=== PATIENT | male | born 1965 | race Caucasian/White ===

== ENCOUNTER 2016-12-07 17:04 | Emergency (ER) | payer OTHER ==
[~2016-12-07] VITALS: Ht 182.9 cm; Wt 149.1 kg
[~2016-12-07 17:04] MED LIST: OXYC-57 PO; RIVA1TAB4 PO; TYLOTC500 PO
[2016-12-07 17:13] VITALS: TEMP 36.8
[2016-12-07 17:36] VITALS: Ht 182.9 cm; Wt 149.1 kg
[2016-12-07] MEDS ORDERED: ALBUT/IPRATROP 3MG/0.5MG NEB 3 ML VIAL INH STA (17:43)
[2016-12-07] MEDS ORDERED: MAGNESIUM SULFATE 1GM / D5W 1 GM BAG IV STA (17:43)
[2016-12-07] MEDS ORDERED: METHYLPREDNISOLONE 125 MG VIAL IV STA (17:43)
[2016-12-07] MEDS ORDERED: AZITHROMYCIN 250 MG TAB PO ONE (17:45)
[2016-12-07 17:50] VITALS: O2SAT 95
[2016-12-07 17:52] LABS: BASO % 0.6 %; BASO ABS # 0.05 K/uL (0-0.2); COMPLETE YES; HEMATOCRIT 44.2 % (42-52); IG% 2.1 %; LYMPH % 30.1 %; LYMPH ABS # 2.45 K/uL (1.2-3.4); MEAN CELL VOLUME 90.8 fL (80-100); MEAN CORPUSCULAR HEMOGLOBIN 29.8 pg (25-34); MEAN CORPUSCULAR HGB CONC 32.8 g/dl (32-36); MEAN PLATELET VOLUME 9.7 fL (7.4-10.4); MONO % 9.5 %; NEUT % 54.7 %; PLATELET COUNT 319 K/uL (130-400); RED BLOOD COUNT 4.87 M/uL (4.7-6.1); WHITE BLOOD COUNT 8.13 K/uL (4.8-10.8)
--- NOTE | 2016-12-07 17:52 | EMERGENCY ROOM VISIT NOTE ---
History First contact with patient: 17:13 (Andrea Hope M.D.) First contact with patient: 17:13 (Elbert Smallwood M.D.) Chief Complaint: SHORTNESS OF BREATH Stated Complaint: SHORTNESS OF BREATH History of Present Illness The patient is a 51 year old male who presents to the Emergency Room with complaints of progressive shortness of breath and cough for 2 weeks. He states he was well previously, and then developed SOB that is worse on exertion as well as a dry hacking cough. He denies a history of asthma or COPD, and states he was exposed to asbestos and therefore has PFTs yearly to check for lung disease, and that his last one was approximately a year ago and was normal. He is also a smoker, and has a 40 pack year history. He denies fever, chest pain, night sweats, nausea, vomiting, or abdominal pain, but states he has also had diarrhea for the last 2 weeks. Over the last year, he states he has been unable to lie flat when sleeping as he gets short of breath and wakes up in the middle of the night with SOB. He has a history of sleep apnea but has not used his CPAP for the last 4 days. Of note, he also has a history of factor V leiden and has previously had blood clots in his legs and lungs. He is currently on a NOAC and states that he has been compliant with this medication. He denies recent surgery, but states he did drive back from [place] 3 days ago, which was a [address] He also has a history of an aortic aneurysm repair. He states he has a history of chronic leg edema for which he uses compression stockings and a water pill, but states that today they are not as swollen as he has not been working in the last two days. He denies alcohol use and recreational drugs. (Andrea Hope M.D.) Review of Systems See HPI for pertinent positives & negatives. A total of 10 systems reviewed and were otherwise negative. (Andrea Hope M.D.) Family History Diabetes mellitus (Andrea Hope M.D.) Diabetes mellitus (Elbert Smallwood M.D.) Social History Smoking Status: Current Every Day Smoker Alcohol Use: none Drug Use: none Housing Status: other Occupation Status: employed (Andrea Hope M.D.) Current/Historical Medications Scheduled Atorvastatin (Lipitor), 1 TAB PO DAILY Azithromycin (Zithromax Z-Palomo), 1 PKT PO UD Edoxaban Tosylate (Savaysa), 60 MG PO DAILY Furosemide (Lasix), 20 MG PO DAILY Ipratropium-Albuterol (Combivent Respimat), 2 PUFFS INH QID Omeprazole (Prilosec), 40 MG PO DAILY Prednisone (Prednisone Tab), 20 MG PO UD Tadalafil (Cialis), 5 MG PO DAILY Tamsulosin Hcl (Flomax), 0.4 MG PO DAILY Physical Exam Vital Signs Date Time Temp Pulse Resp B/P (MAP) Pulse Ox O2 Delivery O2 Flow Rate FiO2 12/07/16 22:36 88 26 128/67 91 12/07/16 21:35 93 12/07/16 21:30 24 126/68 91 Room Air 12/07/16 20:30 78 22 124/72 91 Room Air 12/07/16 19:28 93 26 126/77 93 Room Air 12/07/16 18:30 101 28 126/68 100 Nebulizer 5.0 12/07/16 18:14 79 18 98 Room Air 12/07/16 17:50 95 Room Air 12/07/16 17:50 95 Room Air 12/07/16 17:50 95 Room Air 12/07/16 17:29 90 12/07/16 17:13 36.8 89 22 138/87 94 Room Air (Elbert Smallwood M.D.) Physical Exam General: The patient appeared short of breath after walking from the triage area to his room. He also had several coughing fits during his H&P. HEENT: Head - normocephalic and atraumatic. Pupils are equal, round, and reactive to light. Extraocular eye muscles are intact and sclera are anicteric. Ears - bilaterally patent canals with noninjected tympanic membranes and no evidence of hemotympanum. Nose - moist nasal mucosa without discharge. Mouth - moist buccal mucosa. Oropharynx is nonerythematous and there is no tonsillar exudate or edema noted. Neck: Supple; no JVD, nuchal rigidity, cervical lymphadenopathy, or auscultated bruits. Heart: Regular rate and rhythm. There is a normal S1 and S2 with no murmurs, clicks, or gallops appreciated. Lungs: Diffuse wheezing bilaterally. No crackles or rales. Abdomen: Soft, completely nontender, nondistended, with good bowel sounds. There are no palpable pulsatile masses or hepatosplenomegaly. There is no guarding, rigidity, or rebound noted. Extremities: Bilateral edema of legs with chronic venous stasis dermatitis. No erythema, not tender to touch. Neuro:The patient is awake and alert, oriented to day, time, and place. Muscle strength is 5/5 in all 4 extremities. The patient has equal dedicated driver strength and equal pedal push and pull. There are no cerebellar signs. (Andrea Hope M.D.) Medical Decision & Procedures ER Provider Diagnostic Interpretation: CHEST ONE VIEW PORTABLE CLINICAL HISTORY: Dyspnea. Respiratory distress. COMPARISON STUDY: Chest radiograph November 28, 2014. FINDINGS: Note is made of lordotic positioning. The patient is also mildly rotated. There is no pneumothorax. Minimal left basilar opacity is suggestive of atelectasis. There is no consolidation to suggest pneumonia. Mild cardiomegaly is noted. There is pulmonary vascular congestion without overt edema. There is a trace right pleural effusion. IMPRESSION: 1. Pulmonary vascular congestion without overt pulmonary edema. 2. Suspected trace right pleural effusion. (CHEST FOR PE) ANGIO WITH CT DOSE: 773.79 mGy.cm HISTORY: 51 years-old Male presents with acute atypical chest pain with history of pulmonary embolus TECHNIQUE: Multiple CTA images of the chest were obtained after the intravenous administration of 115 ml Optiray 320. Coronal and sagittal MIPS were obtained from the axial data set and were submitted for review. A dose lowering technique was utilized adhering to the principles of ALARA. COMPARISON: CTA of the chest 08/07/2013. FINDINGS: CTA: Heart is mildly enlarged. No pericardial effusion. Coronary arterial calcifications noted. Thoracic aorta is normal in both course and caliber without aneurysm or dissection. Mild atherosclerotic plaquing of the aorta. The pulmonary arterial tree is opacified to level of the proximal segmental branches. The distal segmental and subsegmental branches are not well opacified. Study is also limited secondary to respiratory motion. No central pulmonary embolus. CT CHEST: No thyroid nodule identified. No pathologic adenopathy seen. Trace right pleural effusion. No pneumothorax. Bronchial wall thickening with areas of peripheral subpleural tree-in-bud nodularity are seen throughout the right lung. Subpleural nodules of the right lung base are seen measuring up to 3 mm. Mild dependent right basilar atelectasis. Mild bronchial wall thickening with some mucous plugging is also seen within the left lung base. No pneumothorax. Mild centrilobular emphysema. The upper abdominal structures are unremarkable. Soft tissues are within normal limits. The bones appear intact. Multilevel endplate spurring of the spine. IMPRESSION: 1. No acute aortic pathology or evidence of pulmonary thromboembolic disease. 2. Trace right pleural effusion with tree-in-bud nodularity and bronchial wall thickening of the right lung suggests bronchitis with bronchiolitis. Mild bronchial wall thickening is also seen on the left. 3. Mild centrilobular emphysema. BILATERAL LOWER EXTREMITY VENOUS DOPPLER HISTORY: Acute bilateral lower extremity swelling with shortness of breath prior h/o b/l DVT, b/l LE swelling, travel 11 hrs by car, SOB COMPARISON STUDY: Duplex venous study 08/11/2013. FINDINGS: RIGHT: There is normal compressibility, flow, and augmentation within the bilateral lower extremity deep venous systems. LEFT: Echogenic stranding is seen within the left superficial femoral through popliteal veins without occlusive thrombus identified. The calf vessels appear to be within normal limits. IMPRESSION: 1. No sonographic evidence of deep venous thrombosis within the right lower extremity. 2. Echogenic stranding within the left superficial femoral and popliteal veins suggests fibrin stranding from chronic DVT. No occlusive deep venous thrombosis of the left lower extremity identified. (Andrea Hope M.D.) Laboratory Results 12/07/16 17:30 Red Blood Count 4.87, Mean Corpuscular Volume 90.8, Mean Corpuscular Hemoglobin 29.8, Mean Corpuscular Hemoglobin Concent 32.8, Mean Platelet Volume 9.7, Neutrophils (%) (Auto) 54.7, Lymphocytes (%) (Auto) 30.1, Monocytes (%) (Auto) 9.5, Eosinophils (%) (Auto) 3.0, Basophils (%) (Auto) 0.6, Neutrophils # (Auto) 4.45, Lymphocytes # (Auto) 2.45, Monocytes # (Auto) 0.77, Eosinophils # (Auto) 0.24, Basophils # (Auto) 0.05 12/07/16 17:30 Test 12/07/16 17:30 12/07/16 17:52 12/07/16 19:30 White Blood Count 8.13 K/uL (4.8-10.8) Red Blood Count 4.87 M/uL (4.7-6.1) Hemoglobin 14.5 g/dL (14.0-18.0) Hematocrit 44.2 % (42-52) Mean Corpuscular Volume 90.8 fL (80-100) Mean Corpuscular Hemoglobin 29.8 pg (25-34) Mean Corpuscular Hemoglobin Concent 32.8 g/dl (32-36) Platelet Count 319 K/uL (130-400) Mean Platelet Volume 9.7 fL (7.4-10.4) Neutrophils (%) (Auto) 54.7 % Lymphocytes (%) (Auto) 30.1 % Monocytes (%) (Auto) 9.5 % Eosinophils (%) (Auto) 3.0 % Basophils (%) (Auto) 0.6 % Neutrophils # (Auto) 4.45 K/uL (1.4-6.5) Lymphocytes # (Auto) 2.45 K/uL (1.2-3.4) Monocytes # (Auto) 0.77 K/uL (0.11-0.59) Eosinophils # (Auto) 0.24 K/uL (0-0.5) Basophils # (Auto) 0.05 K/uL (0-0.2) RDW Standard Deviation 43.5 fL (36.4-46.3) RDW Coefficient of Variation 13.3 % (11.5-14.5) Immature Granulocyte % (Auto) 2.1 % Immature Granulocyte # (Auto) 0.17 K/uL (0.00-0.02) Prothrombin Time 10.9 SECONDS (9.0-12.0) Prothromb Time International Ratio 1.0 (0.9-1.1) Activated Partial Thromboplast Time 28.0 SECONDS (21.0-31.0) Partial Thromboplastin Ratio 1.1 Est Creatinine Clear Calc Drug Dose 166.2 ml/min Estimated GFR () 120.5 Estimated GFR (Non- 104.0 BUN/Creatinine Ratio 12.6 (10-20) Calcium Level 9.4 mg/dl (8.5-10.1) Phosphorus Level 4.8 mg/dl (2.5-4.9) Magnesium Level 2.0 mg/dl (1.8-2.4) Total Bilirubin 0.5 mg/dl (0.2-1) Aspartate Amino Transf (AST/SGOT) 20 U/L (15-37) Alanine Aminotransferase (ALT/SGPT) 34 U/L (12-78) Alkaline Phosphatase 76 U/L (45-117) Troponin I < 0.015 ng/ml (0-0.045) Pro-B-Type Natriuretic Peptide 33 pg/ml (0-900) Total Protein 7.9 gm/dl (6.4-8.2) Albumin 3.3 gm/dl (3.4-5.0) Globulin 4.6 gm/dl (2.5-4.0) Albumin/Globulin Ratio 0.7 (0.9-2) Bedside Hemoglobin 15.3 g/dl (14.0-18.0) Bedside Hematocrit 45 % (42-52) Bedside Sodium 141 mEq/L (135-144) Bedside Potassium 4.0 mEq/L (3.3-5.0) Bedside Chloride 101 mEq/L (101-112) Bedside Total CO2 27 mEq/l (24-31) Anion Gap 17.0 mmol/L (16-25) Bedside Blood Urea Nitrogen 9 mg/dl (7-18) Bedside Creatinine 0.8 mg/dl (0.6-1.3) Bedside Glucose (other) 73 mg/dl (70-99) Bedside Ionized Calcium (Maria Isabel) 1.24 mmol/l (1.12-1.32) Urine Color YELLOW Urine Appearance CLEAR (CLEAR) Urine pH 5.0 (4.5-7.5) Urine Specific [place] > 1.045 (1.000-1.030) Urine Protein 1+ (NEG) Urine Glucose (UA) NEG (NEG) Urine Ketones NEG (NEG) Urine Occult Blood NEG (NEG) Urine Nitrite NEG (NEG) Urine Bilirubin NEG (NEG) Urine Urobilinogen NEG (NEG) Urine Leukocyte Esterase NEG (NEG) Urine WBC (Auto) 1-5 /hpf (0-5) Urine RBC (Auto) 0-4 /hpf (0-4) Urine Hyaline Casts (Auto) 0 /lpf (0-5) Urine Epithelial Cells (Auto) 0-5 /lpf (0-5) Urine Bacteria (Auto) NEG (NEG) (Elbert Smallwood M.D.) Medications Administered Medications (Trade) Dose Ordered Sig/Emily Route Start Time Stop Time Status Last Admin Dose Admin Methylprednisolone Sodium Succinate (Solu-Medrol IV) 125 mg NOW STAT IV 12/07/16 17:43 12/07/16 17:45 DC 12/07/16 17:43 125 MG Magnesium Sulfate (Magnesium Sulfate) 1 gm NOW STAT IV 12/07/16 17:43 12/07/16 17:45 DC 12/07/16 17:43 1 GM Azithromycin (Zithromax Tab) 500 mg NOW ONCE PO 12/07/16 17:45 12/07/16 17:46 DC 12/07/16 19:30 500 MG Albuterol/ Ipratropium (Duoneb) 12 ml ONE STAT INH 12/07/16 17:43 12/07/16 17:45 DC 12/07/16 18:13 12 ML Albuterol (Ventolin Hfa Inhaler) 60 puffs STK-MED ONCE INH 12/07/16 22:23 12/07/16 22:24 DC 12/07/16 22:27 60 PUFFS (Elbert Smallwood M.D.) ECG Indication: SOB/dyspnea Rate (beats per minute): 88 Rhythm: normal sinus Findings: other (normal axis, no ectopy, no STS changes or TWI) (Elbert Smallwood M.D.) ED Course 17:13: The patient was evaluated in room B8. A complete history and physical examination were performed 17:40: The patient was seen with the attending, Dr. Smallwood 17:50: Combivent nebulizers, IV magnesium, 125mg of IV methylprednisone and 500mg of azithromycin ordered 19:15: The patient was reassessed. He is currently on the duonebs, states his breathing is about the same. He was told that his CTA was negative for a clot, but showed mild emphysematous changes & bronchitis. 19:56: The patient was reevaluated. He states his breathing is better. He was up and walking around his room and pulse ox remained 95%. Will try having him walk the hallways and see if his pulse ox remains stable. Discussed d/c with him and that we would d/c him with inhalers, oral steroids and antibiotics. He was agreeable to this. 21:16: US was negative for new DVT. He walked around the hallways and pulse ox remained above 90%, though he looked winded. He states he wants to be discharged home as he has to drive back to [place] tomorrow. Discussed his underlying COPD and smoking cessation. Patient states he has tried Chantix and patch previously and this has not worked, but is agreeable to following up with PCP regarding smoking cessation. (Adnrea Hope M.D.) Medical Decision The patient is a 51 year old male who presents to the Emergency Room with complaints of progressive shortness of breath and cough for 2 weeks. Etiologies including pneumonia, COPD, reactive airway disease, CHF, cardiac ischemia, pulmonary embolism, pneumothorax, musculoskeletal, infections, gastrointestinal , as well as others were entertained. His CT for PE came back negative, and suggested that his symptoms were due to a COPD exacerbation. His ultrasound did not show any evidence of an acute DVT. He states he would like to be discharged, and we will be discharging him with a prescription for prednisone, combivent and azithromycin. He was counselled on resting, not over-exerting himself, and seeking medical attention if he developed chest pain, worsening SOB, or new onset leg swelling, pain and redness. (Andrea Hope M.D.) Impression Primary Impression: COPD exacerbation Additional Impression: Encounter for smoking cessation counseling Departure Information Dispostion Home / Self-Care Prescriptions Prednisone (Prednisone Tab) 20 Mg Tab 20 MG PO UD for 9 Days, #18 TAB Please take 3 pills for 3 days Then 2 pills for 3 days Then 1 pill for 3 days Prov: Andrea Hope M.D. 12/07/16 Ipratropium-Albuterol (COMBIVENT RESPIMAT) 1 Aer Aer 2 PUFFS INH QID for 30 Days, #1 INH Prov: Andrea Hope M.D. 12/07/16 Azithromycin (ZITHROMAX Z-PALOMO) 250 Mg Tab 1 PKT PO UD for 5 Days, #1 PKT Prov: Andrea Hope M.D. 12/07/16 Enid Ferrera M.D. (PCP) Patient Instructions My [facility] Additional Instructions You came to [facility] Emergency Department due to a 2 week history of cough and shortness of breath. Your symptoms are likely due to an infective exacerbation of your underlying COPD. We will be discharging you with a tapering dose of oral steroids, antibiotics and inhalers. If you have any chest pain, worsening shortness of breath, or have a hot, swollen, tender leg, please seek medical attention immediately. The best thing you can do for your symptoms is to quit smoking, as smoking will only worsen your COPD. You have cut down to 5 cigarettes a day for the past 2 weeks, please try not to go back to smoking a pack a day and follow up with your primary care provider regarding smoking cessation and treatment for your COPD. Resident Tracking Resident Involvement: Resident Care Provided Care Provided: Adult ED (Andrea Hope M.D.) Problem Qualifiers
[2016-12-07] MEDS ORDERED: OPTIRAY 320 IV PRN (18:00)
[2016-12-07 18:02] LABS: PARTIAL THROMBOPLASTIN RATIO 1.1; PROTHROMBIN TIME (PATIENT) 10.9 SECONDS (9.0-12.0)
[2016-12-07 18:04] LABS: ISTAT CREATININE 0.8 mg/dl (0.6-1.3); ISTAT HEMOGLOBIN 15.3 g/dl (14.0-18.0); ISTAT IONIZED CALCIUM 1.24 mmol/l (1.12-1.32)
[2016-12-07 18:07] LABS: ALT/SGPT 34 U/L (12-78); BLOOD UREA NITROGEN 10 mg/dl (7-18); BUN/CREATININE RATIO 12.6 (10-20); CALCIUM 9.4 mg/dl (8.5-10.1); CARBON DIOXIDE 27 mmol/L (21-32); CHLORIDE 104 mmol/L (98-107); CREATININE 0.79 mg/dl (0.60-1.40); GLUCOSE 74 mg/dl (70-99); POTASSIUM 4.1 mmol/L (3.5-5.1); SODIUM 139 mmol/L (136-145)
[2016-12-07 18:12] LABS: ALB/GLOB RATIO 0.7 (0.9-2); ALKALINE PHOSPHATASE 76 U/L (45-117); AST/SGOT 20 U/L (15-37); PHOSPHORUS 4.8 mg/dl (2.5-4.9)
[2016-12-07 18:14] VITALS: PULSE 79; O2SAT 98
[2016-12-07] MEDS ORDERED: TAMS0.4C38 PO (18:18)
[2016-12-07] MEDS ORDERED: FURO-85 PO (18:18)
[2016-12-07] MEDS ORDERED: ATOR-24 PO (18:18)
[2016-12-07] MEDS ORDERED: [UNRECOGNIZED DRUG - REMARK] PO (18:18)
[2016-12-07] MEDS ORDERED: TADA5TAB11 PO (18:18)
[2016-12-07] MEDS ORDERED: OMEP40CA41 PO (18:18)
--- NOTE | 2016-12-07 18:20 | DIAGNOSTIC IMAGING REPORT ---
CHEST ONE VIEW PORTABLE CLINICAL HISTORY: Dyspnea. Respiratory distress. COMPARISON STUDY: Chest radiograph November 28, 2014. FINDINGS: Note is made of lordotic positioning. The patient is also mildly rotated. There is no pneumothorax. Minimal left basilar opacity is suggestive of atelectasis. There is no consolidation to suggest pneumonia. Mild cardiomegaly is noted. There is pulmonary vascular congestion without overt edema. There is a trace right pleural effusion. IMPRESSION: 1. Pulmonary vascular congestion without overt pulmonary edema. 2. Suspected trace right pleural effusion. Electronically signed by: Lalo Wright M.D. 12/07/2016 6:18 PM Dictated Date/Time: 12/07/2016 6:17 PM
[2016-12-07] MEDS ORDERED: EDOX1TAB2 PO (18:26)
--- NOTE | 2016-12-07 18:53 | EMERGENCY ROOM VISIT NOTE ---
ED Visit Note First contact with patient: 17:13 The patient was seen and examined with Dr. Hope. I agree with the history , physical and findings. Please see the note for disposition and details. Patient was seen and examined along with the resident. Patient did have a prior history of DVT AAA status post repair. Patient was presenting with some progressively worsening shortness of breath ongoing the last 2 weeks. Patient had been complaining of some infectious symptoms and productive sputum. Patient states that his been trying different novel oral anticoagulant agents was most recently on Sayasa. Patient does have some mild shallow breathing and mild tachypnea after walking back to the room. Patient states this does not feel like the prior time he had a AAA rupture. He denies any abdominal pain or nausea or vomiting. On exam patient doesn't fairly wheezy. Patient does have a chronic history of smoking however he does not take any medications for that. Patient did have blood work, EKG, troponin, BNP chest x-ray, CT PE, and bilateral lower extremity DVT studies. Patient's blood work is fairly unremarkable. Patient had a fairly unremarkable BNP. Patient's white count was within normal limits. Patient's chest x-ray did have some venous congestion but without interstitial pulmonary edema. No consolidation pneumothorax or pleural effusion. Patient's EKG was nonischemic and patient's troponin was not elevated. Patient's CT PE protocol was negative for any PE. Patient was feeling improved after nebs, steroids, mg, and azithro. Patient was told he could stay in house for further trx after his walk test as he did have mild SOB but was not hypoxic. Patient declined after discussing the risk and return precautions. D/c'ed to home w/ Rx's and was counseled on inhaler use as he had not had this prior.
--- NOTE | 2016-12-07 19:06 | DIAGNOSTIC IMAGING REPORT ---
(CHEST FOR PE) ANGIO WITH CT DOSE: 773.79 mGy.cm HISTORY: 51 years-old Male presents with acute atypical chest pain with history of pulmonary embolus TECHNIQUE: Multiple CTA images of the chest were obtained after the intravenous administration of 115 ml Optiray 320. Coronal and sagittal MIPS were obtained from the axial data set and were submitted for review. A dose lowering technique was utilized adhering to the principles of ALARA. COMPARISON: CTA of the chest 08/07/2013. FINDINGS: CTA: Heart is mildly enlarged. No pericardial effusion. Coronary arterial calcifications noted. Thoracic aorta is normal in both course and caliber without aneurysm or dissection. Mild atherosclerotic plaquing of the aorta. The pulmonary arterial tree is opacified to level of the proximal segmental branches. The distal segmental and subsegmental branches are not well opacified. Study is also limited secondary to respiratory motion. No central pulmonary embolus. CT CHEST: No thyroid nodule identified. No pathologic adenopathy seen. Trace right pleural effusion. No pneumothorax. Bronchial wall thickening with areas of peripheral subpleural tree-in-bud nodularity are seen throughout the right lung. Subpleural nodules of the right lung base are seen measuring up to 3 mm. Mild dependent right basilar atelectasis. Mild bronchial wall thickening with some mucous plugging is also seen within the left lung base. No pneumothorax. Mild centrilobular emphysema. The upper abdominal structures are unremarkable. Soft tissues are within normal limits. The bones appear intact. Multilevel endplate spurring of the spine. IMPRESSION: 1. No acute aortic pathology or evidence of pulmonary thromboembolic disease. 2. Trace right pleural effusion with tree-in-bud nodularity and bronchial wall thickening of the right lung suggests bronchitis with bronchiolitis. Mild bronchial wall thickening is also seen on the left. 3. Mild centrilobular emphysema. The above report was generated using voice recognition software. It may contain grammatical, syntax or spelling errors. Electronically signed by: Sohan Escobar M.D. 12/07/2016 7:04 PM Dictated Date/Time: 12/07/2016 6:56 PM
[2016-12-07 19:43] LABS: URINE APPEARANCE CLEAR (CLEAR); URINE BILIRUBIN NEG (NEG); URINE COLOR YELLOW; URINE EPITHELIAL CELL AUTO 0-5 /lpf (0-5); URINE NITRITE NEG (NEG); URINE SPECIFIC GRAVITY > 1.045 (1.000-1.030); UROBILINOGEN NEG (NEG)
[2016-12-07 19:45] LABS: MANUAL MICROSCOPIC REQUIRED? NO; REVIEW REQ? NO
--- NOTE | 2016-12-07 20:45 | DIAGNOSTIC IMAGING REPORT ---
BILATERAL LOWER EXTREMITY VENOUS DOPPLER HISTORY: Acute bilateral lower extremity swelling with shortness of breath prior h/o b/l DVT, b/l LE swelling, travel 11 hrs by car, SOB COMPARISON STUDY: Duplex venous study 08/11/2013. FINDINGS: RIGHT: There is normal compressibility, flow, and augmentation within the bilateral lower extremity deep venous systems. LEFT: Echogenic stranding is seen within the left superficial femoral through popliteal veins without occlusive thrombus identified. The calf vessels appear to be within normal limits. IMPRESSION: 1. No sonographic evidence of deep venous thrombosis within the right lower extremity. 2. Echogenic stranding within the left superficial femoral and popliteal veins suggests fibrin stranding from chronic DVT. No occlusive deep venous thrombosis of the left lower extremity identified. Electronically signed by: Sohan Escobar M.D. 12/07/2016 8:43 PM Dictated Date/Time: 12/07/2016 8:39 PM
[2016-12-07] MEDS ORDERED: PRED20TA2 PO ×4 (21:25→21:49)
[2016-12-07] MEDS ORDERED: IPRA1AER2 INH ×4 (21:25→21:49)
[2016-12-07] MEDS ORDERED: AZITTAB PO ×4 (21:25→21:49)
[2016-12-07] MEDS ORDERED: ALBUTEROL HFA 8 GM INHALER INH ONE ×2 (22:23→22:30)
[2016-12-07 22:36] VITALS: BP 128/67; PULSE 88; O2SAT 91
== END 2016-12-07 22:30 | disposition home or self-care (01) ==
LOC: C.EDB 17:06
DX: J44.1 Chronic obstructive pulmonary disease with (acute) exacerbation (principal); Z71.6 Tobacco abuse counseling; J45.909 Unspecified asthma, uncomplicated; F17.200 Nicotine dependence, unspecified, uncomplicated; Z86.718 Personal history of other venous thrombosis and embolism; Z79.899 Other long term (current) drug therapy; Z98.890 Other specified postprocedural states; Z83.3 Family history of diabetes mellitus

== ENCOUNTER → 2017-03-11 | Day surgery (SDC) | payer OTHER ==
[2017-02-17 15:00] VITALS: Ht 185.4 cm; Wt 144.1 kg
[~2017-03-11] VITALS: Ht 185.4 cm; Wt 144.1 kg
[~2017-03-11] MED LIST changes: +APIX1TAB3 PO; +ASPI325T45 PO; +ATOR-24 PO; +DTRSR/2 PO; +FENTANYL CITRATE INJ 50 MCG/1 ML 2 ML VIAL ONE; +LIDOCAINE HCL 2% 2 ML VIAL (20MG/ML) ONE; +OMEP40CA41 PO; -OXYC-57 PO; +PROPOFOL IV EMULSION 10 MG/ML 20 ML VIAL IV ONE; -RIVA1TAB4 PO; +TADA5TAB11 PO; +TAMS0.4C38 PO; -TYLOTC500 PO
--- NOTE | 2017-03-11 15:11 | Endo History and Physical ---
History & Physical Date of Service: Mar 11, 2017. Chief Complaint: dysphagia Referring Physician: Brenda Bassett PA-C History of Present Illness For EGD Past Medical History Thrombophlebitis Past Surgical History Hx Cardiac Surgery: Yes (AAA REPAIR) Hx Internal Defibrillator: No Hx Pacemaker: No Hx Abdominal Surgery: No Hx of Implantable Prosthesis: No Hx Post-Op Nausea and Vomiting: No Hx Cancer Surgery: No Hx Thoracic Surgery: No Hx Orthopedic: Yes (RT ARM FILTER PLACEMENT FOR BLOOD CLOTS) Hx Urinary Tract Surgery: No Family History Esophogeal CA Social History Smoking Status: Current Every Day Smoker Hx Substance Use: No Hx Alcohol Use: No Allergies Coded Allergies: Shellfish (Verified Allergy, Severe, ANAPHYLAXIS, 02/17/17) Effects breathing, swelling Iodine (Verified Allergy, Intermediate, "swells up", 02/17/17) Current Medications Reported Home Medications Medications Dose Route/Sig Max Daily Dose Days Date Category Detrol LA (Tolterodine Tartrate) 2 Mg Capcr 1 Cap PO HS 02/17/17 Reported Aspirin 325 Mg Tab 1 Tab PO DAILY 02/17/17 Reported Eliquis (Apixaban) 5 Mg Tab 2 Tabs PO BID 02/17/17 Reported Flomax (Tamsulosin Hcl) 0.4 Mg Cap 0.4 Mg PO HS 12/07/16 Reported Cialis (Tadalafil) 5 Mg Tab 5 Mg PO QAM 12/07/16 Reported Lipitor (Atorvastatin Calcium) 40 Mg Tab 1 Tab PO QAM 12/07/16 Reported Prilosec (Omeprazole) 40 Mg Cap 40 Mg PO HS 12/07/16 Reported Vital Signs Weight (Kilograms): 144.09 Height (Feet): 6 Height (Inches): 1 Date Time Temp Pulse Resp B/P (MAP) Pulse Ox O2 Delivery O2 Flow Rate FiO2 03/11/17 14:49 36.5 88 22 144/91 (108) 96 Room Air Physical Exam General Appearance: + obese, + pertinent finding (large castro) Respiratory/Chest: Respiratory effort: no dyspnea Cardiovascular: Heart Auscultation: RRR Abdomen: Inspection & Palpation: soft Assessment and Plan Dysphagia for EGD
--- NOTE | 2017-03-11 15:30 | Discharge Instructions ---
Endoscopy Patient Instructions Date / Procedure(s) Performed Mar 11, 2017. EGD Allergy Information Coded Allergies: Shellfish (Verified Allergy, Severe, ANAPHYLAXIS, 02/17/17) Effects breathing, swelling Iodine (Verified Allergy, Intermediate, "swells up", 02/17/17) Discharge Date / Findings Mar 11, 2017. Schatzki ring dilated Medication Instructions Restart Stopped Medication(s): resume meds Reported Home Medications Medications Dose Route/Sig Max Daily Dose Days Date Category Detrol LA (Tolterodine Tartrate) 2 Mg Capcr 1 Cap PO HS 02/17/17 Reported Aspirin 325 Mg Tab 1 Tab PO DAILY 02/17/17 Reported Eliquis (Apixaban) 5 Mg Tab 2 Tabs PO BID 02/17/17 Reported Flomax (Tamsulosin Hcl) 0.4 Mg Cap 0.4 Mg PO HS 12/07/16 Reported Cialis (Tadalafil) 5 Mg Tab 5 Mg PO QAM 12/07/16 Reported Lipitor (Atorvastatin Calcium) 40 Mg Tab 1 Tab PO QAM 12/07/16 Reported Prilosec (Omeprazole) 40 Mg Cap 40 Mg PO HS 12/07/16 Reported Provider Instructions Activity Restrictions - No exercising or heavy lifting for 24 hours. - Do not drink alcohol the day of the procedure. - Do not drive a car or operate machinery until the day after the procedure. - Do not make any important decisions or sign important papers in 24 hours after the procedure. Following Day: - Return to full activity which may include returning to work/school. Diet Start your diet with liquids and light foods (jello, soup, juice, toast). Then eat your usual diet if not nauseated. Treatment For Common After Affects For mild abdominal pain, bloating, or excessive gas: - Rest - Eat lightly - Lie on right side Follow-Up Information Follow-up with Brenda Bassett PA-C as scheduled Anesthesia Information What You Should Know You have had a procedure that required some medicine to reduce anxiety and discomfort. This treatment is called moderate sedation. After receiving the treatment, you may be sleepy, but you will be able to breathe on your own. The effects of the treatment may last for several hours. Follow these instructions along with Activity/Diet recommendations noted above: * Do NOT do anything where dizziness or clumsiness would be dangerous. * Rest quietly at home today, then you can be up and about tomorrow. * Have a responsible person stay with you the rest of today. * You may have had an I.V. today. If so, you may take the dressing off later today. Recommendations Call your doctor if: * Trouble breathing * Continuous vomiting for more than 24 hours * Temperature above 101 degrees * Severe abdominal pain or bloating * Pain not relieved by pain medicine ordered * There is increased drainage or redness from any incision * A large amount of rectal bleeding greater than 2-3 tablespoons. (If you had a polyp/s removed or have hemorrhoids, a small amount of blood - from the rectum is to be expected.) * You have any unanswered questions or concerns. IN THE EVENT OF A SERIOUS EMERGENCY, GO TO THE NEAREST EMERGENCY ROOM Your discharge instructions were prepared by provider Dennis De Leno. Patient Instructions Signature Page Tobin lFores Patient (or Guardian) Signature/Date: I have read and understand the instructions given to me by my caregivers. Caregiver/RN/Doctor Signature/Date: The above-named patient and/or guardian has received patient instructions on this date. + Original Patient Signature Page (only) stays with chart. Please make copy for patient.
--- NOTE | 2017-03-11 15:34 | GI REPORT ---
Procedure Date: 03/11/2017 3:09 PM Procedure: Upper GI endoscopy Indications: Dysphagia Medicines: Fentanyl 100 micrograms IV, Propofol total dose 220 mg IV, Lidocaine 80 mg IV Complications: No immediate complications. Estimated Blood Loss: Estimated blood loss: none. Procedure: Pre-Anesthesia Assessment: - Prior to the procedure, a History and Physical was performed, and patient medications, allergies and sensitivities were reviewed. The patient's tolerance of previous anesthesia was reviewed. - The risks and benefits of the procedure and the sedation options and risks were discussed with the patient. All questions were answered and informed consent was obtained. After obtaining informed consent, the endoscope was passed under direct vision. Throughout the procedure, the patient's blood pressure, pulse, and oxygen saturations were monitored continuously. The scope was introduced through the mouth, and advanced to the second part of duodenum. The upper GI endoscopy was accomplished without difficulty. The patient tolerated the procedure fairly well. Findings: A mild Schatzki ring (acquired) was found at the gastroesophageal junction. A guidewire was placed and the scope was withdrawn. Dilation was performed with a Savary dilator with no resistance at 54 Fr. The Z-line was regular and was found 45 cm from the incisors. The entire examined stomach was normal. The examined duodenum was normal. Impression: - Mild Schatzki ring. Dilated. - Z-line regular, 45 cm from the incisors. - Normal stomach. - Normal examined duodenum. - No specimens collected. Recommendation: - Discharge patient to home (ambulatory). - Continue present medications. - Return to primary care physician PRN. Dennis De Leon M.D. Dennis De Leon MD 03/11/2017 3:33:36 PM This report has been signed electronically. Note Initiated On: 03/11/2017 3:09 PM I attest to the content of the Intraoperative Record and orders documented therein, exceptions below
--- NOTE | 2017-03-11 15:57 | Anesthesiology Progress Note ---
Anesthesia Post Op Note Date & Time Mar 11, 2017 at 15:57 Vital Signs Pain Intensity: 0 Vital Signs Past 12 Hours Date Time Temp Pulse Resp B/P (MAP) Pulse Ox O2 Delivery O2 Flow Rate FiO2 03/11/17 15:37 78 24 138/78 (98) 95 Oxymask 8 03/11/17 14:49 36.5 88 22 144/91 (108) 96 Room Air Notes Mental Status: alert / awake / arousable, participated in evaluation Pt Amnestic to Procedure: Yes Nausea / Vomiting: adequately controlled Pain: adequately controlled Airway Patency, RR, SpO2: stable & adequate BP & HR: stable & adequate Hydration State: stable & adequate Anesthetic Complications: no major complications apparent
[2017-03-11 16:07] VITALS: BP 129/70; PULSE 84; O2SAT 91
== END | disposition home or self-care (01) ==
LOC: C.GI 14:29
PROVIDERS: ATTEND Internal Medicine Gastroenterology
DX: R13.10 Dysphagia, unspecified (principal); D68.51 Activated protein C resistance; Z86.718 Personal history of other venous thrombosis and embolism; K22.2 Esophageal obstruction; Z98.890 Other specified postprocedural states; F17.200 Nicotine dependence, unspecified, uncomplicated; Z91.013 Allergy to seafood; Z79.4 Long term (current) use of insulin; E66.9 Obesity, unspecified; Z68.41 Body mass index [BMI] 40.0-44.9, adult; Z80.0 Family history of malignant neoplasm of digestive organs

== ENCOUNTER 2019-10-03 07:37 | Inpatient (IN) ==
--- NOTE | 2019-09-19 09:03 | PAT Medication Instructions ---
Medication Instructions Date of Service September 19, 2019 Home Medications Medication Instructions Recorded albuterol sulfate 1 inha INH QID PRN #8 gm 12/05/17 Oxygen Home #1 ea NS 09/26/18 budesonide-formoterol HFA 160 2 puffs INH BID #10.2 gm 07/19/19 mcg-4.5 mcg/actuation aerosol inhaler atorvastatin 40 mg PO QAM omeprazole 40 mg PO QAM tadalafil 5 mg PO QAM Eliquis 5 mg PO BID aspirin 1 tab PO QAM albuterol sulfate 1 inha INH QID PRN ipratropium 0.5 mg-albuterol 3 mg (2.5 mg base)/3 mL nebulization soln 3 ml INHALATION UD PRN tamsulosin 0.4 mg capsule 0.4 mg PO QPM budesonide-formoterol HFA 160 mcg-4.5 mcg/actuation aerosol inhaler 2 puffs INH BID tolterodine 2 mg capsule,extended release 24 hr 2 mg PO QAM hydrocodone-acetaminophen 1 tab PO Q6H PRN ASK your prescriber and surgeon Eliquis 5 mg PO BID aspirin 1 tab PO QAM DO NOT take the morning of surgery tadalafil 5 mg PO QAM tolterodine 2 mg capsule,extended release 24 hr 2 mg PO QAM Take morning of surgery With a small sip of water, OTHERWISE NOTHING TO EAT OR DRINK AFTER MIDNIGHT: atorvastatin 40 mg PO QAM omeprazole 40 mg PO QAM albuterol sulfate 1 inha INH QID PRN (use if needed; please bring with you to hospital day of surgery if possible) ipratropium 0.5 mg-albuterol 3 mg (2.5 mg base)/3 mL nebulization soln 3 ml INHALATION UD PRN (if needed) budesonide-formoterol HFA 160 mcg-4.5 mcg/actuation aerosol inhaler 2 puffs INH BID hydrocodone-acetaminophen 1 tab PO Q6H PRN (okay to take up to 4 hours prior to surgery if needed) Take evening before surgery albuterol sulfate 1 inha INH QID PRN (if needed) ipratropium 0.5 mg-albuterol 3 mg (2.5 mg base)/3 mL nebulization soln 3 ml INHALATION UD PRN (if needed) tamsulosin 0.4 mg capsule 0.4 mg PO QPM budesonide-formoterol HFA 160 mcg-4.5 mcg/actuation aerosol inhaler 2 puffs INH BID hydrocodone-acetaminophen 1 tab PO Q6H PRN (if needed) Other Notes If you have any questions please call us at [phone] or [phone] or [phone] or [phone]
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
[2019-09-20 10:27] LABS: Basophils # (auto) 0.11 K/uL (0-0.2); Basophils % (auto) 1.8 %; Eosinophils # (auto) 0.33 K/uL (0-0.5); Eosinophils % (auto) 5.3 %; Hematocrit (blood only) 44.8 % (42-52); Immature Granulocytes # (auto) 0.18 K/uL (0.00-0.02); Immature Granulocytes % (auto) 2.9 %; Lymphocytes # (auto) 2.09 K/uL (1.2-3.4); Lymphocytes % (auto) 33.9 %; Mean Corpuscular Hemoglobin 30.3 pg (25-34); Mean Corpuscular Hgb Conc 33.5 g/dL (32-36); Mean Corpuscular Volume 90.5 fL (80-100); Mean Platelet Volume 10.5 fL (7.4-10.4); Monocytes # (auto) 0.64 K/uL (0.11-0.59); Monocytes % (auto) 10.4 %; Neutrophils # (auto) 2.82 K/uL (1.4-6.5); Neutrophils % (auto) 45.7 %; Platelet Count 234 K/uL (130-400); RDW Coefficient of Variation 13.1 % (11.5-14.5); RDW Standard Deviation 43.3 fL (36.4-46.3); Red Blood Count 4.95 M/uL (4.7-6.1); White Blood Count 6.17 K/uL (4.8-10.8)
[2019-09-20 10:37] LABS: Partial Thromboplastin Ratio 0.9; Partial Thromboplastin Time 26.5 Seconds (21.0-31.0); Prothrombin Time 10.7 Seconds (9.0-12.0)
[2019-09-20 11:01] LABS: BUN Creatinine Ratio 10.9 (10-20); Calcium 8.7 mg/dl (8.5-10.1); Creatinine Clr Calc Pharmacy 152.4 ml/min; Est GFR (African American) 113.1; Est GFR (Non-African American) 97.6; Potassium 4.6 mmol/L (3.5-5.1)
--- NOTE | 2019-09-21 06:27 | Electrocardiogram Report ---
Test Reason : Blood Pressure : / mmHG Vent. Rate : 071 BPM Atrial Rate : 071 BPM P-R Int : 162 ms QRS Dur : 106 ms QT Int : 392 ms P-R-T Axes : 073 075 052 degrees QTc Int : 425 ms Normal sinus rhythm Normal ECG When compared with ECG of 07-DEC-2016 18:03, No significant change was found Confirmed by Kyle Mcallister ([id number]) on 09/21/2019 6:26:46 AM Referred By: Yamil Diaz Confirmed By:Kyle Mcallister
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
[~2019-10-03 07:37] MED LIST changes: +ALBUMIN HUMAN 5% 12.5 GM/250 ML VIAL IV ONE; -APIX1TAB3 PO; -ASPI325T45 PO; -ATOR-24 PO; +CEFAZOLIN 3000MG 72.5 ML IV SCH; -DTRSR/2 PO; -FENTANYL CITRATE INJ 50 MCG/1 ML 2 ML VIAL ONE; -LIDOCAINE HCL 2% 2 ML VIAL (20MG/ML) ONE; +LR 15ML/HR IV SCH; -OMEP40CA41 PO; -PROPOFOL IV EMULSION 10 MG/ML 20 ML VIAL IV ONE; -TADA5TAB11 PO; -TAMS0.4C38 PO
[2019-10-03] MEDS ORDERED: ONDANSETRON INJ 2 MG/ML 2 ML VIAL ONE (08:53)
[2019-10-03] MEDS ORDERED: PROPOFOL IV EMULSION 10 MG/ML 20 ML VIAL IV ONE ×3 (08:53→08:54)
[2019-10-03] MEDS ORDERED: LIDOCAINE HCL 2% 2 ML VIAL/AMP(20MG/ML) INFIL ONE (08:53)
[2019-10-03] MEDS ORDERED: fentaNYL citrate 100 MCG/2 ML VIAL ONE ×2 (08:54→12:54)
[2019-10-03] MEDS ORDERED: MIDAZOLAM HCL 1 MG/ML 2ML VIAL ONE (08:54)
[2019-10-03] MEDS ORDERED: PROPOFOL IV EMULSION 10 MG/ML 100 ML VIAL IV ONE ×2 (09:05→12:50)
[2019-10-03] MEDS ORDERED: KETAMINE HCL INJ 50 MG/ML 10 ML VIAL ONE (09:47)
--- NOTE | 2019-10-03 09:53 | History & Physical Bridge Note ---
Date of Service October 03, 2019 History & Physical Bridge Note I have examined the patient, reviewed the History & Physical and in the interval since the performance of the History & Physical I have noted the following changes of clinical significance: no changes noted
--- NOTE | 2019-10-03 09:54 | History & Physical Bridge Note ---
Date of Service October 03, 2019 History & Physical Bridge Note Patient for endovascular repair of right iliac artery aneurysm. Lungs are clear. Cor had a RRR. Abd exam is benign. rest of physical exam in the h&p is unchanged. I have examined the patient, reviewed the History & Physical and in the interval since the performance of the History & Physical I have noted the following changes of clinical significance: no changes noted
[2019-10-03] MEDS ORDERED: DiphenhydrAMINE HCL 50 MG/ML VIAL IV ONE (10:14)
[2019-10-03] MEDS ORDERED: GLYCOPYRROLATE 0.2 MG/ML VIAL ONE (10:16)
[2019-10-03] MEDS ORDERED: FAMOTIDINE 20 MG in SYRINGE 3 ML IV ONE (10:20)
[2019-10-03] MEDS ORDERED: LIDOCAINE/EPINEPHRINE 1% INJ 50 ML VIAL ONE (10:20)
[2019-10-03] MEDS ORDERED: LIDOCAINE 2% JELLY 5 ML TUBE ONE ×2 (10:25→11:18)
[2019-10-03] MEDS ORDERED: ATROPINE SULFATE 0.1 MG/ML 10ML SYR IV PRN (10:49)
[2019-10-03] MEDS ORDERED: ONDANSETRON INJ 2 MG/ML 2 ML VIAL IV PRN (10:49)
[2019-10-03] MEDS ORDERED: PROMETHAZINE HCL 12.5 MG in SODIUM CHLORIDE 0.9% 50 ML IV PRN (10:49)
[2019-10-03] MEDS ORDERED: ePHEDrine sulfate 50 MG/ML AMP IV PRN (10:49)
[2019-10-03] MEDS ORDERED: HYDROmorphone INJ 2 MG/ML SYR/VIAL IV PRN (10:49)
[2019-10-03] MEDS ORDERED: fentaNYL citrate 100 MCG/2 ML VIAL IV PRN (10:49)
[2019-10-03] MEDS ORDERED: METOCLOPRAMIDE HCL INJ 5 MG/ML 2 ML VIAL IV PRN (10:49)
[2019-10-03] MEDS ORDERED: ALBUTEROL HFA INHALER 8.5 GM ONE (12:16)
[2019-10-03] MEDS ORDERED: HEPARIN SOD (PORCINE) 1000 UNIT/ML 10 ML VIAL ONE (13:18)
[2019-10-03] MEDS ORDERED: OPTIRAY 300 IV PRN (13:20)
[2019-10-03] MEDS ORDERED: VISIPAQUE IV PRN (13:22)
--- NOTE | 2019-10-03 13:30 | Procedure Note ---
Angiogram Post Procedure Fluoroscopy Time (minutes): 28.3 Radiation (mGy): 2,874.25 Contrast: 50cc Post Operative Report Pre & Post Diagnosis Operation Date: 10/03/19 09:40 Pre-Op Diagnosis: Right Common Iliac Aneurysm Post-Op Diagnosis: Right Common Iliac Aneurysm I identified the patient and participated in the time-out.: Yes Procedure Operation Date: 10/03/19 09:40 Actual Procedures p Percutaneous Endovascular Repair of Right Iliac Artery Aneurysm, Emoblization Ultrasound Localization of Right Femoral Artery(Bilateral) - Yamil Diaz MD Surgeon Yamil Diaz MD Pharmacist Technician Sol Hernandez MD; Brie DOWLING Estimated Blood Loss 50 Findings Consistent with Post-Op Diagnosis Specimens None Anesthesia Type MAC Complications none Disposition Accompanied Patient To Recovery: No Disposition: Recovery Room Indications Right distal external iliac and internal iliac artery aneurysm Description of Procedure The patient was taken to the operating suite. The patient's identity, surgical site, and the procedure were verified. The patient was placed on the operating room table in the supine position. A timeout was performed. Anesthesia administered conscious sedation. The bilateral groins were prepped and draped in the usual standard fashion. Under ultrasound guidance the right common femoral artery was accessed with a needle. A J-wire was advanced through the needle, and the needle was exchanged for a 5F sheath. Hand injection of contrast revealed that our access site was in the common femoral artery over the femoral head. The J-wire was exchanged for an angled glidewire.a glide We attempted to preclose with Perclose devices however each time we attempted to advance the Perclose device into the artery, the device would buckle in the subcutaneous tissue. We tried to troubleshoot this by opening the subcutaneous tissue more with a hemostat, by pre-dilating with a 6F and 8F dilator, and by advancing over stiffer wires (stiff angled glidewire and Layla wire). Despite our attempts, we could not place the Perclose devices for pre-closure, thus we abandoned this and proceeding with the case, with plan to hold manual pressure at the end of the case. Through an 8F sheath, a Rim catheter and an angled glidewire were used to access the right hypogastric artery. An 8F destination sheath was advanced into the proximal right hypogastric artery. Through the destination sheath a 22mm x 18mm amplatzer plug was deployed into the hypogastric. Hand injection through the sheath after it was pulled back into the origin of the external iliac artery revealed that the plug extended to the origin of the hypogastric but did not extend into the common iliac. Flow through the common iliac artery into the external iliac artery remained intact. A glidewire and Kumpke catheter were advanced through the aortic stent. The 8F sheath was exchanged for a 12F sheath over a layla wire. Through the 12F sheath and over a Layla wire the right iliac limb gristmill operator (16mm x 14.5mm x 14cm) was advanced. This was deployed so that there was good overlap with the existing right iliac limb but extending across the origin of the hypogastric into the external iliac artery. After the gristmill operator was deployed a Q50 balloon was inflated along its length to ensure good wall apposition. The glidewire and Kumpe catheter were again placed at the proximal aspect of the aortic graft for a completion angiogram. This demonstrated patent bilateral limbs of the graft, good position of the gristmill operator so that it was covering the origin of the hypogastric on the right. There were no endoleaks. The hypogastric on the left appeared patent. No flow was noted in the hypogastric on the right around the coil. The sheath was then pulled from the groin and manual pressure was held for 30 minutes. The patient tolerated the procedure well and without immediate comp lication. Hemostasis was obtained in the access site in the right groin and there was no hematoma. A pressure dressing was applied. There were DP and PT signals on Doppler at the conclusion of the case. He was taken to the recovery room in satisfactory condition. Dr. Diaz was present and scrubbed for the entire procedure. I attest to the content of the Intraoperative Record and any orders documented therein. Any exceptions are noted below.
[2019-10-03] MEDS ORDERED: ALBUTEROL HFA 8 GM INHALER INH PRN (13:34)
[2019-10-03] MEDS ORDERED: ALBUT/IPRATROP 3MG/0.5MG NEB 3 ML VIAL INH PRN (13:34)
--- NOTE | 2019-10-03 13:37 | Post Operative Brief Note ---
Immediate Post Op Note v1 Date of Surgery October 03, 2019 Pre & Post Diagnosis Operation Date: 10/03/19 09:40 Pre-Op Diagnosis: Right Common Iliac Aneurysm Post-Op Diagnosis: Right Common Iliac Aneurysm I identified the patient and participated in the time-out.: Yes Procedure Operation Date: 10/03/19 09:40 Actual Procedures p Percutaneous Endovascular Repair of Right Iliac Artery Aneurysm, Emoblization Ultrasound Localization of Right Femoral Artery(Bilateral) - Yamil Diaz MD Surgeon Yamil Diaz MD Power Builder Developer Sol Hernandez MD; Brie DOWLING Estimated Blood Loss 50 Findings Consistent with Post-Op Diagnosis Anesthesia Type MAC Complications none Disposition Accompanied Patient To Recovery: No Disposition: Recovery Room
--- NOTE | 2019-10-03 15:13 | Anesthesiology Progress Note ---
Date of Service October 03, 2019 Anesthesia Post Procedure Vital Signs Vital Signs: Temp Pulse Pulse Resp BP BP Pulse Ox 10/03/19 14:50 74 21 131/87 98 10/03/19 14:40 72 17 129/80 96 10/03/19 14:30 36.4 C L 74 19 117/72 96 10/03/19 14:20 67 19 112/70 99 10/03/19 14:10 73 17 125/70 99 10/03/19 14:00 36.2 C L 70 17 130/72 98 10/03/19 08:21 36.5 C 75 18 130/85 95 Pain Intensity Bilateral Leg: Pain Intensity: 3 Transfer of Care Handoff Completed per policy Notes Mental Status: alert / awake / arousable and participated in evaluation Patient Amnestic to Procedure: Yes Nausea / Vomiting: adequately controlled Pain: adequately controlled Airway Patency, RR, SpO2: stable & adequate BP & HR: stable & adequate Hydration State: stable & adequate Anesthetic Complications: no major complications apparent
[2019-10-03] MEDS: D5W AND 1/2NSS 1,000 ML IV SCH (17:38)
[2019-10-03] MEDS ORDERED: methylPREDNISolone 40 MG in SYRINGE 0 ML IV SCH (18:00)
[2019-10-03 18:15] LABS: Hematocrit (blood only) 43.5 % (42-52); Hemoglobin 14.8 g/dL (14.0-18.0)
[2019-10-03] MEDS: CEFAZOLIN 2000MG 2,000 MG/15 ML SYR IV SCH (19:23)
[2019-10-03] MEDS ORDERED: TAMSULOSIN HCL 0.4 MG CAP PO SCH (21:00)
[2019-10-04] MEDS: D5W AND 1/2NSS 1,000 ML IV SCH (01:56)
[2019-10-04] MEDS: CEFAZOLIN 2000MG 2,000 MG/15 ML SYR IV SCH (03:47)
[2019-10-04] MEDS ORDERED: Nursing to Pharmacy Communication SCH (05:30)
[2019-10-04 05:53] LABS: Basophils # (auto) 0.02 K/uL (0-0.2); Basophils % (auto) 0.2 %; Eosinophils # (auto) 0.03 K/uL (0-0.5); Eosinophils % (auto) 0.3 %; Hematocrit (blood only) 40.8 % (42-52); Hemoglobin 14.1 g/dL (14.0-18.0); Immature Granulocytes # (auto) 0.08 K/uL (0.00-0.02); Immature Granulocytes % (auto) 0.7 %; Lymphocytes # (auto) 1.98 K/uL (1.2-3.4); Mean Corpuscular Hemoglobin 30.9 pg (25-34); Mean Corpuscular Hgb Conc 34.6 g/dL (32-36); Mean Corpuscular Volume 89.3 fL (80-100); Mean Platelet Volume 10.4 fL (7.4-10.4); Monocytes # (auto) 1.32 K/uL (0.11-0.59); Neutrophils # (auto) 7.59 K/uL (1.4-6.5); Neutrophils % (auto) 68.8 %; Platelet Count 222 K/uL (130-400); RDW Coefficient of Variation 12.6 % (11.5-14.5); RDW Standard Deviation 40.8 fL (36.4-46.3); Red Blood Count 4.57 M/uL (4.7-6.1); White Blood Count 11.02 K/uL (4.8-10.8)
[2019-10-04 06:06] LABS: BUN Creatinine Ratio 12.2 (10-20); Calcium 8.8 mg/dl (8.5-10.1); Est GFR (African American) 116.4; Est GFR (Non-African American) 100.5; Potassium 3.8 mmol/L (3.5-5.1)
--- NOTE | 2019-10-04 07:36 | Anesthesiology Progress Note ---
Date of Service October 04, 2019 Anesthesia Post Procedure Vital Signs Vital Signs: Temp Pulse Pulse Pulse Resp BP BP 10/04/19 05:16 67 10/04/19 04:35 36.8 C 72 18 107/67 10/03/19 21:11 36.8 C 82 22 122/70 10/03/19 20:14 37.2 C 79 21 114/78 10/03/19 19:00 36.4 C L 75 23 118/65 10/03/19 18:06 37.2 C 72 20 118/73 10/03/19 17:18 65 10/03/19 17:04 37.0 C 63 22 118/70 10/03/19 16:32 36.9 C 75 22 111/75 10/03/19 16:00 36.7 C 58 L 23 130/82 10/03/19 15:48 36.7 C 71 21 121/76 10/03/19 15:30 36.8 C 75 21 121/81 10/03/19 15:15 70 18 117/79 10/03/19 15:00 36.5 C 68 22 132/66 10/03/19 14:50 74 21 131/87 10/03/19 14:40 72 17 129/80 10/03/19 14:30 36.4 C L 74 19 117/72 10/03/19 14:20 67 19 112/70 10/03/19 14:10 73 17 125/70 10/03/19 14:00 36.2 C L 70 17 130/72 10/03/19 08:21 36.5 C 75 18 130/85 Pulse Ox 10/04/19 05:16 10/04/19 04:35 93 10/03/19 21:11 90 10/03/19 20:14 91 10/03/19 19:00 90 10/03/19 18:06 91 10/03/19 17:18 10/03/19 17:04 90 10/03/19 16:32 93 10/03/19 16:00 92 10/03/19 15:48 91 10/03/19 15:30 93 10/03/19 15:15 92 10/03/19 15:00 93 10/03/19 14:50 98 10/03/19 14:40 96 10/03/19 14:30 96 10/03/19 14:20 99 10/03/19 14:10 99 10/03/19 14:00 98 10/03/19 08:21 95 Pain Intensity Bilateral Leg: Pain Intensity: 3 Notes Mental Status: alert / awake / arousable and participated in evaluation Patient Amnestic to Procedure: Yes Nausea / Vomiting: adequately controlled Pain: adequately controlled Airway Patency, RR, SpO2: stable & adequate BP & HR: stable & adequate Hydration State: stable & adequate Anesthetic Complications: no major complications apparent and Pt Satisfied with anesthetic care
[2019-10-04] MEDS ORDERED: SPIRONOLACTONE 25 MG TAB PO SCH (09:00)
[2019-10-04] MEDS ORDERED: FLUTICASONE/VILANTEROL 100/25MCG 14 PUFFS/INHALER INH SCH (09:00)
[2019-10-04] MEDS ORDERED: TOLTERODINE TARTRATE LA 2 MG CAPCR PO SCH (09:00)
[2019-10-04] MEDS ORDERED: ATORVASTATIN 40 MG TAB PO SCH (09:00)
[2019-10-04] MEDS ORDERED: PANTOprazole 40 MG TAB PO SCH (09:00)
[2019-10-04] MEDS ORDERED: FUROSEMIDE 20 MG TAB PO SCH (09:00)
[2019-10-04] MEDS ORDERED: ASPIRIN 325 MG ECTAB PO SCH (09:00)
[2019-10-04] MEDS: OXYCODONE/ACETAMINOPHEN 5mg/325mg TAB PO PRN ×2 (09:09→15:41)
--- NOTE | 2019-10-04 13:32 | Surgery Progress Note ---
Date of Service October 04, 2019 Assessment & Plan (1) Iliac artery aneurysm, right: Patient doing well. Will d/c today. Admission and Anticipated Discharge Date Admission Date: October 03, 2019 Subjective Patient complaining of right groin discomfort from the puncture site. No other complaints. Physical Exam Constitutional: WD/WN, vitals as above Cardiovascular: Vessels: femoral pulses present and dorsalis pedis pulses present Extremities: normal capillary refill; no edema Skin: Puncture site clean and dry. Soft. No hematoma present. Results & Data ([facility]) Vital Signs (Past 12 Hours) Vital Signs Temp Pulse Pulse Pulse Resp BP Pulse Ox 10/04/19 11:21 36.6 C 84 20 146/88 H 92 10/04/19 07:44 36.7 C 74 18 142/74 H 92 10/04/19 05:16 67 10/04/19 04:35 36.8 C 72 18 107/67 93
[2019-10-04] MEDS ORDERED: APIXABAN 5 MG TABLET PO SCH (21:00)
--- NOTE | 2019-10-08 09:49 | Discharge Summary ---
Date of Service October 04, 2019 Admission HPI Per Admitting Provider Dear Dr. Hill: I had the pleasure of seeing Mr. Tobin Flores in the Vascular Surgery Clinic in followup for his abdominal aortic aneurysm. As you know, this is a very pleasant 53-year-old gentleman, who underwent endovascular repair of ruptured abdominal aortic aneurysm in 2013. We have been continuing to follow him since that time for interval assessment of his aneurysm. He indicates that since over the last several months, he has had worsening shortness of breath. He is now seeing a nurse companion for this. On review of the nurse companion's notes, it is not entirely clear why his dyspnea may have worsened. His shortness of breath is thought largely to be attributed to his COPD and morbid obesity, with a possible contribution from some pulmonary hypertension. This is in the setting of his factor V Leiden deficiency and known venous thromboembolic disease. As part of his workup for this, he did undergo a cardiac catheterization recently. This demonstrated mild coronary artery disease, in addition to borderline pulmonary hypertension. Since we last saw him, he indicates that he has not had any abdominal pain or back pain. He continues to have bilateral lower extremity edema and discolor ation. He has difficulty walking both because of his shortness of breath, but also due to the worsening numbness of his bilateral feet. He is currently taking Eliquis for his history of venous thromboembolic disease. On physical examination, his vital signs are as follows. Oxygen saturation 96% on room air, heart rate 80, blood pressure is 136/78 on the left and 128/80 on the right. He is well appearing, well nourished. He does appear somewhat short of breath. He is able to complete most sentences; however, sometimes does need to stop to catch his breath prior to completing a sentence. He is on room air. His pulse is regular. His abdomen is obese, but soft, nondistended, and nontender. There are no palpable pulsatile abdominal masses. His bilateral femoral pulses are palpable and normal. He does have a bluish discoloration to the bilateral feet. He has hyperpigmentation to the bilateral shins and thickening of the skin of the bilateral shins. He has no wounds to either foot. He has palpable dorsalis pedis pulses to the bilateral feet. He has very little sensation to the feet. His motor is intact to the bilateral feet. On review of his abdomen and pelvis CT angio, which was performed on 09/05, this is notable for good position of his bifurcated aortoiliac stent graft. There is no endoleak visualized. The sac size is currently measuring 6.7 x 3.5 cm. It previously measured 8.1 x 6.6 cm. There is increase in size of a right common iliac artery aneurysm, which now measures 3.4 cm in greatest diameter. This previously measured 2.5 cm. In addition, there is a right internal iliac artery aneurysm, which measures 3.1 cm from 2.1 cm previously. The left internal iliac artery does appear patent on the CT angio. In summary, this is a very pleasant 53-year-old gentleman, who presents for followup following endovascular aneurysm repair back in 2013 for ruptured abdominal aortic aneurysm. His sac size from his abdominal aortic aneurysm appears to be decreasing and there is no endoleak visualized. He does have a right common iliac artery aneurysm, which does meet size criteria for repair. I do worry that if this right common iliac artery aneurysm were to continue to enlarge, there would be a type 1B endoleak. Therefore, I discussed addressing the right common iliac artery aneurysm over the next couple of months. I would like to perform embolization of the right internal iliac artery and extend the right limb of the aortic endograft in order to cover the aneurysmal iliac artery. I have explained the procedure to the patient. I have explained the alternatives and the associated risks. We did obtain informed consent today. The patient wished to proceed with the procedure. He will need to hold his Eliquis preoperatively. We would like to perform this procedure under sedation given the patient's comorbidities including his pulmonary status. Thank you for allowing me to participate in the care of this patient. Please do not hesitate to contact me with questions or concerns. I saw and evaluated the patient. Discussed with the resident and agree with the resident's findings and plan as documented in the resident's note. Signature Line Electronic Signature on File CC: Enid Hill MD [address] [place] [id number] Sol Singh MD Author Signature Dt/Tm: 09/17/2019 07:11 AM Resident Division of Vascular Surgery Electronically Reviewed/Signed by: Yamil Diaz MD Cosigner Signature Dt/Tm: 09/13/2019 07:47 AM Solar Water Heater Installer [facility] [address], [address] [place] [address] Admission Exam Per Admitting Provider On physical examination, his vital signs are as follows. Oxygen saturation 96% on room air, heart rate 80, blood pressure is 136/78 on the left and 128/80 on the right. He is well appearing, well nourished. He does appear somewhat short of breath. He is able to complete most sentences; however, sometimes does need to stop to catch his breath prior to completing a sentence. He is on room air. His pulse is regular. His abdomen is obese, but soft, nondistended, and nontender. There are no palpable pulsatile abdominal masses. His bilateral femoral pulses are palpable and normal. He does have a bluish discoloration to the bilateral feet. He has hyperpigmentation to the bilateral shins and thickening of the skin of the bilateral shins. He has no wounds to either foot. He has palpable dorsalis pedis pulses to the bilateral feet. He has very little sensation to the feet. His motor is intact to the bilateral feet. Principal Diagnosis 1. s/p Endovascular repair of R iliac artery aneurysm 2. R iliac artery aneurysm Discharge Exam Constitutional WD/WN, vitals as above Cardiovascular Vessels: femoral pulses present and dorsalis pedis pulses present Extremities: normal capillary refill; no edema Discharge Data Allergies Allergy/AdvReac Type Severity Reaction Status Date / Time shellfish derived Allergy Severe ANAPHYLAXIS Verified 10/03/19 08:09 iodine Allergy Intermediate "swells up" Verified 10/03/19 08:09 Procedures Performed Operation Date: 10/03/19 09:40 Actual Procedures p Percutaneous Endovascular Repair of Right Iliac Artery Aneurysm, Emoblization Ultrasound Localization of Right Femoral Artery(Bilateral) - Yamil Diaz MD Ordered Studies 10/03/19 EV aneurysm iliac repair Routine 10/03/19 07:29 US EV guide vascular access Routine Hospital Course (1) Iliac artery aneurysm, right: Patient doing well POD #1. Will d/c today. Total Time Total Time Spent Total Time Spent (In Minutes): 0 Discharge Plan Discharge Items Patient Disposition: Home - Self-Care Reason For Visit: Right Iliac Aneurysm Discharge Diagnosis: Right iliac artery aneurysm Activity: Per Instructions section Non-emergency contact: Surgeon Call non-emergency contact if: your temperature is above 101.5, your wound has increased redness, your wound has increased drainage and your wound pain has increased Follow-up/Referrals: Enid Hill MD [Primary Care Provider] - 10/10/19 8:30 am Diet: Heart Healthy Addtl Attending Provider Instructions: SPECIAL CARE INSTRUCTIONS: Medications: * Continue to take your medications as directed. Incision/Puncture Site Care: * You will have an incision or puncture in each of your groins. Liquid glue will be used to seal your incisions/puncture site. This will lift off as the incisions/puncture sites heal. * If Liquid glue is not used, there will be small dressings covering your incisions. After you get home, you may remove the dressings and shower - allowing the warm soapy water to run over it. * Be sure to dry the sites well and keep them dry. * DO NOT SOAK IN A TUB/POOL/etc. UNTIL ALL SURGICAL SITES ARE HEALED. DO NOT REMOVE THE GLUE UNTIL THE INCISIONS HEAL. Restrictions: * Limit yourself to work measurement engineer activity for the first week. * You may walk and go up and down steps. * Avoid excessive bending or movement at the level of the incisions or punctures. Risks and Possible Complications: * Infection/Drainage/Bleeding - Drainage or bleeding from the incisions/puncture site should be minimal. If you have excessive bleeding or drainage, call our office ([phone]) right away. * Pain/Numbness - You may experience some mild pain or soreness at your incision sites. You may also have some numbness around the incisions or into the insides of your thighs. Bruising is normal and should resolve within 2 weeks. * Changes in Appetite or Bowel Habits - Mostly related to anesthesia and pain medication, some patients have reported decreased appetite and/or problems with constipation. These symptoms usually improve over a few weeks. Remembering to take an [id number] stool softener, as directed, will help you to avoid constipation. Call our office and seek emergent treatment if you develop: * Fever or chills * Have a temperature greater than 101 degrees F * Any redness or purulent drainage from your incisions or punctures * Severe abdominal, chest or back pain SKIN IRRITATION: * You may experience some redness and/or swelling in the area where radiation was administered. If any skin irritation occurs, please contact your family physician. You will be receiving a call from the Vascular Surgery Nurse after you are discharged. FOLLOW UP VISIT: It is important for you to keep your follow up appointments with your medical provider. Keep any scheduled doctor appointments. Call [phone] to schedule a follow up appointment if one not already scheduled. Pending Studies at Discharge: No Stand-Alone Forms: My [facility], Smoking Cessation Medications and DC Order Prescriptions: Continued atorvastatin 40 mg Tablet 40 mg PO QAM Qty: 0 RF: 0 omeprazole 40 mg Capsule,Delayed Release(Dr/Ec) 40 mg PO QAM Qty: 0 RF: 0 tadalafil 5 mg Tablet 5 mg PO QAM Qty: 0 RF: 0 Eliquis 5 mg Tablet 5 mg PO BID Qty: 0 RF: 0 aspirin 325 mg Tablet 1 tab PO QAM Qty: 0 RF: 0 (DME) Oxygen Home Liters Per Minute See Dose Instructions .ROUTE .MEDSUPPLY Qty: 1 RF: 0 tolterodine [Detrol LA] 2 mg capsule,extended release 24hr 2 mg PO QAM Qty: 0 RF: 0 Symbicort 160-4.5 mcg/actuation HFA aerosol inhaler 2 puffs INH BID Qty: 10.2 RF: 0 tamsulosin [Flomax] 0.4 mg capsule 0.4 mg PO QPM RF: 0 ipratropium-albuterol 0.5 mg-3 mg(2.5 mg base)/3 mL solution for nebulization 3 ml inhalation UD PRN (Reason: Wheezing) Qty: 2 RF: 0 albuterol sulfate 90 mcg/actuation HFA aerosol inhaler 1 inha INH QID PRN (Reason: shortness of breath) Qty: 8 RF: 0 hydrocodone-acetaminophen 10-325 mg Tablet 1 tab PO Q6H PRN (Reason: Pain) RF: 0 furosemide 40 mg Tablet 60 mg PO DAILY RF: 0 spironolactone 25 mg Tablet 25 mg PO DAILY RF: 0 Discharge Orders: Discharge Order (Routine); Ordered 10/04/19 Ordered By: Yamil Diaz Admission Data Admit Date/Time: 10/03/19 13:29 Attending Provider: Yamil Diaz Admit Provider: Yamil Diaz Primary Care Provider: Enid Hill Other Interventions: Discharge Summary Assessment (RN) Last Done: 10/04/19 14:16
== END 2019-10-04 15:50 | disposition home or self-care (01) | DRG 253 ==
LOC: ASU 07:37 → 2S 13:29
PROC: EV.EVAR (2019-10-03 09:40)

== ENCOUNTER 2022-01-19 09:59 | Observation (INO) ==
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
--- NOTE | 2022-01-19 11:43 | XRay Report ---
SINGLE VIEW CHEST CLINICAL HISTORY: Dyspnea FINDINGS: An AP, portable, upright chest radiograph is compared to study dated 06/25/2019 and correlat ed with chest CT dated 11/29/2017. The heart is enlarged. The pulmonary vasculature is noncontrast. E mphysema and chronic interstitial thickening is similar to previous. There is bibasilar scarring/atel ectasis. No airspace consolidation or large pleural effusion is identified. No pneumothorax is seen. The skeletal structures appear osteopenic. There are healed left-sided rib fractures. IMPRESSION: Cardiomegaly and emphysema with no acute cardiopulmonary abnormality identified. ACT 112: Negative or not required by law. Electronically signed by: Mark Giron M.D. 01/19/2022 11:41 AM
[2022-01-19 12:26] LABS: Basophils % (auto) 1.6 %; Eosinophils # (auto) 0.22 K/uL (0-0.50); Eosinophils % (auto) 3.5 %; Hemoglobin 14.3 g/dl (14.0-18.0); Immature Granulocytes # (auto) 0.07 K/uL (0.00-0.02); Immature Granulocytes % (auto) 1.1 %; Lymphocytes # (auto) 1.81 K/uL (1.2-3.4); Lymphocytes % (auto) 28.7 %; Mean Corpuscular Hemoglobin 30.9 pg (25.0-34.0); Mean Corpuscular Volume 90.7 fL (80.0-100.0); Mean Platelet Volume 9.8 fL (9.4-12.4); Monocytes % (auto) 9.5 %; Neutrophils % (auto) 55.6 %; Platelet Count 260 K/uL (130-400); RDW Coefficient of Variation 12.5 % (11.5-14.5); RDW Standard Deviation 41.2 fL (36.4-46.3); Red Blood Count 4.63 M/uL (4.63-6.08)
[2022-01-19 12:37] LABS: Base Excess VBG 5.3 mEq/L; HCO3 VBG 32 mmol/L; Oxygen Saturation VBG < 60.0 %; PCO2 VBG 54 mmHg (38-50); PO2 VBG 26 mmHg; pH VBG 7.38 (7.36-7.41)
[2022-01-19 12:39] LABS: Partial Thromboplastin Time 26.4 Seconds (21.0-31.0); Prothrombin Time 10.9 Seconds (9.0-12.0)
[2022-01-19 12:59] LABS: Troponin I High Sensitivity 3.9 pg/ml (0-20)
[2022-01-19 13:12] LABS: Albumin Globulin Ratio 1.1 (0.9-2); Albumin Level 3.9 gm/dl (3.4-5.0); BUN Creatinine Ratio 11.6 (10-20); Bilirubin,Total 0.9 mg/dl (0.2-1.0); Calcium 9.4 mg/dl (8.5-10.1); Est GFR (Non-African American) 106.1 ml/min; Globulin 3.5 gm/dl (2.5-4.0); Magnesium 1.8 mg/dl (1.7-2.4); Total Protein 7.4 gm/dl (6.0-8.3)
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
--- NOTE | 2022-01-19 13:54 | Electrocardiogram Report ---
Test Reason : Blood Pressure : / mmHG Vent. Rate : 085 BPM Atrial Rate : 085 BPM P-R Int : 160 ms QRS Dur : 100 ms QT Int : 372 ms P-R-T Axes : 065 040 034 degrees QTc Int : 442 ms Normal sinus rhythm Normal ECG When compared with ECG of 20-SEP-2019 10:05, No significant change was found Confirmed by Gideon Paris ([id number]) on 01/19/2022 1:54:32 PM Referred By: Enid Hill Confirmed By:Gideon Paris
[2022-01-19] MEDS ORDERED: oxyCODONE/ACETAMINOPHEN 10-325 TAB PO PRN (14:35)
--- NOTE | 2022-01-19 16:12 | Ultrasound Report ---
BILATERAL LOWER EXTREMITY VENOUS DOPPLER HISTORY: Pain and swelling of the lower legs BL LE swlling, hx of DVT's while on eliquis COMPARISON STUDY: None. FINDINGS: Chronic appearing nonocclusive thrombus within the right popliteal vein. The right calf vei ns are suboptimally visualized secondary to subcutaneous edema. The midportion of the left common fem oral vein as well as the left popliteal vein are partially compressible. No acute DVT identified. The left calf veins are suboptimally visualized secondary to subcutaneous edema. IMPRESSION: 1. No acute occlusive DVT identified. 2. Findings suggestive of chronic nonocclusive thrombi of the bilateral lower legs as above. ACT 112: Negative or not required by law. Electronically signed by: Shaun Escobar M.D. 01/19/2022 4:11 PM
[2022-01-19] MEDS ORDERED: HYDROcodone/ACETAMINOPHEN 10/325 TAB PO PRN (16:38)
[2022-01-19] MEDS ORDERED: ACETAMINOPHEN 325 MG TAB PO PRN (16:38)
[2022-01-19] MEDS: HYDROcodone/ACETAMINOPHEN 10/325 TAB PO PRN (18:16)
[2022-01-19] MEDS: FUROSEMIDE 20 MG TAB PO SCH (18:16)
[2022-01-19] MEDS ORDERED: PNEUMOCOCCAL POLYSACCHARIDES 25 MCG/0.5 ML VIAL/SYR IM ONE (19:24)
[2022-01-19] MEDS ORDERED: FLUARIX QUADRIVALENT 0.5 ML SYR IM ONE (19:24)
[2022-01-19] MEDS ORDERED: TAMSULOSIN HCL 0.4 MG CAP PO SCH (21:00)
[2022-01-19] MEDS: APIXABAN 5 MG TABLET PO SCH (21:16)
[2022-01-20] MEDS: HYDROcodone/ACETAMINOPHEN 10/325 TAB PO PRN ×2 (00:13→07:56)
[2022-01-20 07:28] LABS: Hematocrit (blood only) 43.1 % (40.1-51.0); Hemoglobin 14.3 g/dl (14.0-18.0); Mean Corpuscular Hemoglobin 30.6 pg (25.0-34.0); Mean Corpuscular Hgb Conc 33.2 g/dL (32.0-36.0); Mean Corpuscular Volume 92.3 fL (80.0-100.0); Mean Platelet Volume 9.6 fL (9.4-12.4); Platelet Count 257 K/uL (130-400); RDW Coefficient of Variation 12.6 % (11.5-14.5); RDW Standard Deviation 42.8 fL (36.4-46.3); Red Blood Count 4.67 M/uL (4.63-6.08); White Blood Count 6.14 K/ul (4.8-10.8)
[2022-01-20 07:51] LABS: Albumin Globulin Ratio 1.1 (0.9-2); Albumin Level 3.9 gm/dl (3.4-5.0); BUN Creatinine Ratio 13.4 (10-20); Bilirubin,Total 0.7 mg/dl (0.2-1.0); Creatinine Clr Calc Pharmacy 165.1 ml/min; Est GFR (African American) 114.6 ml/min; Est GFR (Non-African American) 98.9 ml/min; Globulin 3.4 gm/dl (2.5-4.0); Potassium 3.8 mmol/L (3.5-5.1); Total Protein 7.3 gm/dl (6.0-8.3)
[2022-01-20] MEDS: FUROSEMIDE 20 MG TAB PO SCH (07:58)
[2022-01-20] MEDS: APIXABAN 5 MG TABLET PO SCH (07:58)
[2022-01-20] MEDS ORDERED: ASPIRIN 325 MG ECTAB PO SCH (09:00)
[2022-01-20] MEDS ORDERED: ATORVASTATIN 40 MG TAB PO SCH (09:00)
[2022-01-20] MEDS ORDERED: UMECLIDINIUM/VILANTEROL 62.5/25MCG 7 PUFFS/INHALER INH SCH (09:00)
[2022-01-20] MEDS ORDERED: FLUTICASONE FUROATE 200MCG 14 PUFFS/INHALER INH SCH (09:00)
[2022-01-20] MEDS ORDERED: PANTOprazole 40 MG TAB PO SCH (09:00)
--- NOTE | 2022-01-20 12:11 | XCELERA ---
[id number]
--- NOTE | 2022-01-20 12:21 | Discharge Summary ---
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 Diaz on 10/02/21, factor V Leiden on Eliquis for previous DVT's and PE's, endovascular repair of ruptured abdominal aortic aneurysm in 2013, BL venous stasis, GERD, BPH, and impaired fasting blood glucose who presented to the [facility] ED on 01/19/22 at the recommendation of his PC P for hypoxia. Per the ED staff, the patient presented to his PCP's office this am for 2 month's of worsening SOB, of which he is seen outpatient by pulmonology. He was reportedly hypoxic at his PCP's office today but there was no reported SpO2, they recommended he come to the ED. In the ED the patient was found to be afebrile, hemodynamically stable, and stable on RA. Labs were remarkable for CBC WNL, stable VBG, stable renal function and electrolytes, glucose of 122, AST of 42, otherwise stable renal function, and negative covid screen. Chest xray showed "Cardiomegaly and emphysema with no acute cardiopulmonary abnormality identified.". Although the patient was stable and without major lab abnormalities we were asked to admit the patient for further workup of his significant BL LE swelling due to high risk of DOAC failure with his obesity. At the time of the exam the patient was sitting in a chair in his room and was frustrated with the care he had received so far. I was able to calm him down and get him to explain what had been going on recently. He states that for the past 2 months his chronic SOB has progressed to the point that he can only walk short distances until he gets significantly SOB. Walking from the chair to the bed was approximately 10 ft, he got significantly SOB with that walk. He has been taking his Trelegy as prescribed and monitors his SpO2 at home. At rest he is averaging an SpO2 between 92-94% but desaturates to the high 70's with any exertion and not on oxygen. He denies recent fevers, chills, chest pain, abdominal pain, nausea, vomiting, dysuria, hematuria, and recent falls. He notes that his chronic BL LE swelling has been getting worse and he feels as though he has new DVT's in the BL LE as he has had similar pain in the past when diagnosed with his previous DVT's. He has also noticed clear drainage from the BL LE's which has also been getting worse. He notes that he is still taking 40 mg PO lasix daily and will take 60 mg when his swelling is worse. I spoke to him regarding code status, he is a conditional code. He does not want CPR or defibrillation. If a trial of intubation would be needed he would want that. His sons would make medical decisions for him if he could not make them himself. [place] refer to Dr. Carrillo's attestation for any changes to the treatment plan Admission Exam Per Admitting Provider Physical Exam: General:In no acute distress, morbidly obese, poor hygiene, not toxic appearing HEENT:Normocephalic, atraumatic, no scleral icterus, pupils around round, symmetrical, and reactive to light, moist mucus membranes, trachea midline, no thyromegaly Chest/Pulm:Distant breath sounds, No respiratory distress, symmetrical chest expansion, BL expiratory wheezing throughout Cardiac:RRR, no murmurs noted Abdomen:Negative for ascites and bruising, normoactive bowel sounds, soft, non-tender to palpation throughout Musculoskeletal:Symmetrical and without signs of acute trauma, upper and lower extremities with full ROM, no atrophy, spasticity, or flaccidity Extremities:Radial, dorsalis pedis, and posterior tibial pulses are intact and symmetrical,significant skin changes from chronic venous insuffieiency on the BL LE's, LLE noted to be weeping but both legs are without signs of acute infection Skin:As described above Neuro:Alert and oriented to person, place, month, year, and president, no focal defects, CN II-XII tested and intact, finger to nose test negative, no tremors noted Psych:No acute distress, calm and cooperative during the exam Principal Diagnosis Hypoxia Discharge Exam Physical Exam: morbidly obese male sitting up at side of bed eating lunch, NAD HEENT: head normocephalic, +facial hair, +thick neck, mmm, trachea midline Resp:: CTAB prolonged expiratory phase, no wheezing/crackles, on room air 93% at rest GI: +BS, obese, soft/NT : no addison MSK/Neuro: moves all extremities, no focal deficit, no slurred speech Psych: AOx3, pleasant and cooperative Skin: chronic venous insufficiency b/l LE, no erythema/tenderness Discharge Data Allergies Allergy/AdvReac Type Severity Reaction Status Date / Time shellfish derived Allergy Severe ANAPHYLAXIS Verified 12/23/21 08:57 iodine Allergy Intermediate "swells up" Verified 12/23/21 08:57 Consultations 01/19/22 13:46 ED Decision to Admit Stat Ordered Studies Chest X-Ray 01/19/22 11:12 SINGLE VIEW CHEST CLINICAL HISTORY: Dyspnea FINDINGS: An AP, portable, upright chest radiograph is compared to study dated 06/25/2019 and correlated with chest CT dated 11/29/2017. The heart is enlarged. The pulmonary vasculature is noncontrast. Emphysema and chronic interstitial thickening is similar to previous. There is bibasilar scarring/atelectasis. No airspace consolidation or large pleural effusion is identified. No pneumothorax is seen. The skeletal structures appear osteopenic. There are healed left-sided rib fractures. IMPRESSION: Cardiomegaly and emphysema with no acute cardiopulmonary abnormality identified. ACT 112: Negative or not required by law. Electronically signed by: Mark Giron M.D. 01/19/2022 11:41 AM Venous Doppler Study 01/19/22 14:48 BILATERAL LOWER EXTREMITY VENOUS DOPPLER HISTORY: Pain and swelling of the lower legs BL LE swlling, hx of DVT's while on eliquis COMPARISON STUDY: None. FINDINGS: Chronic appearing nonocclusive thrombus within the right popliteal vein. The right calf veins are suboptimally visualized secondary to subcutaneous edema. The midportion of the left common femoral vein as well as the left popliteal vein are partially compressible. No acute DVT identified. The left calf veins are suboptimally visualized secondary to subcutaneous edema. IMPRESSION: 1. No acute occlusive DVT identified. 2. Findings suggestive of chronic nonocclusive thrombi of the bilateral lower legs as above. ACT 112: Negative or not required by law. Electronically signed by: Shaun Escobar M.D. 01/19/2022 4:11 PM 01/20/22 ECHOCARDIOGRAM Compared with 10/24/2017 study, no significant change. The study was technically difficult. The left ventricle is normal in structure and function. Ejection fraction 60-65%. Mild concentric LVH. Grade I diastolic dysfunction (abnormal relaxation pattern). The right ventricle is normal in size and function. No significant valvular disease on very technically limited doppler. Hospital Course (1) Hypoxia: Apparently hypoxic at PCP office. Per patient, has concentrator at home and to be using oxygen with ambulation however insurance issues and DOES NOT have a portable tank. Fine at room air but with exertion reported to drop to 70s. Patient has a long history of multiple lung conditions including previous tobacco use, mixed restrictive/obstructive lung disease, obesity hypoventilation syndrome, and DEWEY supposed to be on CPAP 93% on RA at rest, but endorses significant shortness of breath with exertion, worsened over past years. To be wearing CPAP, but hasn't in many years. Venous Doppler negative for acute DVT, remains on Eliquis. No pleuretic type pain to suggest PE ECHO unchanged from study 2018, no wma, normal EF, grade I diastolic dysfunction. BNP 10 Continue Trelegy inhaler -- confirmed patient is taking this. On lasix 40mg daily, takes 60mg at times as needed. Also encouraged low salt diet, fluid restriction -- reportedly drinking gallon of tea at a time (restricted intake in hospital setting) --> discussed and Cr stable w/ 60mg daily dose inpatient and switched to torsemide, but 30mg PO daily for better absorption and weight gain over last two years. --> Will have repeat labs for next week to ensure kidney function remains stable on dose Rec'd outpt pulm follow up and PFTs and encouraged outpt polysom, arranged in February per patient. 2 step WITHOUT need for O2 w/ ambulation as discussed with respiratory. Patient reported that was the most activity he has done in past several weeks, also suspect aspect of deconditioning playing a role in SOB w/ exertion (2) Mixed restrictive and obstructive lung disease: Stable on RA at rest Breath treatments. O2 and pulm hygiene as explained in hypoxia section (3) Factor V Leiden: Has previously been on lovenox, warfarin, and xarelto Failed lovenox treatment, had a reaction (hives) to xarelto, and is unsure why he was taken off the warfarin Currently on Eliquis, continued (4) Venous stasis: Patient with history of BL chronic venous stasis Continued lasix and prn Percocet for pain --> changed to torsemide 30mg daily to help w/ edema/better gut absorption. Decrease fluid intake at home, watch/limit salt intake F/u PCP and repeat labs to ensure stable kidney function early next week (5) BPH (benign prostatic hyperplasia): -Continued flomax (6) GERD (gastroesophageal reflux disease): -Continued PPI (7) DEWEY on CPAP: -HS CPAP ordered--> HAS NOT BEEN USING FOR YEARS, NEEDS NEW SLEEP STUDY ABOVE -- per patient, has appt for repeat in February Total Time Total Time Spent Total Time Spent (In Minutes): 45 Discharge Plan Discharge Items Patient Disposition: Home - Self-Care Reason For Visit: HYPOXIA Discharge Diagnosis: Hypoxia Goals: You have been hospitalized for an acute medical problem. During your stay at [facility], we have made an effort to correct the problem that brought you to the hospital while keeping you as comfortable as possible. Medications were used to bring your condition under control and your discharge instructions will include directions for any medications you should take after leaving the hospital. Please make sure you see your Primary Care Provider as part of your follow up plan. Activity: As commented below Non-emergency contact: Primary Care Provider and Payroll Machine Operator Call non-emergency contact if: you have any medication questions, your symptoms worsen and you have a fever Follow-up/Referrals: Mark Rea PA-C [Hospitalist] - 01/26/22 9:30 am (THIS APPOINTMENT WILL BE AT THE [facility]) Enid Hill MD [Primary Care Provider] - 01/28/22 8:30 am (THIS APPOINTMENT WILL BE WITH DR SRIVASTAVA AT THE [facility] OFFICE) Diet: Heart Healthy Fluids: 2000ml (8 cups) Ambulatory Orders: Basic Metabolic Panel (Routine) Timeframe: [id number] Location: Determined by Patient Ordered By: Tri Gold Addtl Attending Provider Instructions: You have been hospitalized for hypoxia (low oxygen saturations). You have remained stable on room air at rest. Imaging of the chest did not note any pneumonia. Ultrasound of the legs were without acute blood clots. Ultrasound of your heart was performed, which did not show any significant changes since prior imaging in 2018. We discussed changing your diuretics from lasix to torsemide 30mg (1.5 tablets daily) to help with edema/weight gain as you were given 60mg lasix for the past two days in the hospital and kidney function has remained stable. This typically is better absorbed and you may notice improvements with this switch. We will have repeat labs in the system to monitor kidney function early next week. You should continue a low salt diet and monitor your weights at home. Please limit fluid intake to less than 2L daily to prevent weight gain/increased shortness of breath. As discussed, it is strongly encouraged to continue your follow up sleep study in February as this will help with a lot of symptoms as well. We have repeated a test to see about oxygen with ambulation prior to discharge and this DID NOT show any need of oxygen with ambulation. We have arranged for follow up with Mark Rea as requested for 01/26 and hopefully this will be at the [place] location to ease travel. You should have repeat pulmonary function testing. Please continue your usual inhalers as prescribed at home. Please follow up with your primary care provider in the next 7-10 days to monitor your progress after discharge. Please return to the ER with any increased shortness of breath, chest pain, fever, or for any other symptoms concerning for you. It has been a pleasure being a part of the medical team providing for you while you have been in the hospital. Take care! Pending Studies at Discharge: No Stand-Alone Forms: My [facility] Vdolg, Smoking Cessation Medications and DC Order Prescriptions: New torsemide 20 mg tablet 30 mg PO DAILY 30 Days Qty: 45 0RF Continued atorvastatin 40 mg Tablet 40 mg PO QAM Qty: 0 omeprazole 40 mg Capsule,Delayed Release(Dr/Ec) 40 mg PO QAM Qty: 0 tadalafil 5 mg Tablet 5 mg PO QAM Qty: 0 Eliquis 5 mg Tablet 5 mg PO BID Qty: 0 aspirin 325 mg Tablet 1 tab PO QAM Qty: 0 (DME) Oxygen Home Liters Per Minute See Dose Instructions .ROUTE .MEDSUPPLY Qty: 1 0RF Dose Instruction: As directed Rx Instructions: patient to use Oxygen at 2lpm through his CPAP at night (DME) Portable Oxygen Misc See Rx Instructions .ROUTE .MEDSUPPLY Qty: 1 0RF Rx Instructions: 2-4 L/min via NC with exertion to maintain Sa)2 between 88%-92%.. LOS 99 years. DX COPD with hypoxia. Maintain SaO2 88-92%. Needs Portable concentrator tolterodine [Detrol LA] 2 mg capsule,extended release 24hr 2 mg PO QAM Qty: 0 Trelegy Ellipta 200-62.5-25 mcg blister with device 1 inh inhalation DAILY Qty: 1 5RF tamsulosin [Flomax] 0.4 mg capsule 0.4 mg PO QPM hydrocodone-acetaminophen 10-325 mg Tablet 1 tab PO Q6H PRN (Reason: Pain) spironolactone 25 mg Tablet 25 mg PO DAILY Discontinued furosemide 40 mg Tablet 60 mg PO DAILY Discharge Orders: Discharge Order (Routine); Ordered 01/20/22 Ordered By: Tri Burgos/Other Patient Handouts: Understanding Leg Vein Problems, ED Shortness of Breath (Dyspnea) Admission Data Admit Date/Time: 01/19/22 14:01 Attending Provider: Tenisha Lowe Admit Provider: Dieter Carrillo Primary Care Provider: Enid Hill Other Providers: Dieter Carrillo Other Interventions: Discharge Summary Assessment (RN) Last Done: 01/20/22 13:58 Supervising Physician Co-Signing Physician Notes PA Supervision Note: I personally saw and examined the patient. I verified all ferrara points and agree with JOSEY Gold with the following exceptions and/or additions: S-Feeling better, not as much GARCIA. Passed a 2 step walk test. Reports he drinks at least a gallon of iced tea daily and is not sure if he'll be able to restrict himself at home. Wants to lose weight but has trouble with dieting. Also tells me he is stopping at [employer] for food on the way home. Is aware of low sodium diet recommendation. O- Vitals reviewed Gen: [AAOx3, NAD, obese] HEENT: [anicteric sclerae, EOMI] CV: [RRR no mgr nl S1S2] Pulm: [CTAB no wcr] Abd: [+BS soft NT ND no masses or hernias] Ext: [3+ woddy edema of legs bilat with chronic venous stasis changes and left anterior leg with seeping fluid, no erythema] Skin: [no rashes, warm/dry] Neuro: [full strength throughout] A/P-56 yo male here with dyspnea and hypoxia with exertion Likely related to acute on chronic HFpEF, OHS/restrictive lung disease, and COPD advised fluid restriction, sodium restriction, change lasix to torsemide 30mg daily follow renal function as outpt f/u with PFTs encouraged weight loss Coding Level of Care Code 33082 OBS Care - Discharge Diagnoses Hypoxia R09.02 Mixed restrictive and obstructive lung disease J43.9; J98.4 Factor V Leiden D68.51 Venous stasis I87.8 BPH (benign prostatic hyperplasia) N40.0 GERD (gastroesophageal reflux disease) K21.9 DEWEY on CPAP G47.33; Z99.89
[2022-01-21] MEDS ORDERED: TORSEMIDE 10 MG TAB PO SCH (09:00)
--- NOTE | 2022-02-03 10:20 | Coding Query ---
A supporting diagnosis is required for the test/procedure performed on this patient in order for us to be reimbursed by the patient's insurance. Please provide a supporting diagnosis for the following test/procedure listed below next to the test name along with your signature. *If there is no additional diagnosis for this patient that would support the following test/procedure please document that below next to the test/procedure. Test(s)/Procedure(s) that require a supporting diagnosis: * 59666 VENOUS DOPPLER LOWER EXT D68.22 Factor V Leiden R22.43 Leg swelling Evaluation for DOAC Failure Provider Signature: _Dieter Carrillo IV, MD Date: 02/10/22 Thank you Reginald Grigsby [facility] Information Management Once completed, please kindly fax back to [phone] For questions please call [phone] ALEXANDRE
== END 2022-01-20 14:25 | disposition home or self-care (01) ==
LOC: ED 09:59 → 2W 09:59 → SUATTDRO 14:01 → 2W 15:21

== ENCOUNTER 2024-02-03 11:43 | Inpatient (IN) ==
[2024-02-03] MEDS: METOPROLOL TARTRATE 1 MG/ML VIAL IV ONE (12:11)
[2024-02-03] MEDS: METOPROLOL TARTRATE 1 MG/ML VIAL IV STA ×2 (12:32→12:59)
[2024-02-03 12:41] LABS: Basophils # (auto) 0.07 K/uL (0.00-0.20); Eosinophils # (auto) 0.03 K/uL (0.00-0.50); Eosinophils % (auto) 0.4 %; Hematocrit (blood only) 47.9 % (42.0-52.0); Hemoglobin 15.4 g/dl (14.0-18.0); Immature Granulocytes # (auto) 0.07 K/uL (0.01-0.20); Lymphocytes # (auto) 0.74 K/uL (1.20-3.40); Lymphocytes % (auto) 10.6 %; Mean Corpuscular Hemoglobin 29.7 pg (25.0-34.0); Mean Corpuscular Hgb Conc 32.2 g/dL (32.0-36.0); Mean Corpuscular Volume 92.3 fL (80.0-100.0); Monocytes # (auto) 0.41 K/uL (0.11-0.59); Monocytes % (auto) 5.9 %; Neutrophils # (auto) 5.67 K/uL (1.40-6.50); Neutrophils % (auto) 81.1 %; Platelet Count 233 K/uL (130-400); RDW Coefficient of Variation 14.6 % (11.5-14.5); RDW Standard Deviation 49.2 fL (36.4-46.3); Red Blood Count 5.19 M/uL (4.70-6.10); White Blood Count 6.99 K/ul (4.8-10.8)
[2024-02-03 12:58] LABS: Albumin Globulin Ratio 1.2 (0.9-2); BUN Creatinine Ratio 9.8 (10-20); Bilirubin,Total 2.6 mg/dl (0.2-1.0); Creatinine Clr Calc Pharmacy 143.5 ml/min; Globulin 3.4 gm/dl (2.5-4.0); Magnesium 1.8 mg/dl (1.7-2.4); Potassium 3.8 mmol/L (3.5-5.1); Total Protein 7.4 gm/dl (6.0-8.3)
[2024-02-03 13:03] LABS: Troponin I High Sensitivity 28.2 pg/ml (0-20)
--- NOTE | 2024-02-03 13:13 | XRay Report ---
XR chest 1V portable HISTORY: 58 years-old Male Dysrhythmia COMPARISON: Chest CT 09/26/2023 TECHNIQUE: AP view the chest FINDINGS: Cardiac silhouette is enlarged. Emphysema with chronic interstitial coarsening. No pneumothorax, pleu ral effusion or overt pulmonary edema. Linear right midlung atelectasis versus scarring. IMPRESSION: Emphysema without acute process. ACT 112: Negative or not required by law. The above report was generated using voice recognition software. It may contain grammatical, syntax o r spelling errors. Electronically signed by: Shaun Escobar M.D. 02/03/2024 1:12 PM
[2024-02-03 13:14] LABS: INR 1.3 (0.9-1.1); Partial Thromboplastin Time 28 Seconds (21-31); Prothrombin Time 13.6 Seconds (9.0-12.0)
[2024-02-03] MEDS: dilTIAZem HCL 125 MG in DEXTROSE 5% 100 ML IV SCH (13:47)
[2024-02-03] MEDS: dilTIAZem HCl 5 MG/ML 5 ML VIAL IV STA (13:47)
[2024-02-03 14:35] LABS: Appearance Urine Clear (Clear); Bacteria Urine Automated None Seen (None Seen); Bilirubin Urine 2+ (Negative); Blood Urine Negative (Negative); Color Urine Dark Yellow; Epithelial Cell Urine Auto 0-2 /hpf (0-2); Glucose Urine UA Negative (Negative); Hyaline Casts Urine Present /lpf (None Presnt); Ketones Urine Trace (Negative); Leukocyte Esterase Urine 1+ (Negative); Mucus Urine Present (None Prsent); Nitrite Urine Positive (Negative); Protein Urine 3+ (Negative); Specific Gravity Urine 1.026 (1.000-1.030); Urobilinogen Urine Positive (Negative); WBC Urine Automated 0-5 /hpf (0-5); pH Urine 5.5 (4.5-7.5)
[2024-02-03 14:35] LABS: Bilirubin Direct 0.7 mg/dl (0-0.2); C Reactive Protein 1.95 mg/dl (0-0.5)
--- NOTE | 2024-02-03 14:46 | Ultrasound Report ---
ABDOMINAL ULTRASOUND, RIGHT UPPER QUADRANT HISTORY: Acute right upper quadrant abdominal pain with elevated LFTs CP, rapid atrial fib, elevated bili. COMPARISON: CTA 10/03/2023 FINDINGS: Pancreas: The pancreas demonstrates a normal echotexture. Liver: Heterogeneity with mildly increased echogenicity. Subtle marginal nodularity. No discrete mass . Small volume of abdominal ascites. Gallbladder: Contracted with mild wall thickening. Negative sonographic Rivera sign. No gallstones. CBD: 8 mm. Right kidney: No hydronephrosis. IMPRESSION: 1. Hepatic steatosis with findings suggestive of early cirrhosis. 2. Trace perihepatic ascites. 3. Contracted gallbladder. ACT 112: Negative or not required by law. Electronically signed by: Shaun Escobar M.D. 02/03/2024 2:44 PM
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
[2024-02-03] MEDS: diphenhydrAMINE 50 MG/ML VIAL IV ONE (15:15)
[2024-02-03] MEDS: methylPREDNISolone 125 MG/2 ML VIAL IV STA (15:15)
[2024-02-03] MEDS: OPTIRAY 320 125ml IV ONE (15:52)
--- NOTE | 2024-02-03 16:15 | CT Scan Report ---
CT angio chest PE protocol CT DOSE: 1075.96 mGy.cm HISTORY: 58 years-old Male with SOB. Acute shortness of breath TECHNIQUE: Multiple CTA images of the chest were obtained after the intravenous administration of 120 ml Optiray. Coronal and sagittal MIPS were obtained from the axial data set and were submitted for review. All measurements were obtained according to NASCET criteria. A dose lowering technique was u tilized adhering to the principles of ALARA. COMPARISON: Chest CT 09/26/2023 FINDINGS: CTA: Moderate cardiomegaly. No pericardial effusion. Coronary artery calcifications. Atherosclerosis of th e thoracic aorta without aneurysm. Dilation of the main pulmonary artery measuring up to 3.8 cm sugge stive of pulmonary arterial hypertension. No central pulmonary emboli identified. The segmental and s ubsegmental branches are not well evaluated secondary to respiratory motion artifact. CT CHEST: Small hypodense thyroid nodules.r mediastinal and hilar lymphadenopathy with hilar lymph nodes measur ing up to 1.7 cm the right hilum on image 162. These have increased in size from prior. Small right s ided pleural effusion.. Left pleural effusion. No pneumothorax. Moderate pulmonary emphysema. Intralo bular septal thickening. Bibasilar mucous plugging with right lower lobe predominant linear consolida tion. No suspicious pulmonary nodule is identified. Hepatomegaly with probable hepatic steatosis. Unremarkable soft tissues. Bridging osteophytes noted t hroughout the spine. No acute fracture identified. IMPRESSION: 1. Cardiomegaly without central pulmonary emboli identified. 2. Interstitial pulmonary edema with small right and trace left pleural effusions. 3. Right basilar predominant consolidation favors atelectasis. Pneumonia considered less likely. 4. Mediastinal and hilar lymphadenopathy is new from the October 03, 2023 exam. 5. Pulmonary emphysema. ACT 112: Negative or not required by law. The above report was generated using voice recognition software. It may contain grammatical, syntax o r spelling errors. Electronically signed by: Shaun Escobar M.D. 02/03/2024 4:13 PM
[2024-02-03] MEDS ORDERED: ONDANSETRON INJ 2 MG/ML 2 ML VIAL IV PRN (16:30)
[2024-02-03] MEDS ORDERED: POLYETHYLENE (MIRALAX) 17 GM PACK PO PRN (16:30)
--- OUTSIDE RECORDS SUMMARY | 2024-02-03 16:30 | External Medical Summary | Continuity of Care Document ---
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 Phone Enid Hill Primary Care Physician [phone] [id number] Date(s): 10/03/23 - 10/03/23 [facility] [address], [address] [place] [address] [phone] Encounter Diagnosis AAA (abdominal aortic aneurysm, ruptured)(Discharge Diagnosis) - 10/03/23 Discharge Disposition: Home or Self Care Attending Physician: MD Emily, Yamil Lott Referring Physician: MD Hill Amy L Allergies, Adverse Reactions, Alerts Substance Criticality Severity Reaction Reaction Severity Status iodine facial swelling Acti ve Immunizations Given and Recorded Vaccine Date Status Refusal Reason zoster vaccine, inactivated 03/31/23 Given zoster vaccine, inactivated 11/12/22 Given influenza virus vaccine, inactivated 11/12/22 Give n influenza virus vaccine, inactivated 10/10/19 Give n influenza virus vaccine, inactivated 10/15/13 Give n pneumococcal 23-valent vaccine 01/15/20 Given pneumococcal 13-valent vaccine 1 12/12/17 Recorded tetanus toxoids-diphtheria, Td (Adult) 2 03/11/15 Recorded 1Result Comment: 2020-01-15: Historical information-source unspecified 2Result Comment: 2020-01-15: Historical information-source unspecified Medications acetaminophen-hydrocodone 325 mg-10 mg oral tablet Start: 09/28/23 12:15:00 PM EDT, 1 tab, PO, q6h, Disp# 120 tab, Refills: 0, Note to Pharmacy: 30 daysupply for chronic condition; worsening/uncontrolled pain. Dx: G62.9; I87.009. Ongoing therapy., PRN: as needed for pain, Pharmacy: [id number] Start Date: 09/28/23 Stop Date: 10/28/23 Status: Ordered aspirin Start: 02/27/15 2:43:00 PM EST, 325 mg =, PO, Daily Start Date: 02/27/15 Status: Ordered Bactrim DS 800 mg-160 mg oral tablet Start: 05/24/23 4:17:00 PM EDT, 1 tab, PO, bid, Disp# 20 tab, Refills: 0, Pharmacy: [id number] Start Date: 05/24/23 Status: Ordered Eliquis 5 mg oral tablet Start: 10/03/23 4:29:00 PM EDT, 1 tab, PO, bid, Disp# 180 tab, X 90 day, Refills: 3, Stop: 09/27/24 4:29:00 PM EDT, Pharmacy: [facility]. Start Date: 10/03/23 Stop Date: 09/27/24 Status: Ordered furosemide 40 mg oral tablet Start: 02/08/23 10:40:00 AM EST, 2 tab, PO, Daily, Disp# 135 tab, Refills: 1, Pharmacy: [id number] Start Date: 02/08/23 Status: Ordered Lotrisone 1%-0.05% topical cream Start: 01/15/20 12:38:00 PM EST, 1 appl, topical, bid, Disp# 45 g, Refills: 1, Pharmacy: [id number] Start Date: 01/15/20 Status: Ordered MetFORMIN (Eqv-Glucophage XR) 500 mg oral tablet, extended release Start: 03/31/23 2:35:00 PM EST, 1 tab, PO, Daily, Disp# 90 tab, Refills: 3, Pharmacy: [id number] Start Date: 03/31/23 Stop Date: 03/25/24 Status: Ordered omeprazole 40 mg oral delayed release capsule Start: 11/02/22 6:57:00 PM EDT, See Instructions, Disp# 90 cap, Refills: 1, Take 1 capsule by mouth once daily, Pharmacy: [id number] Start Date: 11/02/22 Status: Ordered Ozempic (1 mg dose) 4 mg/3 mL subQ pen Start: 10/03/23 4:21:00 PM EDT, 1 mg =, subQ, q7days, Disp# 3 mL, Refills: 11, Pharmacy: [facility] Start Date: 10/03/23 Stop Date: 09/27/24 Status: Ordered pravastatin 20 mg oral tablet 1 tab, PO, Daily, TAKE 1 TABLET BY MOUTH EVERY DAY AT BEDTIME Start Date: 10/04/23 Status: Ordered tamsulosin 0.4 mg oral capsule Start: 04/28/22 8:27:00 PM EDT, See Instructions, Disp# 90 cap, Refills: 1, Take 1 capsule by mouth once daily, Pharmacy: [id number] Start Date: 04/28/22 Status: Ordered Trelegy Ellipta inhalation powder INHALE 1 PUFF ONCE DAILY Start Date: 11/28/19 Status: Ordered triamcinolone 0.1% topical ointment Start: 03/16/21 2:39:00 PM EST, 1 appl, topical, bid, Disp# 60 g, Refills: 5, apply a thin film to bilateral lower shins, Pharmacy: [id number] Start Date: 03/16/21 Stop Date: 06/08/21 Status: Ordered valsartan 80 mg oral tablet Start: 10/03/23 1:50:00 PM EDT, 1 tab, PO, Daily, Disp# 100 tab, Refills: 3, Pharmacy: [facility] Start Date: 10/03/23 Status: Ordered Problem List Condition Confirmation Course Effective Dates Status H ealth Status Informant Iliac aneurysm Confirmed Active Long-term use of aspirin therapy Confirmed Active BPH with obstruction/lower urinary tract symptoms Confirmed Active Candidal dermatitis Confirmed Active Chronic dyspnea Confirmed Active Chronic respiratory failure with hypoxia Confirmed Active Chronic obstructive pulmonary disease (COPD) Confirmed Active Chronic pain syndrome Confirmed Active Excessive daytime sleepiness Confirmed Active Controlled substance agreement signed Confirmed Active Factor V Leiden 1 Confirmed Active GERD (gastroesophageal reflux disease) Confirmed Active Hx of pulmonary embolus Confirmed Active Head pain cephalgia Confirmed Active S/P aneurysm repair Confirmed Active History of endovascular stent graft for abdominal aortic aneurysm (AAA) Confirmed Active History of recurrent deep vein thrombosis (DVT) Confirmed Active S/p AAA (abdominal aortic aneurysm) repair Confirmed Active IGT (impaired glucose tolerance) Confirmed Active Erectile dysfunction Confirmed Active Lymphedema of both lower extremities Confirmed Active Lung nodule 2 Confirmed Active Type 2 diabetes mellitus with peripheral neuropathy Confirmed Active Polyneuropathy Confirmed Active Post-thrombotic syndrome Confirmed Active Prostatism Confirmed Active AAA (abdominal aortic aneurysm, ruptured) Confirmed Active Class 3 severe obesity with serious comorbidity and body mass index (BMI) of 50.0 to 59.9 in adult Confirmed Active Severe sleep apnea 3 Confirmed 07/19/16 Active Venous stasis dermatitis Confirmed Active Weight disorder Confirmed Active 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 LDCT in August 2022 (follows with [facility] pulerica) 3AHI = 59.9 Diagnosis Diagnosis Type Effective Dates Health Status Cl inical Service Informant AAA (abdominal aortic aneurysm, ruptured) Discharge Diagnosis 10/03/23 Procedures Procedure Date Related Diagnosis Body Site Status Foot X-ray 1 10/01/22 Completed Foot X-ray 2 10/01/[address] of lungs 3 08/23/22 Completed ECHO TRANSTHORACIC 4 01/20/22 Comp leted Doppler ultrasonography of b ilateral lower extremity blood vessels 5 01/19/[address] of abdomen and pelvis wit h intravenous contrast 6 01/06/22 Completed Endovascular repair of aneur ysm of right iliac artery, with embolization of internal iliac artery 10/03/19 Complet ed 6-minute walk test 7 10/18/18 Comp leted Bronchoscopy 10/05/18 Completed Upper GI endoscopy 8 03/11/[address] angiography 9 12/07/16 Complete d CXR - Chest X-ray 10 12/07/16 Comp leted Full sleep study 11 07/19/16 Compl eted Ultrasound scan of pelvis an d lower extremity 12 06/12/16 Completed IVC - Insertion of inferior vena caval filter 06/2016 Completed Chest x-ray 13 11/28/14 Completed Colonoscopy 14 02/27/[address] of abdomen and pelvis 11/09/[address] of abdomen and pelvis 09/03/13 Completed Emergent PEVAR 08/07/13 Completed Bronchoscopy 15 Completed Tonsillectomy planned Com pleted 1IMPRESSION No radiographic evidence of osteomyelitis. If clinical concern remains, MRI is a more sensitive modality 2IMPRESSION 1 No fractures within the right foot No evidence for acute osteomyelitis 2. 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 3 Mild posterior calcaneal spurring. 3Stable,benign nodules. Stable emphysematous changes. Coronary artery clacifications: Moderate. 4Compared with 10/24/2017 study, no significant change. The study was technically difficult. The left ventricle is normal in structure and function. Ejection Fraction = 60-65% There is mild concentric left ventricular hypertrophy. Grade I diastolic dysfunction, (abnormal relaxation pattern). The right ventricle is normal in size and function. No significant valvular disease on very techinically limited Doppler. 5BILATERAL LOWER EXTREMITY VENOUS DOPPLER HISTORY: Pain and swelling of the lower legs BL LE swlling, hx of DVT's while on eliquis COMPARISON STUDY: None. FINDINGS: Chronic appearing nonocclusive thrombus within the right popliteal vein. The right calf veins are suboptimally visualized secondary to subcutaneous edema. The midportion of the left common femoral vein as well as the left popliteal vein are partially compressible. No acute DVT identified.The left calf veins are suboptimally visualized secondary to subcutaneous edema. IMPRESSION: 1. No acute occlusive DVT identified. 2. Findings suggestive of chronic nonocclusive thrombi of the bilateral lower legs as above. ACT 112: Negative or not required by law. 6CT angio abd pelvis wo/w con CLINICAL HISTORY: POST ENDO AAA TECHNIQUE: Multidetector row helical CT of the abdomen and pelvis was performed, following intravenous administration of iodinated contrast. No oral contrast was administered. Automated dose loweringtechniques and/or adjustment according to patient size were utilized for this exam. Coronal and sagittal reformations were obtained. MIP and 3D volume rendered reconstructions were obtained. CT DOSE: 5171.24 mGy.cm Comparison: Comparison is made to CT abdomen pelvis 03/05/2019 FINDINGS: Lower chest: Bibasilar atelectasis versus scarring is seen. Liver: Hepatic steatosis is noted. Gallbladder and biliary tree: No calcified gallstones. Normal caliber wall. No intra- or extrahepatic biliary ductal dilation. Pancreas: Unremarkable, no focal lesions. Spleen: Unremarkable. Adrenals: Unremarkable. Kidneys and ureters: Unremarkable. Bladder: Diffuse homogeneous wall thickening is seen. Reproductive organs: Prostatomegaly is seen. Bowel: Unremarkable appearance of the bowel. The appendix is normal. Lymph nodes Retroperitoneal: Unremarkable. Pelvic: Bilateral pelvic lymph nodes are seen measuring up to 11 mm. Mesenteric: Unremarkable. Peritoneum: Normal. Abdominal wall: Unremarkable. Bones: Unremarkable. CT angiogram: Patient is status post abdominal aortic graft. There is an aneurysm measuring 51 mm in diameter, similar to prior exam. There is occlusive thrombus of a right internal iliac artery despite a stent graft. 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 The origins of the celiac axis, superior mesenteric, inferior mesenteric and bilateral renal arteries are patent. IMPRESSION: 1. Status post aortobiiliac stent graft repair of an abdominal aortic aneurysm without evidence of endoleak. The aneurysm sac is unchanged. 2. Redemonstration of occluded stent in the right internal iliac artery and internal iliac artery aneurysm. 3. Hepatic steatosis. 4. Mild adenopathy in the pelvis is unchanged. ACT 112: Negative or not required by law. 7walked 506 ft w/out O2 sat decreasing 8Mild Schatzki ring. Dilated. Z-line regular, 45cm from the incisors. Normal stomach. Normal examined duodenum. No specimens collected. 91. No acute aortic pathology or evidence of pumonary thrombembolic disease. 2. Trace right pleural effusion with tree in bud nodularity and bronchial wall thickening of the right lung suggests bronchitis with bronchiolitis. Mild bronchial wall thickening is also seen on the left. 3. Mild centrilobular emphysema. 101. Pulmonary vascular congestion without overt pulmonary edema. 2. Suspected trace right pleural effusion. 11Novasom Impression: 1. Severe obstructive sleep apnea with frequent hypopneas and apneas 12Non occlusive thrombus is present in thee left femoral vein and popliteal vein. Thrombus is age indeterminate. No evidence of DVT in the right lower extremity. These findings were discussed with Dr. Brito. 13Impression: No focal areas of consolidation to suggest peneumonia. No significant change in mild reticulonodular interstitial thickening since prior exams. 14Impression: The descending colon, transverse colon, ascending colon, cecum and appendiceal orifice are normal. The examined portion of the ileum was normal. Four 5 to 8 mm polyps at the recto-sigmoid colon. resected and retrieved. Non bleeding hemorrhoids. Anal fissure found on perianal exam One 7 mm polyp at 65 cm proximal to the anus. Resected and retrieved. 15done for chronic mucopurulent bronchitis. Social History Social History Type Response Tobacco Current every day sm oker, Cigarettes, 10 per day. Smoking Status Former Smoker, quit > 1 yr Sex Male Sex Representation Male (finding) Patient Care team information Care Team Personnel Name: MD Liz, Enid Iniguez Position: Physician - Family Med Member Role: Primary Care Provider Address: [address] [place] [address] Name: OVI Jackson Lynn Position: Physician Hris Analyst Exempt - Vasc Surg Member Role: Lifetime Relationship Address: [address] [place] [address] Name: MD Diaz Eugene J Position: Physician - Vascular Surg Member Role: Lifetime Relationship Address: [address] [place] [address] Name: Baljinder Ac Joy Position: Pharmacist Schedule II Member Role: Pharmacy - Lifetime Care Team Related Persons Name: SIMÓN LOZANO Name: JUNIOR Brinda LOZANO
--- OUTSIDE RECORDS SUMMARY | 2024-02-03 16:30 | External Medical Summary | Continuity of Care Document ---
Author Name Unknown Organization [facility] [address] Address [address] [place] [place], [place] [id number] Care Team Providers Care Mortgage Loan Underwriter Name Role Phone Enid Hill Primary Care Physician [phone] [id number] Date(s): 10/03/23 - 10/03/23 [facility] [address], [address] [place] [address] [phone] Encounter Diagnosis Factor V Leiden(Discharge Diagnosis) - 10/04/23 History of recurrent deep vein thrombosis (DVT)(Discharge Diagnosis) - 10/04/23 Type 2 diabetes mellitus with peripheral neuropathy(Discharge Diagnosis) - 10/04/23 Polyneuropathy(Discharge Diagnosis) - 10/04/23 Lymphedema of both lower extremities(Discharge Diagnosis) - 10/04/23 Class 3 severe obesity with serious comorbidity and body mass index (BMI) of 50.0 to 59.9 in adult(Discharge Diagnosis) - 10/04/23 Chest pressure(Discharge Diagnosis) - 10/04/23 Discharge Disposition: Home or Self Care Attending Physician: OVI Bassett Jessica A Referring Physician: OVI Bassett Jessica A Allergies, Adverse Reactions, Alerts Substance Criticality Severity Reaction Reaction Severity Status iodine facial swelling Acti ve Assessment and Plan Extracted from: Title:4 month f/u Author:OVI Bassett Jessic a A Date:10/03/23 1.Type 2 diabetes mellitus with peripheral neuropathy Type 2 diabetes with chronicperipheralneuropathyis stable. Goal A1c is <7%. A1c results fromApr2023 reviewed andwas 6.5%. He did inquire about increasing the dose of his Ozempic to facilitate further weight loss. We will have himdiscontinue Ozempic 0.5 mg injected weekly and increase to Ozempic 1 mg injected once weekly. Encouraged totry to get physical activity as toleratedand limit the intake of simple sugars/carbohydrates. Will have him follow-up again in 3 to 4 months and updated labs were ordered to have completed prior to this appointment. To continue on metformin XR 500 mgonce daily as well. 2.History of recurrent deep vein thrombosis (DVT) Patient has a historyof recurrent DVT and factor V Leiden. He will continueon chronic anticoagulation with apixaban 5 mg twice daily. 3.Factor V Leiden As above in #2. 4.Polyneuropathy Peripheral polyneuropathy is chronic andsymptoms at time remain uncontrolled. Most days pain is stable with current regimenof hydrocodone/APAP 10/325 mg, 1 tab p.o. 4 times daily as needed. A 1 month prescription typically lasts him 3 months as some days he does not use any medicationand has been taking this sparingly. Had previously failed multipleother nonnarcotic options. Also, he had chronically used amitriptyline, which he recently discontinued due to financialreasons and will consider restarting in the future. Overall pain is noworse off of the medication, so it is unclear if this washelpful. Encouraged daily foot checks. 5.Lymphedema of both lower extremities Lymphedema bilateral lower extremities is chronic. He may continue to usecompression wraps, elevate legs anddiuretics as needed. He is aware that diuretics are typically not helpful in advanced stages of lymphedema. He had previously gone to lymphedema therapy, but did not see dramatic benefit. 6.Class 3 severe obesity with serious comorbidity and body mass index (BMI) of 50.0 to 59.9 in adult Class III severe obesitywith serious comorbidities has improved. Patient is down 16 kg since the time of our last appointment since starting Ozempic. 7.Chest pressure Chest pressure is acute to subacute and started in the last 3 weeks. This was already addressed at his cardiology appointment. He had an EKG performed and will begoing to the lab shortly for a stat troponinordered by cardiology. Discussed that even if workup is negative would considerpharmacologicstress test. Advised to contact the office if symptoms or not improving. He may seek urgent care at the ER if they would worsen and has any associatedshortness of breath, nausea, jaw pain, neck painor new symptoms. He agreed Time spent on pre-visit plannin minute son chart review Face to face time spent w/ patient: 24 minutes Time spent documenting pertinent clinical information into the EMR: 18 minutes Total time: 44 minutes Immunizations Given and Recorded Vaccine Date Status [...] therapy., PRN: as needed for pain, Pharmacy: [id number] Start Date: 09/28/23 Stop Date: 10/28/23 Status: Ordered aspirin Start: 02/27/15 2:43:00 PM EST, 325 mg =, PO, Daily Start Date: 02/27/15 Status: Ordered Bactrim DS 800 mg-160 mg oral tablet Start: 05/24/23 4:17:00 PM EDT, 1 tab, PO, bid, Disp# 20 tab, Refills: 0, Pharmacy: [id number] Start Date: 05/24/23 Status: Ordered Eliquis 5 mg oral tablet Start: 10/03/23 4:29:00 PM EDT, 1 tab, PO, bid, Disp# 180 tab, X 90 day, Refills: 3, Stop: 09/27/24 4:29:00 PM EDT, Pharmacy: [facility] Start Date: 10/03/23 Stop Date: 09/27/24 Status: Ordered furosemide 40 mg oral tablet Start: 02/08/23 10:40:00 AM EST, 2 tab, PO, Daily, Disp# 135 tab, Refills: 1, Pharmacy: [facility] [id number] Start Date: 02/08/23 Status: Ordered Lotrisone 1%-0.05% topical cream Start: 01/15/20 12:38:00 PM EST, 1 appl, topical, bid, Disp# 45 g, Refills: 1, Pharmacy: [place] [facility] [id number] Start Date: 01/15/20 Status: Ordered MetFORMIN (Eqv-Glucophage XR) 500 mg oral tablet, extended release Start: 03/31/23 2:35:00 PM EST, 1 tab, PO, Daily, Disp# 90 tab, Refills: 3, Pharmacy: [place] [id number] Start Date: 03/31/23 Stop Date: 03/25/24 Status: Ordered omeprazole 40 mg oral delayed release capsule Start: 11/02/22 6:57:00 PM EDT, See Instructions, Disp# 90 cap, Refills: 1, Take 1 capsule by mouth once daily, Pharmacy: [place] [id number] Start Date: 11/02/22 Status: Ordered Ozempic (1 mg dose) 4 mg/3 mL subQ pen Start: 10/03/23 4:21:00 PM EDT, 1 mg =, subQ, q7days, Disp# 3 mL, Refills: 11, Pharmacy: [facility] Start Date: 10/03/23 Stop Date: 09/27/24 Status: Ordered pravastatin 20 mg oral tablet 1 tab, PO, Daily, TAKE 1 TABLET BY MOUTH EVERY DAY AT BEDTIME Start Date: 10/04/23 Status: Ordered tamsulosin 0.4 mg oral capsule Start: 04/28/22 8:27:00 PM EDT, See Instructions, Disp# 90 cap, Refills: 1, Take 1 capsule by mouth once daily, Pharmacy: [place] [id number] Start Date: 04/28/22 Status: Ordered Trelegy Ellipta inhalation powder INHALE 1 PUFF ONCE DAILY Start Date: 11/28/19 Status: Ordered triamcinolone 0.1% topical ointment Start: 03/16/21 2:39:00 PM EST, 1 appl, topical, bid, Disp# 60 g, Refills: 5, apply a thin film to bilateral lower shins, Pharmacy: [id number] Start Date: 03/16/21 Stop Date: 06/08/21 Status: Ordered valsartan 80 mg oral tablet Start: 10/03/23 1:50:00 PM EDT, 1 tab, PO, Daily, Disp# 100 tab, Refills: 3, Pharmacy: [facility] Start Date: 10/03/23 Status: Ordered Mental Status 10/03/23 Barriers to Learning one year None evide nt Mandatory Health Literacy Documentation Yes Health Literacy Communication Barriers N ever Primary Language Croatian Problem List Condition Confirmation Course Effective Dates [...] repeat LDCT in August 2022 (follows with MARISSA pulm) 3AHI = 59.9 Diagnosis Diagnosis Type Effective Dates Health Status Clinical Service Informant Factor V Leiden Discharge Diagnosis 10/04/23 Non-Specified Type 2 diabetes mellitus with peripheral neuropathy Discharge Diagnosis 10/04/23 Non-Specified Polyneuropathy Discharge Diagnosis 10/04/23 Non-Specified Lymphedema of both lower extremities Discharge Diagnosis 10/04/23 Non-Specified History of recurrent deep vein thrombosis (DVT) Discharge Diagnosis 10/04/23 Non-Specified Class 3 severe obesity with serious comorbidity and body mass index (BMI) of 50.0 to 59.9 in adult Discharge Diagnosis 10/04/23 Non-Specified Chest pressure Discharge Diagnosis 10/04/23 Non-Specified Procedures Procedure Date Related Diagnosis Body Site [...] yr Sex Male Sex Representation Male (finding) [facility] Note * OVI Bassett, Brenda Carrasco: PERFORM Event Display: [facility] Note Authored Date: [id number] Chief Complaint follow up, discuss chest pressure History of Present Illness Kvng presents for 3 to 4-month follow-up of class III severe obesity with BMIof 50, new type 2 diabetes, chronic peripheralneuropathy, chronic venous stasis dermatitisdue to venous insufficiencyand history of recurrent DVT. His primary concern today is that "I can get a pressure in my chest that can last for a couple of hours." For the last 3 weeks he has had intermittentprecordialchest discomfort that he describes as "pressure, like someone is pushing on it." The pressure can radiateinto the left shoulder, i nto his arm and can get some numbness and tingling in the left arm. The symptoms can occur both at rest and with physical activity. He most recently had chest pressure todaythat lasted for a few hours. He does have a prescription for hydrocodone/APAP and has tried taking this if pain is badand it does seem to help. Prior to our appointment today he did see bothcardiology and vascularsurgery with our groupand discussed chest pressure with cardiology. Theyperformed an EKGandare sending patient for a stat troponin. He recalls having had a stress test in the past, but has beenyears. Admits he has also been doing a lot ofcanning in the last few weeks, sowonders if pain could be frommore physical activity. Type 2 diabetes was newly diagnosedin May 2023 with an A1c of 6.5%. He had previously obtained Ozempic before becoming diabetic to assist with weight loss,but insurance stopped covering it because he did not have the diabetes diagnosis. He intentionallybinged on high sugar food and drinks toincrease his A1c into the diabetic range. He is now on Ozempic 0.5 mg injectedweeklyandper his home scales he has lostabout 35 to 40 pounds. Feels dramatically better with the weightoff. He is less short of breath, more physically activeand has not felt the need to use hissupplemental oxygen at night. Admits [place] and is pain almost $300per m ont for the Ozempic. Has chronic peripheral neuropathy that has been present for years before diabetes diagnosis, which is unchnaged. + hx of poor healing wounds; no open wounds currently as theseimproved w/ mgmt. at the [facility]. + polyuria that he attributes to diuretic use. + chest pressure as above. No hypoglycemic episodes, polydipsia, polyphagia, blurred vision, loss of vision, chest pain, SOB, palpitations, tachycardia, loss of balance or falls. Class III severe obesity w/BMI of50 has improved since starting Ozempic for DM. Weight is [id number] perour scales.Toleratingthe medication wellexceptfor poortasting burps. He has chronicperipheral edema secondary to venous insufficiencywith history of multiple DVTs. Since his last appointment cardiology did switch hisfurosemide to bumetanidethat he takes as needed, which is at least 5 days/week.Since losing weight he feels some days edema is better, but other days not.He does wears spandex knee padsover bilateral lower legs as compressionwrapsand these do make his legs feel better. Skin over lower legs are thickened, discoloredand very dry. He does lotion themmost days withskin so soft. He did purchase pneumatic compression devices as well that he uses without improvement. Peripheral neuropathy is chronicand uncontrolled. Has numbness over bilateral feet and lowerlegs.Most days he is unable to feel the bottoms of his feet. Has a constant burningsensation in both feet and lower legs as well astightness and "charley horses." If walking on uneven surfacesand at times on flat surfaces has loss of balanceand does not admit to any falls. He usesa cane occasionally, but otherwise does notgo places where he will need to walkany significant distance.He had been taking amitriptyline 50 mg nightly, but made the decision to stop the medication in the last month [facility] he has money forhis Ozempic andapixaban. Has not felt the pain is any worseoff of amitriptyline.Previously failedhigh doses of pregabalin, gabapentin and duloxetine. Pain most days of 4-5/10 when sitting, but symptoms are worse with ambulating and can reach an 8-9/10. He does have a prescription for h ydrocodone/APAP 10/325 mg, 1 tab p.o.QID that typically lasts him 3 months.Notes he only takes the medication on days he needs to leave the house or do things. Those days he will take the medication 4 times daily, butsome days does not need it at all. Unable to take NSAIDs as he [facility] with apixaban 5 mg twice daily due to history of for chronic DVTs and Factor V Leiden. Has IVC filter in place. Review of Systems ROS:All other systems negative, except HPI. Physical Exam PHQ2 Data(Data Documented on:10/03/2023 16:05) Emotional health assessment NEGATIVE General: Alert and oriented, No acute distress.Pleasant.Morbidly obese. Not visibly SOB when talking. Eye: Pupils are equal, round and reactive to light, Extraocular movements are intact, Normal conjunctiva. HENT: Normocephalic. Poor dentition. Neck: Supple, No lymphadenopathy, No thyromegaly. Respiratory: Lungs are clear to auscultation, Respirations are non-labored, Breath sounds are equal, Symmetrical chest wall expansion. Moderate to significantly diminished air exchange throughoutall lung hernandez. Cardiovascular: Normal rate, Regular rhythm, No murmur, No gallop, Good pulses equal in all extremities, Normal peripheral perfusion. +2 nonpitting edema bilaterally w/ dusky discoloration of bilateral lower legs w/ thickened skin, scaling and dryness. Abdomen: Normoactive BS x 4.Distended No tenderness, palpable masses or organomegaly. Lymphatics: No submandibular, anterior or posterior cervical adenopathy palpable. Musculoskeletal Antalgic gait. Integumentary: Warm, [place], No pallor. Neurologic: Alert, Oriented, Cranial Nerves II-XII are grossly intact. Cognition and Speech: Oriented, Speech clear and coherent, Functional cognition intact. Psychiatric: Cooperative, Appropriate mood & affect, Normal judgment, Nonsuicidal. Assessment/Plan 1.Type 2 diabetes mellitus with peripheral neuropathy Type 2 diabetes with chronicperipheralneuropathyis stable. Goal A1c is <7%. [facility] He did inquire about increasing the dose of his Ozempic to facilitate further weight loss. We will have himdiscontinue Ozempic 0.5 mg injected weeklyand increase to Ozempic 1 mg injected once weekly. Encouraged totry to get physical activity as toleratedand limit the intake of simple sugars/carbohydrates. Will have him follow-up again in 3 to 4 months and updated labs were ordered to have completed prior to this appointment. To continue on metformin XR 500 mgonce daily as well. 2.History of recurrent deep vein thrombosis (DVT) Patient has a historyof recurrent DVT and factor V Leiden. He will continueon chronic anticoagulation with apixaban 5 mg twice daily. 3.Factor V Leiden As above in #2. 4.Polyneuropathy Peripheral polyneuropathy is chronic andsymptoms at time remain uncontrolled. Most days pain is stable with current regimenof hydrocodone/APAP 10/325 mg, 1 tab p.o. 4 times daily as needed.A 1 month prescription typically lasts him 3 months as some days he does not use any medicationand has been taking this sparingly. Had previously failed multipleother nonnarcotic options. Also, he had chronically used amitriptyline, which he recently discontinued due to financialreasons and will consider restarting in the future. Overall pain is noworse off of the medication, so it is unclear if this washelpful. Encouraged daily foot checks. 5.Lymphedema of both lower extremities Lymphedema bilateral lower extremities is chronic. He may continue to usecompression wraps, elevate legs anddiuretics as needed. He is aware that diuretics are typically not helpful in advanced stages of lymphedema. He had previously gone to lymphedema therapy, but did not see dramatic benefit. 6.Class 3 severe obesity with serious comorbidity and body mass index (BMI) of 50.0 to 59.9 in adult Class III severe obesitywith serious comorbidities has improved. Patient is down 16 kg since the time of our last appointment since starting Ozempic. 7.Chest pressure Chest pressure is acute to subacute and started in the last 3 weeks. This was already addressedat his cardiology appointment. He had an EKG performed and will begoing to the lab shortly for a stat troponinordered by cardiology. Discussed that even if workup is negative would considerp harmacologicstress test. Advised to contact the office if symptoms or not improving. He may seek urgent care at the ER if they would worsen and has any associatedshortness of breath, nausea, jaw pain, neck painor new symptoms. He agreed Time spent on pre-visit plannin minute son chart review Face to face time spent w/ patient: 24 minutes Time spent documenting pertinent clinical information into the EMR: 18 minutes Total time: 44 minutes Problem List/Past Medical History Ongoing AAA (abdominal aortic aneurysm, ruptured) BPH with obstruction/lower urinary tract symptoms Candidal dermatitis Chronic dyspnea Chronic obstructive pulmonary disease (COPD) Chronic pain syndrome Chronic respiratory failure with hypoxia Class 3 severe obesity with serious comorbidity and body mass index (BMI) of 50.0 to 59.9 in adult Controlled substance agreement signed Erectile dysfunction Excessive daytime sleepiness Factor V Leiden GERD (gastroesophageal reflux disease) Head pain cephalgia History of endovascular stent graft for abdominal aortic aneurysm (AAA) History of recurrent deep vein thrombosis (DVT) Hx of pulmonary embolus IGT (impaired glucose tolerance) Iliac aneurysm Long-term use of aspirin therapy Lung nodule Lymphedema of both lower extremities Polyneuropathy Post-thrombotic syndrome Prostatism S/p AAA (abdominal aortic aneurysm) repair S/P aneurysm repair Severe sleep apnea Type 2 diabetes mellitus with peripheral neuropathy Venous stasis dermatitis Weight disorder Resolved DVT (deep venous thrombosis) Tobacco user Tobacco user Procedure/Surgical History Foot X-ray| Service Date: 10/01/2022Foot X-ray| Service Date: 3CT of lungs| Service Date: 08/23/2022ECHO TRANSTHORACIC| Service Date: 01/20/2022oppler ultrasonography of bilateral lower extremity blood vessels| Service Date: 2CT of abdomen and pelvis with intravenous contrast| Service Date: 01/06/2022Endovascular repair of aneurysm of right iliac artery, with embolization of internal iliac artery| Service Date: 10/03/201955206-iwlppu walk test| Service Date: 10/18/2018Bronchoscopy| Service Date: 10/05/2018Upper GI endoscopy| Service Date: 03/11/2017CT angiography| Service Date: 12/07/2016CXR - Chest X-ray| Service Date: 12/07/2016Full sleep study| Service Date: 07/19/2016Ultrasound scan of pelvis and lower extremity| Service Date: 06/12/2016IVC - Insertion of inferior vena caval filter| Service Date: 06/2016Chest x-ray| Service Date: 11/28/2014Colonoscopy| Service Date: 02/27/2014CT of abdomen and pelvis| Service Date: 11/09/2013CT of abdomen and pelvis| Service Date: 09/03/2013Emergent PEVAR| Service Date: 08/07/2013Tonsillectomy plannedBronchoscopy Medications acetaminophen-hydrocodone(acetaminophen-hydrocodone 325 mg-10 mg oral tablet), 1 tab, PO, q6h, PRN apixaban(Eliquis 5 mg oral tablet), 5 mg= 1 tab, PO, bid, 3 refills aspirin, 325 mg, PO, Daily betamethasone-clotrimazole topical(Lotrisone 1%-0.05% topical cream), 1 appl, topical, bid, 1 refills fluticasone/umeclidinium/vilanterol(Trelegy Ellipta inhalation powder) furosemide(furosemide 40 mg oral tablet), 80 mg= 2 tab, PO, Daily metFORMIN(MetFORMIN (Eqv-Glucophage XR) 500 mg oral tablet, extended release), 500 mg= 1 tab, PO, Daily, 3 refills omeprazole(omeprazole 40 mg oral delayed release capsule), See Instructions pravastatin(pravastatin 20 mg oral tablet), 20 mg= 1 tab, PO, Daily semaglutide(Ozempic (1 mg dose) 4 mg/3 mL subQ pen), 1 mg, subQ, q7days, 11 refills sulfamethoxazole-trimethoprim(Bactrim DS 800 mg-160 mg oral tablet), 1 tab, PO, bid tamSULOsin(tamsulosin 0.4 mg oral capsule), See Instructions, 1 refills triamcinolone topical(triamcinolone 0.1% topical ointment), 1 appl, topical, bid, 5 refills valsartan(valsartan 80 mg oral tablet), 80 mg= 1 tab, PO, Daily, 3 refills Allergies iodinefacial swelling Social History Smoking Status Former Smoker, quit > 1 yr Alcohol Use:Current Type:Liquor Frequency:3-5 times per week - Comments: 3 - 5ths of Basilio Restrepo or Araceli Comfort a week to help control his pain Substance Abuse - Denies Substance Abuse Tobacco - High Risk Use:Current every day smoker Type:Cigarettes Tobacco use per day:10 Family History Aortic aneurysm: Mother, Sister and MGM. Cancer: Father. Diabetes Mellitus: Mother. Health Status Family Member(s) Immunizations Vaccine Date Status zoster vaccine, inactivated 03/31/2023 Given influenza virus vaccine, inactivated 11/12/2022 Given zoster vaccine, inactivated 11/12/2022 Given pneumococcal 23-valent vaccine 01/15/2020 Given influenza virus vaccine, inactivated 10/10/2019 Given pneumococcal 13-valent vaccine 12/12/2017 Recorded Comments : 2020-01-15: Historical information-source unspecified tetanus toxoids-diphtheria, Td (Adult) 03/11/2015 Recorded Comments : 2020-01-15: Historical information-source unspecified influenza virus vaccine, inactivated 10/15/2013 Given Recommendations Health Maintenance Pending(in the next year) OverDue Adult Influenza Vaccine due08/07/23and every 1year Due Adult COVID-19 Vaccination due10/04/23Unknown Frequency Adult Social Determinants of Health Screening due10/04/23Unknown Frequency Diabetic Eye Exam due10/04/23Unknown Frequency Due In Future Body Mass Index not due until11/13/23and every 366day Colorectal Cancer Screening not due until02/25/24and every 10year Diabetes Management A1c not due until05/23/24and every 366day Satisfied(in the past 1 year) Satisfied Adult Influenza Vaccine on11/12/22.Satisfied by JOSTIN Bettencourt Andrew E Diabetes Management A1c on05/23/23.Satisfied by [employer], [id number] Shingles Vaccine on11/12/22.Satisfied by JOSTIN Bettencourt Andrew E Patient Care team information Care Team Personnel Name: MD Liz, Enid Iniguez Position: Physician - Family Med Member Role: Primary Care Provider Address: [address] [place] [address] [place] Name: OVI Jackson Lynn Position: Physician Steam Cleaner Exempt - Vasc Surg Member Role: Lifetime Relationship Address: [address] [place] [address] [place] Name: MD Emily, Yamil Lott Position: Physician - Vascular Surg Member Role: Lifetime Relationship Address: [address] [place] [address] [place] Name: Baljinder Ac Joy Position: Pharmacist Schedule II Member Role: Pharmacy - Lifetime Care Team Related Persons Name: SIMÓN LOZANO Name: JUNIOR Brinda LOZANO
--- OUTSIDE RECORDS SUMMARY | 2024-02-03 16:30 | External Medical Summary | Continuity of Care Document ---
Author Name Unknown Organization [facility] Address [address] [place] [address] [id number] Care Team Providers Care Conservation Coordinator Name Role Phone Enid Hill Primary Care Physician [id number] Encounter [facility] [id number] Date(s): 10/03/23 - 10/03/23 [facility] [address], [address] [place] [address] [phone] Encounter Diagnosis HTN (hypertension)(Discharge Diagnosis) - 10/03/23 Tachycardia(Discharge Diagnosis) - 10/03/23 Chronic dyspnea(Discharge Diagnosis) - 10/03/23 Chronic obstructive pulmonary disease (COPD)(Discharge Diagnosis) - 10/03/23 IGT (impaired glucose tolerance)(Discharge Diagnosis) - 10/03/23 S/p AAA (abdominal aortic aneurysm) repair(Discharge Diagnosis) - 10/03/23 Severe sleep apnea(Discharge Diagnosis) - 10/03/23 Chest discomfort(Discharge Diagnosis) - 10/03/23 Edema(Discharge Diagnosis) - 10/03/23 Obesity(Discharge Diagnosis) - 10/03/23 Discharge Disposition: Home or Self Care Attending Physician: PRINCE Conley Sarah A Allergies, Adverse Reactions, Alerts Substance Criticality Severity Reaction Reaction Severity Status iodine facial swelling Acti ve Assessment and Plan Extracted from: Title:Cardiology Office Visit Note Author:PRINCE Lizarraga rd, Sarah A Date:10/03/23 Impression:1. 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 Echo with normal LVF, abnormal septal motion with respiration consistent with obesity hypoventilation syndrome, no significant valvular abnormalities, unable to estimate pulmonary pressures 3. Diastolic CHF 4. Cardiac catheterization, 08/27/19, with minimal epicardial coronary artery disease, right atrial pressure of 11, mean PA pressure of 27, a left ventricular end-diastolic pressure of 18. His resting aortic sat was 93%. This cardiac output by Manuel was 2.4. 5. Former tobacco user 6. Severe DEWEY with AHI of 119 unable to tolerate CPAP, wears O2 at night 7. History of multiple DVTs and Factor V Leiden Mr. Flores's chest pain is most likely musculoskeletal. EKG in the office today showed NSR with mildinferior T wave inversions, which is new. I think it's less likely thatthis is connected to his chest pain given that his pain resolves with putting his arm up over his head and that the discomfort has been coming and going for three weeks, and that his dyspnea is actually improved,but I will have him get a stattroponin at [facility] today.His case and ekg were reviewed with Dr. Reyes who is in agreement. He will have a bmp as he is on diuretic. His lower extremity edema is improving with weight loss. He was encouraged to continue working on weight loss. I did recommend he resume his statin give his risk factors for heart attack and stroke and hld. He has discontinued due to financial issues. His blood pressure is borderline. He was congratulated on the diet changes he has made to reduce sodium in his diet. He will return to the clinic in 6 months. Immunizations Given and Recorded Vaccine Date Status [...] therapy., PRN: as needed for pain, Pharmacy: [id number] Start Date: 09/28/23 Stop Date: 10/28/23 Status: Ordered aspirin Start: 02/27/15 2:43:00 PM EST, 325 mg =, PO, Daily Start Date: 02/27/15 Status: Ordered Bactrim DS 800 mg-160 mg oral tablet Start: 05/24/23 4:17:00 PM EDT, 1 tab, PO, bid, Disp# 20 tab, Refills: 0, Pharmacy: [facility] [id number] Start Date: 05/24/23 Status: Ordered Eliquis 5 mg oral tablet Start: 10/03/23 4:29:00 PM EDT, 1 tab, PO, bid, Disp# 180 tab, X 90 day, Refills: 3, Stop: 09/27/24 4:29:00 PM EDT, Pharmacy: [facility]. Start Date: 10/03/23 Stop Date: 09/27/24 Status: Ordered furosemide 40 mg oral tablet Start: 02/08/23 10:40:00 AM EST, 2 tab, PO, Daily, Disp# 135 tab, Refills: 1, Pharmacy: [facility] [id number] Start Date: 02/08/23 Status: Ordered Lotrisone 1%-0.05% topical cream Start: 01/15/20 12:38:00 PM EST, 1 appl, topical, bid, Disp# 45 g, Refills: 1, Pharmacy: [id number] Start Date: 01/15/20 Status: Ordered MetFORMIN (Eqv-Glucophage XR) 500 mg oral tablet, extended release Start: 03/31/23 2:35:00 PM EST, 1 tab, PO, Daily, Disp# 90 tab, Refills: 3, Pharmacy: [id number] Start Date: 03/31/23 Stop Date: 03/25/24 Status: Ordered omeprazole 40 mg oral delayed release capsule Start: 11/02/22 6:57:00 PM EDT, See Instructions, Disp# 90 cap, Refills: 1, Take 1 capsule by mouth once daily, Pharmacy: [facility] [id number] Start Date: 11/02/22 Status: Ordered Ozempic (1 mg dose) 4 mg/3 mL subQ pen Start: 10/03/23 4:21:00 PM EDT, 1 mg =, subQ, q7days, Disp# 3 mL, Refills: 11, Pharmacy: [facility] Start Date: 10/03/23 Stop Date: 09/27/24 Status: Ordered pravastatin 20 mg oral tablet 1 tab, PO, Daily, TAKE 1 TABLET BY MOUTH EVERY DAY AT BEDTIME Start Date: 10/04/23 Status: Ordered tamsulosin 0.4 mg oral capsule Start: 04/28/22 8:27:00 PM EDT, See Instructions, Disp# 90 cap, Refills: 1, Take 1 capsule by mouth once daily, Pharmacy: [id number] Start Date: 04/28/22 Status: Ordered Trelegy Ellipta inhalation powder INHALE 1 PUFF ONCE DAILY Start Date: 11/28/19 Status: Ordered triamcinolone 0.1% topical ointment Start: 03/16/21 2:39:00 PM EST, 1 appl, topical, bid, Disp# 60 g, Refills: 5, apply a thin film to bilateral lower shins, Pharmacy: [id number] Start Date: 03/16/21 Stop Date: 06/08/21 Status: Ordered valsartan 80 mg oral tablet Start: 10/03/23 1:50:00 PM EDT, 1 tab, PO, Daily, Disp# 100 tab, Refills: 3, Pharmacy: [facility] Start Date: 10/03/23 Status: Ordered Mental Status 10/03/23 Barriers to Learning one year None evide nt Mandatory Health Literacy Documentation Yes Health Literacy Communication Barriers N ever Primary Language Ecuadorean Problem List Condition Confirmation Course Effective Dates [...] repeat LDCT in August 2022 (follows with [facility] pul[facility]) 3AHI = 59.9 Diagnosis Diagnosis Type Effective Dates Health Status Clinical Service Informant HTN (hypertension) Discharge Diagnosis 10/03/23 Non-Specified Chest discomfort Discharge Diagnosis 10/03/23 Non-Specified Tachycardia Discharge Diagnosis 10/03/23 Non-Specified Chronic dyspnea Discharge Diagnosis 10/03/23 Non-Specified S/p AAA (abdominal aortic aneurysm) repair Discharge Diagnosis 10/03/23 Non-Specified Severe sleep apnea Discharge Diagnosis 10/03/23 Non-Specified Chronic obstructive pulmonary disease (COPD) Discharge Diagnosis 10/03/23 Non-Specified IGT (impaired glucose tolerance) Discharge Diagnosis 10/03/23 Non-Specified Edema Discharge Diagnosis 10/03/23 Non-Specified Obesity Discharge Diagnosis 10/03/23 Non-Specified Procedures Procedure Date Related Diagnosis Body [...] and retrieved. 15done for chronic mucopurulent bronchitis. Vital Signs Most recent to oldest [Reference Range]: 1 Patient Weight 162 kg (10/03/23 1:09 PM) Heart Rate 104 bpm (10/03/23 1:09 PM) Respiratory Rate 18 br/min (10/03/23 1:09 PM) Blood Pressure 138/80mmHg (10/03/23 1:09 PM) Social History Social History Type Response Tobacco Current every day sm oker, Cigarettes, 10 per day. Smoking Status Former Smoker, quit > 1 yr Sex Male Sex Representation Male (finding) Radiology * Contributor_system, MUSE01: VERIFY, PERFORM Event Display: EKG Authored Date: Please click on link to see image. Cardiology Outpatient Note * PRINCE Conley, Anneliese Carrasco: MODIFY, MODIFY, MODIFY, MODIFY, MODIFY, MODIFY, PERFORM, MODIFY, MODIFY Event Display: Cardiology Outpt Note Authored Date: [id number] Primary Care Provider MD Liz, Enid Iniguez Chief Complaint Ongoing shortness of breath about the same , edema is worse , chest pressure started a couple weeks ago ,denies chest pain/ tightness, flutters, heart racing, palpitations, no resent ERvisits- uses CPAP every night History of Present Illness Mr. Flores presents for follow up of his history of htn, lower extremity edema, and obesity hypoventilation on CPAP. He stopped taking his pravastatin and valsartan in order to afford his Ozempic. He has lost 14 kgs since his summer appointment on it. He has been cutting back on salt. He is miriam a lot this summer and reduced the amount of salt heis putting in his canned vegetables and doing things like making no-salt vinegar pickles. He notes that he is less sob with his weight loss. He does not feel like he needs his O2 at night so has not been wearing it. He is wearing a cpap atnight but he takes it off in his sleep. He has been feeling pressure in his chest in his left breast thatcomes and goes over the last few weeks - he's not sure if it's because he has been canningso much which requires repetitive armmovement. His fingers sometimes go a little numb. It feels better when he puts his left arm up overhis head. Today for instance it started during his CT scan and has persisted in the four hours since. Review of Systems All other systems reviewed and negative except as discussed in the HPI Physical Exam Vitals & Measurements HR:104(Monitored) RR:18 BP:138/80 SpO2:97% WT:162.000kg(Dosing) WT:162kg Physical Examination General: Alert and oriented, No acute distress. Respiratory: Lungs are clear to auscultation, Respirations are non-labored. Cardiovascular: Normal rate, Regular rhythm, No murmur, No edema, no carotid bruits to auscultation bilaterally. Integumentary: Warm, Dry, Brusly Neurologic: Alert, Oriented. Cognition and Speech: Speech clear and coherent. Psychiatric: Cooperative, Appropriate mood & affect. Assessment/Plan Impression:1. COPD with chronic hypoxic respiratory failure - class III/B with FEV1 of 37% of predicted and FEV1/FVC VC of 67% of predicted 2. Echo with normal LVF, abnormal septal motion with respiration consistent with obesity hypoventilation syndrome, no significant valvular abnormalities, unable to estimate pulmonary pressures 3. Diastolic CHF 4. Cardiac catheterization, 08/27/19, with minimal epicardial coronary artery disease, right atrial pressure of 11, mean PA pressure of 27, a left ventricular end-diastolic pressure of 18. His resting aortic sat was 93%. This cardiac output by Manuel was 2.4. 5. Former tobacco user 6. Severe DEWEY with AHI of 119 unable to tolerate CPAP, wears O2 at night 7. History of multiple DVTs and Factor V Leiden Mr. Flores's chest pain is most likely musculoskeletal. EKG in the office today showed NSR with mildinferior T wave inversions, which is new. I think it's less likely thatthis is connected to his chest pain given that his pain resolves with putting his arm up over his head and that the discomfort has been coming and going for three weeks, and that his dyspnea is actually improved,but I will have him get a stattroponin at [facility] today.His case and ekg were reviewed with Dr. Reyes who is in agreement. He will have a bmp as he is on diuretic. His lower extremity edema is improving with weight loss. He was encouraged to continue working on weight loss. I did recommend he resume his statin give his risk factors for heart attack and stroke and hld. He has discontinued due to financial issues. His blood pressure is borderline. He was congratulated on the diet changes he has made to reduce sodium in his diet. He will return to the clinic in 6 months. Problem List/Past Medical History Ongoing AAA (abdominal aortic aneurysm, ruptured) BPH with obstruction/lower urinary tract symptoms Candidal dermatitis Chronic dyspnea Chronic obstructive pulmonary disease (COPD) Chronic pain syndrome Chronic respiratory failure with hypoxia Controlled substance agreement signed Erectile dysfunction Excessive daytime sleepiness Factor V Leiden GERD (gastroesophageal reflux disease) Head pain cephalgia History of endovascular stent graft for abdominal aortic aneurysm (AAA) History of recurrent deep vein thrombosis (DVT) Hx of pulmonary embolus IGT (impaired glucose tolerance) Iliac aneurysm Long-term use of aspirin therapy Lung nodule Lymphedema of both lower extremities Polyneuropathy Post-thrombotic syndrome Prediabetes Prostatism S/p AAA (abdominal aortic aneurysm) repair S/P aneurysm repair Severe sleep apnea Tobacco user Venous stasis dermatitis Weight disorder Resolved DVT (deep venous thrombosis) Tobacco user Procedure/Surgical History Foot X-ray| Service Date: 10/01/2022Foot X-ray| Service Date: 3CT of lungs| Service Date: 08/23/2022ECHO TRANSTHORACIC| Service Date: 01/20/2022oppler ultrasonography of bilateral lower extremity blood vessels| Service Date: 2CT of abdomen and pelvis with intravenous contrast| Service Date: 01/06/2022Endovascular repair of aneurysm of right iliac artery, with embolization of internal iliac artery| Service Date: [id number] walk test| Service Date: 10/18/2018Bronchoscopy| Service Date: [...] oral tablet), 1 tab, PO, q6h, PRN amitriptyline(amitriptyline 50 mg oral tablet), 50 mg= 1 tab, PO, qhs, 3 refills apixaban(Eliquis 5 mg oral tablet), See Instructions, 1 refills aspirin, 325 mg, PO, Daily betamethasone-clotrimazole [...] oral tablet), 20 mg= 1 tab, PO, qhs, 3 refills semaglutide(Ozempic (0.25 mg or 0.5 mg dose) 2 mg/3 mL subQ pen), See Instructions, subQ, q7days, 5refills sulfamethoxazole-trimethoprim(Bactrim DS 800 mg-160 mg oral tablet), [...] - 5ths of Basilio Restrepo or Araceli Rao a week to help control his pain Substance Abuse - Denies Substance Abuse Tobacco - High Risk Use:Current every day smoker Type:Cigarettes Tobacco use per day:10 Family History Aortic aneurysm: Mother, Sister and MGM. Cancer: Father. Diabetes Mellitus: Mother. Health Status Family Member(s) Electronic Signature on File CC: Enid Hill MD [address] [place] [address] Electronically Reviewed/Signed by: PRINCE Rodríguez Author Signature Dt/Tm:2023 05:01 PM [facility] [employer] [facility] Patient Care team information Care Team Personnel Name: MD Liz, Enid Iniguez Position: Physician - Family Med Member Role: Primary Care Provider Address: [address] [place] [address] [place] Name: OVI Jackson Lynn Position: Physician Social Sciences Department Chair Exempt - Vasc Surg Member Role: Lifetime Relationship Address: [address] [place] [address] [place] Name: MD Emily, Yamil Lott Position: Physician - Vascular Surg Member Role: Lifetime Relationship Address: [address] [place] [address] Name: Baljinder Ac Joy Position: Pharmacist Schedule II Member Role: Pharmacy - Lifetime Care Team Related Persons Name: SIMÓN FLORES Name: JUNIOR Brinda FLORES"
[2024-02-03] MEDS: STAT IV Infusion **Titration per Protocol STA (16:53)
[2024-02-03] MEDS: FUROSEMIDE 40 MG/4 ML VIAL IV STA (17:27)
[2024-02-03] MEDS ORDERED: INFLUENZA VACC TS2024-25(6m+)/PF (IIV3) 0.5mL Syr IM ONE (17:43)
[2024-02-03] MEDS ORDERED: diphenhydrAMINE 50 MG/ML VIAL IV ONE (18:45)
[2024-02-03] MEDS: TAMSULOSIN HCL 0.4 MG CAP PO SCH (19:54)
[2024-02-03] MEDS: ACETAMINOPHEN 325 MG TAB PO PRN (19:54)
[2024-02-03] MEDS: APIXABAN 5 MG TABLET PO SCH (19:54)
[2024-02-04] MEDS: MAGNESIUM SULFATE / D5W 1 GM/100 ML BAG IV SCH (04:02)
[2024-02-04] MEDS: POTASSIUM CHLORIDE CRTAB 20 MEQ TABCR PO STA (04:07)
[2024-02-04 08:36] LABS: Hematocrit (blood only) 47.3 % (42.0-52.0); Mean Corpuscular Hemoglobin 29.9 pg (25.0-34.0); Mean Corpuscular Hgb Conc 31.7 g/dL (32.0-36.0); Mean Corpuscular Volume 94.2 fL (80.0-100.0); Mean Platelet Volume 10.9 fL (9.4-12.4); Platelet Count 234 K/uL (130-400); RDW Coefficient of Variation 14.6 % (11.5-14.5); RDW Standard Deviation 50.9 fL (36.4-46.3); Red Blood Count 5.02 M/uL (4.70-6.10); White Blood Count 9.16 K/ul (4.8-10.8)
[2024-02-04 08:40] LABS: Estimated Average Glucose 134 mg/dl; Hemoglobin A1C 6.3 % (4.5-5.6)
[2024-02-04 08:57] LABS: Albumin Globulin Ratio 1.1 (0.9-2); Albumin Level 3.7 gm/dl (3.4-5.0); BUN Creatinine Ratio 13.4 (10-20); Calcium 9.3 mg/dl (8.6-10.3); Creatinine Clr Calc Pharmacy 132.9 ml/min; Globulin 3.3 gm/dl (2.5-4.0); Potassium 4.6 mmol/L (3.5-5.1)
[2024-02-04] MEDS: ATORVASTATIN 40 MG TAB PO SCH (09:05)
[2024-02-04] MEDS: ASPIRIN 325 MG ECTAB PO SCH (09:05)
[2024-02-04] MEDS: UMECLIDINIUM/VILANTEROL 62.5/25MCG 7 PUFFS/INHALER INH SCH (09:05)
[2024-02-04] MEDS: PANTOprazole 40 MG TAB PO SCH (09:05)
[2024-02-04] MEDS: FLUTICASONE FUROATE 200MCG 14 PUFFS/INHALER INH SCH (09:06)
--- NOTE | 2024-02-04 09:56 | Electrocardiogram Report ---
Test Reason : Blood Pressure : */* mmHG Vent. Rate : 162 BPM Atrial Rate : * BPM P-R Int : * ms QRS Dur : 94 ms QT Int : 310 ms P-R-T Axes : * 58 -31 degrees QTcB Int : 508 ms Atrial fibrillation with rapid ventricular response Low voltage QRS Nonspecific T wave abnormality Abnormal ECG When compared with ECG of 19-Jan-2022 11:49, Atrial fibrillation has replaced Sinus rhythm Vent. rate has increased by 77 bpm Nonspecific T wave abnormality, worse in Inferior leads Nonspecific T wave abnormality now evident in Anterolateral leads Confirmed by Sydney Herron (Stanley) on 02/04/2024 9:56:06 AM Referred By: REFERRED SELF Confirmed By: Sydney Herron
[2024-02-04] MEDS: FUROSEMIDE 40 MG/4 ML VIAL IV ONE (10:10)
--- NOTE | 2024-02-04 10:13 | Electrocardiogram Report ---
Test Reason : Blood Pressure : */* mmHG Vent. Rate : 132 BPM Atrial Rate : 127 BPM P-R Int : * ms QRS Dur : 98 ms QT Int : 340 ms P-R-T Axes : * 139 2 degrees QTcB Int : 503 ms Atrial fibrillation with rapid ventricular response Left posterior fascicular block vs limb lead reversal Abnormal ECG When compared with ECG of 03-Feb-2024 12:05, (unconfirmed) Left posterior fascicular block is now Present vs limb lead reversal please repeat to confirm correct lead placement Confirmed by Sydney Herron (Stanley) on 02/04/2024 10:12:55 AM Referred By: REFERRED SELF Confirmed By: Sydney Herron
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
[2024-02-04] MEDS: AMIODARONE 200 MG TAB PO SCH (14:33)
--- NOTE | 2024-02-04 15:44 | Hospitalist Progress Note ---
Date of Service February 04, 2024 Assessment & Plan (1) Atrial fibrillation: Plan: This is a 58 year old male with past medical history of triple A repair, PE, hypoxia, COPD, Factor V Leiden, GERD, DEWEY on CPAP who presented to the ED on 02/03/2024 with a chief complaint of shortness of breath. Baseline room air w/ portable oxygen prn. CXR: findings consistent w/ emphysema CTA: negative for PE CBC: no leukocytosis, hgb WNL BMP: electrolytes/renal function WNL BNP: 388 CRP: 1.95 Procal: <0.02 EKG: A fib RVR Troponin elevated at 28.2, repeat 25.6 s/p 2 x 40mg IV Lasix. s/p 5mg IV Metoprolol x 3 s/p 10mg IV Diltiazem Placed on Diltiazem drip by ED, stopped 02/03 Echo 02/03: LVEF 20-25%. beat to beat variability in EF due to A fib w/ RVR. severe global hypokinesis of left ventricle. septal dyskinesis. mild-moderate tricuspid regurgitation. RV systolic pressure elevated at 30-40mmhg prior Echo 2022 revealed EF of 65% Cardiology consulted, appreciate recommendations. discussed w/ Dr. Herron via phone today. Stop Diltiazem drip and start PO Amiodarone 400mg BID, monitor LFT's closely. consider cardioversion 02/05 consider adding Entresto if BP tolerates AM CBC, CMP (2) Right-sided congestive heart failure: Plan: see plan above (3) Hypoxia: Plan: see plan above. (4) Hyperbilirubinemia: Plan: Total Bilirubin on admission elevated at 2.6. Direct bili 0.7 per patient he endorses history of heavy alcohol usage but hasn't drank in ~ 10 years. Patient denies abdominal pain RUQ US performed: contracted GB and findings concerning for early cirrhosis. TB 2.0 on 02/03 AM CBC, CMP Plan Chronic conditions: HLD: statin GERD: PPI BPH: tamsulosin DVT prophylaxis: Home Eliquis dose Code status: DNR/DNI Disposition: admit to PCU Admission and Anticipated Discharge Date Admission Date: February 03, 2024 Subjective Patient seen and examined this morning. patient reports to be feeling better today. He reports improvement in his SOB. Denies any chest pain. Physical Exam Respiratory: rales at bases b/l Cardiovascular: irregular rhythm, tachycardic, b/l venous stasis Results & Data Results & Data Vital Signs (Past 12 Hours) Vital Signs Temp Pulse Resp BP Pulse Ox O2 Del Method O2 Flow Rate 02/04/24 11:30 36.8 C 121 H 20 116/88 96 Nasal Cannula 3 02/04/24 08:03 Nasal Cannula 3 02/04/24 07:56 36.7 C 82 18 120/86 97 Nasal Cannula 3 02/04/24 03:44 36.7 C 110 H 20 120/66 94 Nasal Cannula 3.0 PG Care Time/CCT Total # of Minutes Spent Total Time Spent with Patient: Total time spent is greater than 50% in coordination of care (as documented) at patient's floor/unit and/or counseling patient: Coding Level of Care Code 65154 SUB INP/OBS CARE 3/50MIN Diagnoses Atrial fibrillation, unspecified type I48.91 Atrial fibrillation type: unspecified Acute right-sided congestive heart failure I50.811 Heart failure chronicity: acute Hypoxia R09.02 Hyperbilirubinemia E80.6 (1) Atrial fibrillation Atrial fibrillation type: unspecified Qualified Code(s): I48.91 - Unspecified atrial fibrillation (2) Right-sided congestive heart failure Heart failure chronicity: acute Qualified Code(s): I50.811 - Acute right heart failure
[2024-02-05 07:51] LABS: Hematocrit (blood only) 45.4 % (42.0-52.0); Hemoglobin 14.8 g/dl (14.0-18.0); Mean Corpuscular Hemoglobin 30.1 pg (25.0-34.0); Mean Corpuscular Hgb Conc 32.6 g/dL (32.0-36.0); Mean Corpuscular Volume 92.3 fL (80.0-100.0); Platelet Count 245 K/uL (130-400); RDW Coefficient of Variation 14.5 % (11.5-14.5); RDW Standard Deviation 48.7 fL (36.4-46.3); Red Blood Count 4.92 M/uL (4.70-6.10); White Blood Count 9.52 K/ul (4.8-10.8)
[2024-02-05 08:00] LABS: Albumin Globulin Ratio 1.2 (0.9-2); Albumin Level 3.7 gm/dl (3.4-5.0); BUN Creatinine Ratio 21.2 (10-20); Bilirubin,Total 1.9 mg/dl (0.2-1.0); Creatinine Clr Calc Pharmacy 151.8 ml/min; Globulin 3.2 gm/dl (2.5-4.0); Potassium 3.7 mmol/L (3.5-5.1); Total Protein 6.9 gm/dl (6.0-8.3)
[2024-02-05] MEDS: METOPROLOL TARTRATE 1 MG/ML VIAL IV STA (08:15)
[2024-02-05] MEDS: ASPIRIN 81 MG ECTAB PO SCH (09:38)
[2024-02-05] MEDS: FUROSEMIDE 40 MG/4 ML VIAL IV ONE (09:38)
--- NOTE | 2024-02-05 10:27 | Cardiology Progress Note ---
Date of Service February 05, 2024 Assessment & Plan (1) HFrEF (heart failure with reduced ejection fraction): (2) Atrial fibrillation with rapid ventricular response: (3) Right-sided congestive heart failure: (4) Recurrent deep vein thrombosis (DVT): (5) Factor V deficiency: Plan Prior to admit was only taking Eliquis QD Started po amiodarone for now to help with maintaining NSR, however, this is not the best choice of meds, given underlying pulm issues. He needs to have further sleep med eval, but he only wants to see PS doctors. If he is intolerance to CPAP/bipap, he may be a candidate for Inspire. His ECHO shows severe LV dysfunction, presumably due to the Afib with RVR--will cont diuresis and consider adding ENTRESTO as long as BP tolerates. need to follow his LFTs given abnormal baseline as well as possible cirrhosis. Will have to postpone doing the CV for now given he has not been taking AC appropriately. Will aim for HR control for now. change IV over to po cardizem in am for rate control use PO metoprolol as well for HR control. Im not sure if he is willing to do Assure/Lifevest. Will discuss tomorrow Admission and Anticipated Discharge Date Admission Date: February 03, 2024 Subjective Patient seen and examined this morning. patient reports to be feeling better today. He reports improvement in his SOB. Denies any chest pain. further history obtained. He has only been taking his Eliquis once daily. prior plan of doing CV will have to be delayed, particularly in light of his history of Factor V leiden. HR seems better controlled since diuresed 700cc after given the am dose of Lasix IV Review of Systems Review of Systems: All systems reviewed & are unremarkable except as noted in HPI & below Physical Exam Physical Exam: SOB with some activity Respiratory: rales at base Cardiovascular: irregular Skin: LE edema unchanged significant and severe stasis dermatitis Results & Data Vital Signs (Past 12 Hours) Vital Signs Temp Pulse Pulse Resp BP Pulse Ox O2 Del Method 02/05/24 10:00 102 H 02/05/24 08:15 Room Air 02/05/24 07:40 112 H 02/05/24 07:29 36.8 C 130 H 18 118/84 90 Nasal Cannula 02/05/24 03:59 36.5 C 74 20 108/56 L 92 Room Air 02/04/24 23:27 26.5 C L 133 H 24 123/89 95 Room Air O2 Flow Rate 02/05/24 10:00 02/05/24 08:15 02/05/24 07:40 02/05/24 07:29 3 02/05/24 03:59 02/04/24 23:27 Laboratory Results Abnormal lab results 02/05/24 Range/Units 07:10 RDW Std Deviation 48.7 H (36.4-46.3) fL BUN/Creatinine Ratio 21.2 H (10-20) Glucose 115 H (70-99(Fasting)) mg/dl Total Bilirubin 1.9 H (0.2-1.0) mg/dl Medications Administered Current Inpatient Medications Acetaminophen (Acetaminophen 325 Mg Tab) 650 mg PO Q4H PRN PRN Reason: Pain or Fever Stop: 03/04/24 16:29 Last Admin: 02/03/24 19:54 Dose: 650 mg Amiodarone HCl (Amiodarone 200 Mg Tab) 400 mg PO BIDM [facility] Stop: 03/05/24 16:59 Last Admin: 02/05/24 07:54 Dose: 400 mg Apixaban (Apixaban 5 Mg Tablet) 5 mg PO BID [facility] Stop: 02/07/24 20:59 Last Admin: 02/05/24 07:55 Dose: 5 mg Aspirin (Aspirin 81 Mg Ectab) 81 mg PO QAM [facility] Stop: 03/06/24 08:59 Last Admin: 02/05/24 09:38 Dose: 81 mg Atorvastatin Calcium (Atorvastatin 40 Mg Tab) [facility] [place] Stop: 03/05/24 08:59 Last Admin: 02/05/24 07:55 Dose: 40 mg Fluticasone Furoate (Fluticasone Furoate 200mcg 14 Puffs/Inhaler) 1 puffs INH DAILY [facility] Stop: 03/05/24 08:59 Last Admin: 02/05/24 07:54 Dose: 1 puffs Diltiazem HCl 125 mg/ Dextrose 125 mls @ 15 mls/hr IV .Q8H20M [facility]; Protocol Stop: 03/04/24 13:44 Last Admin: 02/05/24 03:54 Dose: 15 mg/hr, 15 mls/hr Ondansetron HCl (Ondansetron Inj 2 Mg/Ml 2 Ml Vial) 4 mg IV Q6H PRN PRN Reason: Nausea Stop: 03/04/24 16:29 Pantoprazole Sodium (Pantoprazole 40 Mg Tab) 40 mg PO QAM [facility] Stop: 03/05/24 08:59 Last Admin: 02/05/24 07:55 Dose: 40 mg Polyethylene Glycol (Polyethylene (Miralax) 17 Gm Pack) 17 gm PO DAILY PRN PRN Reason: Constipation Stop: 03/04/24 16:29 Tamsulosin HCl (Tamsulosin Hcl 0.4 Mg Cap) 0.4 mg PO QPM [facility] Stop: 03/04/24 20:59 Last Admin: 02/04/24 20:00 Dose: 0.4 mg Umeclidinium/Vilanterol (Umeclidinium/Vilanterol 62.5/25mcg 7 Puffs/Inhaler) 1 puffs INH DAILY [facility] Stop: 03/05/24 08:59 Last Admin: 02/05/24 07:54 Dose: 1 puffs (3) Right-sided congestive heart failure Heart failure chronicity: acute Qualified Code(s): I50.811 - Acute right heart failure
--- NOTE | 2024-02-05 15:03 | Hospitalist Progress Note ---
Date of Service February 05, 2024 Assessment & Plan (1) Atrial fibrillation: Plan: This is a 58 year old male with past medical history of triple A repair, PE, hypoxia, COPD, Factor V Leiden, GERD, DEWEY on CPAP who presented to the ED on 02/03/2024 with a chief complaint of shortness of breath. Baseline room air w/ portable oxygen prn. CXR: findings consistent w/ emphysema CTA: negative for PE Echo 02/03: LVEF 20-25%. beat to beat variability in EF due to A fib w/ RVR. severe global hypokinesis of left ventricle. septal dyskinesis. mild-moderate tricuspid regurgitation. RV systolic pressure elevated at 30-40mmhg prior Echo 2022 revealed EF of 65% CBC: no leukocytosis, hgb WNL BMP: electrolytes/renal function WNL BNP: 388 CRP: 1.95 Procal: <0.02 EKG: A fib RVR Troponin elevated at 28.2, repeat 25.6 Cardiology consulted and following Continue Amiodarone 400mg BID Lasix 60mg IV BID for diuresis Lopressor 2.5mg q6h prn for HR >120 Plan to switch to PO Diltiazem 02/05, currently still on Diltiazem drip. AM CBC, CMP (2) Right-sided congestive heart failure: Plan: see plan above (3) Hypoxia: Plan: see plan above. (4) Hyperbilirubinemia: Plan: Total Bilirubin on admission elevated at 2.6. Direct bili 0.7 per patient he endorses history of heavy alcohol usage but hasn't drank in ~ 10 years. etiology: underlying cirrhosis vs congestive hepatopathy Patient denies abdominal pain RUQ US performed: contracted GB and findings concerning for early cirrhosis. TB 1.9 on 02/04, continuing to down trend. AM CBC, CMP Plan Chronic conditions: HLD: statin GERD: PPI BPH: tamsulosin DVT prophylaxis: Home Eliquis dose Code status: DNR/DNI Disposition: admit to PCU Case discussed w/ Dr. Jin and Dr. Herron on 02/04. Admission and Anticipated Discharge Date Admission Date: February 03, 2024 Supervising Physician Co-Signing Physician Notes During face to face encounter, I obtained today's symptoms and physical examination, discussed plan of care with patient. I discussed plan of care with PABLO Nichols. I reviewed above note and agree with it except for the following: Patient admitted with a fib RVR. despite diltiazem drip and amiodarone, patients remains tachycardic. Placed on metoprolol Q6h. Subjective Patient seen and examined this morning. Patient reports at about 4 am his chest pressure and extremity numbness has returned. He was also feeling more short of breath. patient was given 2.5mg IV lopressor and re-evaluated in the afternoon. Upon re-evaluation, patient reports his chest pressure/extremity numbness is still present but may have improved slightly. He did notice a difference in his breathing and felt less short of breath. He reports after receiving the 60mg IV lasix he was urinating often. Physical Exam Constitutional: WD/WN, vitals as above Respiratory: rales at b/l bases Cardiovascular: irregularly irregular. LE edema present Psychiatric: A+Ox3, euthymic affect Results & Data Results & Data Vital Signs (Past 12 Hours) Vital Signs Temp Pulse Pulse Resp BP Pulse Ox O2 Del Method 02/05/24 14:05 109 H 02/05/24 11:25 36.8 C 111 H 18 107/71 94 Room Air 02/05/24 10:00 102 H 02/05/24 08:15 Room Air 02/05/24 07:40 112 H 02/05/24 07:29 36.8 C 130 H 18 118/84 90 Nasal Cannula 02/05/24 03:59 36.5 C 74 20 108/56 L 92 Room Air O2 Flow Rate 02/05/24 14:05 02/05/24 11:25 02/05/24 10:00 02/05/24 08:15 02/05/24 07:40 02/05/24 07:29 3 02/05/24 03:59 PG Care Time/CCT Total # of Minutes Spent Total Time Spent with Patient: Total time spent is greater than 50% in coordination of care (as documented) at patient's floor/unit and/or counseling patient: Coding Level of Care Code 62161 SUB INP/OBS CARE 3/50MIN Diagnoses Atrial fibrillation, unspecified type I48.91 Atrial fibrillation type: unspecified Acute right-sided congestive heart failure I50.811 Heart failure chronicity: acute Hypoxia R09.02 Hyperbilirubinemia E80.6 (1) Atrial fibrillation Atrial fibrillation type: unspecified Qualified Code(s): I48.91 - Unspecified atrial fibrillation (2) Right-sided congestive heart failure Heart failure chronicity: acute Qualified Code(s): I50.811 - Acute right heart failure
[2024-02-05] MEDS ORDERED: METOPROLOL TARTRATE 1 MG/ML VIAL IV PRN (16:41)
[2024-02-05] MEDS: FUROSEMIDE 40 MG/4 ML VIAL IV SCH (21:08)
[2024-02-06 07:56] LABS: Hematocrit (blood only) 43.3 % (42.0-52.0); Hemoglobin 14.2 g/dl (14.0-18.0); Mean Corpuscular Hemoglobin 29.7 pg (25.0-34.0); Mean Corpuscular Hgb Conc 32.8 g/dL (32.0-36.0); Mean Corpuscular Volume 90.6 fL (80.0-100.0); Mean Platelet Volume 11.2 fL (9.4-12.4); Platelet Count 235 K/uL (130-400); RDW Coefficient of Variation 14.2 % (11.5-14.5); RDW Standard Deviation 47.5 fL (36.4-46.3); Red Blood Count 4.78 M/uL (4.70-6.10); White Blood Count 8.42 K/ul (4.8-10.8)
[2024-02-06 08:13] LABS: BUN Creatinine Ratio 22.9 (10-20); Calcium 8.5 mg/dl (8.6-10.3); Creatinine Clr Calc Pharmacy 157.7 ml/min; Potassium 3.6 mmol/L (3.5-5.1)
--- NOTE | 2024-02-06 09:09 | Cardiology Progress Note ---
Date of Service February 06, 2024 Assessment & Plan (1) HFrEF (heart failure with reduced ejection fraction): (2) Atrial fibrillation with rapid ventricular response: (3) Right-sided congestive heart failure: (4) Recurrent deep vein thrombosis (DVT): (5) Factor V deficiency: Plan Mr. Flores continues to be dyspneic. I doubt his weight is accurate for today as he is up 4 kg from yesterday. He does note worsening swelling however. IV diuretic should be continued until creatinine bumps. We could consider sending him home with Furosix for continued outpatient diuresis. We reviewed maintaining a low sodium diet. I will have him get started on Entresto low dose today. 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 He will also need a Life Vest at discharge given his significantly reduced EF which he is agreeable too. His heart failure is likely tachycardia induced from AFib RVR. Unfortunately, he was only taking Eliquis once a day so we will have to wait 3 weeks for cardioversion now that he is taking it bid. He was started on amiodarone to help with maintaining NSR. This is not a great choice of medications given his underlying pulmonary issues but given his ventricular function, maintaining SR is paramount. Hopefully keeping him on it halfway will not be necessary. It sounds like his afib was possibly tripped off by a febrile viral illness at the beginning of December. We will need to follow his abnormal LFTs and early cirrhosis while on amiodarone as well. I will add metoprolol for rate control as well as for his systolic heart failure. Again, we'll have to watch him on this medication with his lung issues. He should see sleep medicine for further guidance on his obesity hypoventilation syndrome. Admission and Anticipated Discharge Date Admission Date: February 03, 2024 Subjective Mr. Flores is still sob with much exertion. He has not had any chest discomfort today but described feeling like someone was standing on his chest yesterday. Legs are more swollen. Review of Systems Review of Systems: All systems reviewed & are unremarkable except as noted in HPI & below Physical Exam Constitutional: WD/WN, vitals as above Respiratory: + labored breathing Auscultation: kallie gs clear to auscultation bilaterally Cardiovascular: Rate/Rhythm: + abnormal rate and + abnormal rhythm Heart Sounds: normal S1 and normal S2 Extremities: + edema (bilateral le edema ) Skin: feet dusky bilaterally Neurologic: moves all extremities and awake Psychiatric: A+Ox3, euthymic affect Results & Data Vital Signs (Past 12 Hours) Vital Signs Temp Pulse Resp BP Pulse Ox O2 Del Method O2 Flow Rate 02/06/24 07:43 36.6 C 110 H 20 129/73 92 Room Air 02/06/24 03:21 36.5 C 118 H 20 108/82 93 Room Air 02/05/24 22:59 36.7 C 96 H 20 113/72 97 Nasal Cannula 2.0 (3) Right-sided congestive heart failure Heart failure chronicity: acute Qualified Code(s): I50.811 - Acute right heart failure
[2024-02-06] MEDS: METOPROLOL TARTRATE 25 MG TAB PO SCH (09:41)
[2024-02-06] MEDS: VALSARTAN/SACUBITRIL 26/24MG TAB PO SCH (09:41)
--- NOTE | 2024-02-06 10:33 | Electrocardiogram Report ---
Test Reason : Blood Pressure : */* mmHG Vent. Rate : 103 BPM Atrial Rate : 326 BPM P-R Int : * ms QRS Dur : 104 ms QT Int : 282 ms P-R-T Axes : * 48 -48 degrees QTcB Int : 369 ms Atrial fibrillation with rapid ventricular response with premature ventricular or aberrantly conducte d complexes Nonspecific T wave abnormality Abnormal ECG When compared with ECG of 03-Feb-2024 18:07, Left posterior fascicular block is no longer Present Nonspecific T wave abnormality, worse in Anterolateral leads Confirmed by Bladimir Espinal ([id number]) on 02/06/2024 10:33:30 AM Referred By: REFERRED SELF Confirmed By: Bladimir Espinal
--- NOTE | 2024-02-06 14:49 | Hospitalist Progress Note ---
Date of Service February 06, 2024 Assessment & Plan (1) Atrial fibrillation: Plan: This is a 58 year old male with past medical history of triple A repair, PE, hypoxia, COPD, Factor V Leiden, GERD, DEWEY on CPAP who presented to the ED on 02/03/2024 with a chief complaint of shortness of breath. Baseline room air w/ portable oxygen prn. CXR: findings consistent w/ emphysema CTA: negative for PE Echo 02/03: LVEF 20-25%. beat to beat variability in EF due to A fib w/ RVR. severe global hypokinesis of left ventricle. septal dyskinesis. mild-moderate tricuspid regurgitation. RV systolic pressure elevated at 30-40mmhg prior Echo 2022 revealed EF of 65% CBC: no leukocytosis, hgb WNL BMP: electrolytes/renal function WNL BNP: 388 CRP: 1.95 Procal: <0.02 EKG: A fib RVR Troponin elevated at 28.2, repeat 25.6 Cardiology consulted and following: Continue Amiodarone 400mg BID Lasix 60mg IV BID for diuresis until bump in creatinine Diltiazem drip stopped and Metoprolol tartrate 25mg BID started 02/05 Entresto added on 02/05 Patient will have to wait 3 weeks for cardioversion since he was on incorrect dosing of Eliquis at home. Life Vest at discharge - patient agreeable. Replete electrolytes as necessary given aggressive diuresis. AM CBC, CMP, Magnesium (2) Right-sided congestive heart failure: Plan: see plan above (3) Hypoxia: Plan: see plan above. (4) Hyperbilirubinemia: Plan: Total Bilirubin on admission elevated at 2.6. Direct bili 0.7 per patient he endorses history of heavy alcohol usage but hasn't drank in ~ 10 years. etiology: underlying cirrhosis vs congestive hepatopathy RUQ US performed: contracted GB and findings concerning for early cirrhosis. TB 1.9 on 02/04, continuing to down trend. AM CBC, CMP Plan Chronic conditions: HLD: statin GERD: PPI BPH: tamsulosin DVT prophylaxis: Home Eliquis dose Code status: DNR/DNI Disposition: admit to PCU Discussed w/ cardiology 02/05. Admission and Anticipated Discharge Date Admission Date: February 03, 2024 Subjective Patient seen and examined this morning. Patient reports his chest pressure has resolved. He denies shortness of breath unless he is ambulating. He reports occasionally numbness in his extremities but notes this has improved. Physical Exam Constitutional: WD/WN, vitals as above Respiratory: lung sounds diminished at bases but clear Cardiovascular: irregularly irregular. + LE edema Psychiatric: A+Ox3, euthymic affect Results & Data Results & Data Vital Signs (Past 12 Hours) Vital Signs Temp Pulse Resp BP Pulse Ox O2 Del Method 02/06/24 11:43 36.5 C 97 H 18 110/78 92 Room Air 02/06/24 07:43 36.6 C 110 H 20 129/73 92 Room Air 02/06/24 03:21 36.5 C 118 H 20 108/82 93 Room Air PG Care Time/CCT Total # of Minutes Spent Total Time Spent with Patient: Total time spent is greater than 50% in coordination of care (as documented) at patient's floor/unit and/or counseling patient: Coding Level of Care Code 16971 SUB INP/OBS CARE 3/50MIN Diagnoses Atrial fibrillation, unspecified type I48.91 Atrial fibrillation type: unspecified Acute right-sided congestive heart failure I50.811 Heart failure chronicity: acute Hypoxia R09.02 Hyperbilirubinemia E80.6 (1) Atrial fibrillation Atrial fibrillation type: unspecified Qualified Code(s): I48.91 - Unspecified atrial fibrillation (2) Right-sided congestive heart failure Heart failure chronicity: acute Qualified Code(s): I50.811 - Acute right heart failure
[2024-02-06 16:41] LABS: BUN Creatinine Ratio 19.6 (10-20); Calcium 8.5 mg/dl (8.6-10.3); Creatinine Clr Calc Pharmacy 142.3 ml/min; Magnesium 1.8 mg/dl (1.7-2.4); Potassium 3.6 mmol/L (3.5-5.1)
--- NOTE | 2024-02-06 20:24 | Ultrasound Report ---
Exam(s): US VENOUS BILATERAL LOWER EXTREMITIES EXAM: US Duplex Bilateral Lower Extremities Veins CLINICAL HISTORY: Reason for exam: edema, hx of thromboembolism. TECHNIQUE: Real-time duplex ultrasound scan of the bilateral lower extremity veins integrating B-mode two-dimensional vascular structure, Doppler spectral analysis, color flow Doppler imaging and compression. COMPARISON: No relevant prior studies available. FINDINGS: Right deep veins: No DVT in the right common femoral, femoral, proximal deep femoral or popliteal veins. Nonocclusive acute DVT within a deep intramuscular vein in the popliteal fossa 5 cm from the popliteal vein. Right superficial veins: Unremarkable. No thrombus in the visualized right great saphenous vein. Left deep veins: No acute DVT in the left common femoral, femoral, proximal deep femoral or popliteal veins. Chronic recanalized DVT in the femoral vein and popliteal vein. Left superficial veins: Eccentric nonocclusive DVT in the great saphenous vein may be chronic. Soft tissues: Bilateral calf soft tissue edema. IMPRESSION: 1. Acute nonocclusive DVT within an intramuscular vein at the right popliteal fossa, 5 cm from the popliteal vein. 2. No acute DVT in the left lower extremity. 3. Left great saphenous vein demonstrates eccentric nonocclusive thrombus which may represent chronic superficial thrombophlebitis. Communications: Verify Receipt with Nurse Electronically signed by: Jose Baxter M.D. 02/06/24 20:24 PM
--- NOTE | 2024-02-06 20:58 | Communication Note ---
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 Upon chart review, it appears that patient was only taking his Eliquis 5mg once daily prior to admission and was returned to BID dosing on admission. Will given an additional 5mg of Eliquis tonight (total dose received this evening is 10mg) so that patient has received the typical dosing for acute DVT, however would consider hematology input for further recommendations for his anticoagulation. Will order anti-Xa level in the interim. Resident Activity Tracking Resident Involvement: Resident Care Provided Care Provided: Adult Hospital Medicine
[2024-02-06] MEDS: APIXABAN 5 MG TABLET PO ONE (21:58)
[2024-02-07 08:01] LABS: Hematocrit (blood only) 44.7 % (42.0-52.0); Hemoglobin 14.8 g/dl (14.0-18.0); Mean Corpuscular Hemoglobin 29.9 pg (25.0-34.0); Mean Corpuscular Hgb Conc 33.1 g/dL (32.0-36.0); Mean Corpuscular Volume 90.3 fL (80.0-100.0); Mean Platelet Volume 10.7 fL (9.4-12.4); Platelet Count 267 K/uL (130-400); RDW Coefficient of Variation 14.2 % (11.5-14.5); RDW Standard Deviation 47.1 fL (36.4-46.3); Red Blood Count 4.95 M/uL (4.70-6.10); White Blood Count 6.76 K/ul (4.8-10.8)
[2024-02-07 08:25] LABS: Albumin Globulin Ratio 1.1 (0.9-2); Albumin Level 3.6 gm/dl (3.4-5.0); BUN Creatinine Ratio 23.5 (10-20); Bilirubin,Total 1.7 mg/dl (0.2-1.0); Calcium 8.6 mg/dl (8.6-10.3); Creatinine Clr Calc Pharmacy 153.7 ml/min; Globulin 3.2 gm/dl (2.5-4.0); Magnesium 1.8 mg/dl (1.7-2.4); Potassium 3.6 mmol/L (3.5-5.1); Total Protein 6.8 gm/dl (6.0-8.3)
--- NOTE | 2024-02-07 08:47 | Cardiology Progress Note ---
Date of Service February 07, 2024 Assessment & Plan (1) HFrEF (heart failure with reduced ejection fraction): (2) Atrial fibrillation with rapid ventricular response: (3) Right-sided congestive heart failure: (4) Recurrent deep vein thrombosis (DVT): (5) Factor V deficiency: Plan Mr. Flores continues to be dyspneic. Recommend continuing diureses until his creatinine starts to bump. He was started on Entresto low dose yesterday. I'm not sure we'll be able to titrate up given his low normal blood pressures. Case management is working on getting him a Life Vest at discharge given his significantly reduced EF. His heart failure is likely tachycardia induced from AFib RVR. Unfortunately, he was only taking Eliquis once a day so we will have to wait 3 weeks for cardioversion now that he is taking it bid. He was started on amiodarone to help with maintaining NSR. This is not a great choice of medications given his underlying pulmonary issues as well as early cirrhosis on ultrasound, but given his ventricular function, maintaining SR is paramount. 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 It sounds like his afib was possibly tripped off by a febrile viral illness at the beginning of December. Metoprolol was added yesterday for for rate control as well as for his systolic heart failure. His blood pressure does not allow for more metoprolol so I will add digoxin today for better rate control. He will need a dig level drawn in a week. He should see sleep medicine for further guidance on his obesity hypoventilation syndrome. Doppler of his lower extremities showed right lower extremity DVT. CTA at admission was negative for PE. Apixaban dosing for DVT per hospitalists. Admission and Anticipated Discharge Date Admission Date: February 03, 2024 Subjective Mr. Flores continues to be dyspneic with exertion. Lower extremity edema a little better. No chest pain. Heart rates on the monitor 1teens in afib. Review of Systems Review of Systems: All systems reviewed & are unremarkable except as noted in HPI & below Physical Exam Constitutional: WD/WN, vitals as above Respiratory: normal respiratory effort, lungs clear to auscultation Cardiovascular: Rate/Rhythm: + abnormal rate and + abnormal rhythm Extremities: + edema (bilateral LE) Skin: no rashes, warm and dry venous stasis dermatitis lower extremities Neurologic: moves all extremities and awake Psychiatric: A+Ox3, euthymic affect Results & Data Vital Signs (Past 12 Hours) Vital Signs Temp Pulse Pulse Resp BP Pulse Ox O2 Del Method 02/07/24 07:42 103 H 02/07/24 07:40 36.7 C 104 H 18 102/70 92 Room Air 02/07/24 02:42 36.9 C 103 H 20 106/69 92 Room Air 02/06/24 22:35 36.9 C 91 H 20 104/70 90 Room Air (3) Right-sided congestive heart failure Heart failure chronicity: acute Qualified Code(s): I50.811 - Acute right heart failure
[2024-02-07 09:24] LABS: ANTI-Xa, UFH(UnfractionatedHep > 1.50 IU/ml (0.3-0.7)
[2024-02-07] MEDS: APIXABAN 5 MG TABLET PO ONE (12:15)
--- NOTE | 2024-02-07 13:44 | XRay Report ---
XR foot LT min 3V routine CLINICAL HISTORY: puncture wound, r/o osteo COMPARISON: Left foot radiographs October 01, 2022. FINDINGS: Alignment of the left foot is anatomic. Tarsometatarsal joints are intact. No acute fractu res are present. No radiopaque foreign bodies are identified. Dorsal foot soft tissue swelling is not ed. Subtle soft tissue irregularity and lucency along the lateral aspect of the left fifth metatarsal head likely reflects a wound. No bony erosion within the left foot is present. IMPRESSION: 1. Lateral left foot wound. No evidence for acute osteomyelitis. No radiopaque foreign bodies. 2. Dorsal foot soft tissue swelling. ACT 112: Negative or not required by law. Electronically signed by: Lalo Wright M.D. 02/07/2024 1:41 PM
[2024-02-07] MEDS: DIGOXIN 0.125 MG TAB PO ONE (13:52)
--- NOTE | 2024-02-07 17:56 | Hospitalist Progress Note ---
Date of Service February 07, 2024 Assessment & Plan (1) Atrial fibrillation: Plan: This is a 58 year old male with past medical history of triple A repair, PE, hypoxia, COPD, Factor V Leiden, GERD, DEWEY on CPAP who presented to the ED on 02/03/2024 with a chief complaint of shortness of breath. Baseline room air w/ portable oxygen prn. CXR: findings consistent w/ emphysema CTA: negative for PE Echo 02/03: LVEF 20-25%. beat to beat variability in EF due to A fib w/ RVR. severe global hypokinesis of left ventricle. septal dyskinesis. mild-moderate tricuspid regurgitation. RV systolic pressure elevated at 30-40mmhg prior Echo 2022 revealed EF of 65% CRP: 1.95. Troponin elevated at 28.2, repeat 25.6 Cardiology consulted and following: Continue Amiodarone 400mg BID Lasix 60mg IV BID for diuresis until bump in creatinine Diltiazem drip stopped and Metoprolol tartrate 25mg BID started 02/05 Entresto added on 02/05 Patient will have to wait 3 weeks for cardioversion since he was on incorrect dosing of Eliquis at home. Life Vest delivered 02/06 Added Dig for rate control - check dig level in one week (02/13) Replete electrolytes as necessary given aggressive diuresis. Fluid restriction, low sodium added to diet. AM CBC, CMP, Magnesium (2) Recurrent deep vein thrombosis (DVT): Plan: LE doppler: Acute nonocclusive DVT within an intramuscular vein at the right popliteal fossa, 5 cm from the popliteal vein. Left great saphenous vein demonstrates eccentric nonocclusive thrombus which may represent chronic superficial thrombophlebitis. - increase Eliquis to 10mg BID x7 days (3) Puncture wound of left foot: Plan: reports dog stepped on him 2-3 weeks ago xray: without signs of osteomyelitis. Dorsal foot soft tissue swelling Started Augmentin 875 BID (4) Right-sided congestive heart failure: Plan: see plan above (5) Hypoxia: Plan: resolved, on room air (6) Hyperbilirubinemia: Plan: Total Bilirubin on admission elevated at 2.6. Direct bili 0.7 per patient he endorses history of heavy alcohol usage but hasn't drank in ~ 10 years. etiology: underlying cirrhosis vs congestive hepatopathy RUQ US performed: contracted GB and findings concerning for early cirrhosis. TB 2.6 on admission,continues to downtrend . Plan Chronic conditions: HLD: statin GERD: PPI BPH: tamsulosin DVT prophylaxis: Eliquis dose Disposition: continued inpatient stay treating AFIB RVR Discussed w/ cardiology 02/05 and 02/06 Admission and Anticipated Discharge Date Admission Date: February 03, 2024 Supervising Physician Co-Signing Physician Notes Attending Attestation - Chart reviewed, care plan d/w JOSEY Fowler. I agree w/ the ferrara components of her documentation. Appreciate cardiology assistance. Juanjo Valadez MD Subjective Patient seen sitting at the side of the bed - does not feel that his heart is beating that fast except for when he is moving around wound on left foot draining yellow liquid - was stepped on by a dog, does report fevers and chills over the last few weeks at home - did not go to obligations to dress as Joan bc he was too ill States he takes lasix at home occasionally when he feels like his legs are swollen - does not feel swolllen right now, would think his dry weight is around 345# Tele - afib 100-130s Review of Systems Review of Systems: All systems reviewed & are unremarkable except as noted in Subjective Physical Exam Physical Exam: General: NAD, VS as above, obese, sitting at the edge of the bed Resp: normal respiratory effort, lungs clear to auscultation CV: afib, tachycardic, no murmur, Abd: normal bowel sounds, mildy distended Extremities: Moves all extremities, 2+ LE edema Neuro: A&O x3, Skin: left foot with puncture wound, draining yellow liquid Results & Data Results & Data Vital Signs (Past 12 Hours) Vital Signs Temp Pulse Pulse Resp BP Pulse Ox O2 Del Method 02/07/24 15:23 97.7 F 115 H 20 97/61 L 94 Room Air 02/07/24 13:52 114 H 02/07/24 12:00 110 H 02/07/24 11:28 99.0 F 114 H 18 105/57 L 94 Room Air 02/07/24 07:42 103 H 02/07/24 07:40 98.1 F 104 H 18 102/70 92 Room Air Laboratory Results cbc and chemistry reviewed PG Care Time/CCT Total # of Minutes Spent Total Time Spent with Patient: Total time spent is greater than 50% in coordination of care (as documented) at patient's floor/unit and/or counseling patient: Coding Level of Care Code 77789 SUB INP/OBS CARE 350MIN Diagnoses Atrial fibrillation, unspecified type I48.91 Atrial fibrillation type: unspecified Recurrent deep vein thrombosis (DVT) I82.409 Puncture wound of left foot S91.332A Acute right-sided congestive heart failure I50.811 Heart failure chronicity: acute Hypoxia R09.02 Hyperbilirubinemia E80.6 (1) Atrial fibrillation Atrial fibrillation type: unspecified Qualified Code(s): I48.91 - Unspecified atrial fibrillation (4) Right-sided congestive heart failure Heart failure chronicity: acute Qualified Code(s): I50.811 - Acute right heart failure
[2024-02-07] MEDS: AMOXICILLIN/CLAVULANATE 875 MG TAB PO SCH (18:16)
[2024-02-07] MEDS: APIXABAN 5 MG TABLET PO SCH (22:02)
[2024-02-08 08:15] LABS: Hematocrit (blood only) 44.8 % (42.0-52.0); Hemoglobin 14.6 g/dl (14.0-18.0); Mean Corpuscular Hemoglobin 29.9 pg (25.0-34.0); Mean Corpuscular Hgb Conc 32.6 g/dL (32.0-36.0); Mean Corpuscular Volume 91.6 fL (80.0-100.0); Mean Platelet Volume 10.7 fL (9.4-12.4); Platelet Count 270 K/uL (130-400); RDW Coefficient of Variation 14.3 % (11.5-14.5); RDW Standard Deviation 48.5 fL (36.4-46.3); Red Blood Count 4.89 M/uL (4.70-6.10); White Blood Count 6.52 K/ul (4.8-10.8)
[2024-02-08 08:36] LABS: Alanine Aminotransferase 9 U/L (7-52); Albumin Globulin Ratio 1.1 (0.9-2); Albumin Level 3.5 gm/dl (3.4-5.0); Alkaline Phosphatase 76 U/L (34-104); BUN Creatinine Ratio 21.7 (10-20); Bilirubin,Total 1.3 mg/dl (0.2-1.0); Blood Urea Nitrogen 25 mg/dl (6-23); Calcium 8.6 mg/dl (8.6-10.3); Carbon Dioxide 33 mmol/L (21-32); Chloride 100 mmol/L (98-107); Creatinine Clr Calc Pharmacy 113.5 ml/min; Globulin 3.2 gm/dl (2.5-4.0); Glucose 126 mg/dl (70-99(Fasting)); Total Protein 6.7 gm/dl (6.0-8.3)
[2024-02-08 09:17] LABS: Magnesium 1.7 mg/dl (1.7-2.4); Potassium 3.7 mmol/L (3.5-5.1)
--- NOTE | 2024-02-08 11:43 | Cardiology Progress Note ---
Date of Service February 08, 2024 Assessment & Plan (1) HFrEF (heart failure with reduced ejection fraction): (2) Atrial fibrillation with rapid ventricular response: (3) Cardiomyopathy: Plan ASSESSMENT/PLAN: 1. Acute heart failure with reduced EF: Still appears hypervolemic with net negative fluid balance this hospital stay of 8.9 L. BUN and creatinine increased slightly from yesterday and with such profound diuresis, will reduce Lasix dose for now to 60 mg once daily after net negative fluid balance of over 3.9 L yesterday. Achieving improved rate control and hopefully sinus rhythm may improve heart failure and LV systolic function. Continue metoprolol but on dis charge, recommend metoprolol succinate. Continue Entresto. Start spironolactone tomorrow. Recommend SGLT2 inhibitor if no contraindication. Low-sodium diet, strict I's and O's, daily weights while hospitalized. 2. Atrial fibrillation: Persistent and tachycardic. Increase metoprolol to tartrate to 25 mg p.o. every 6 hours for now but recommend transition to succinate given heart failure with reduced EF on discharge. Digoxin and amiodarone have been initiated by other providers earlier this hospital stay. Monitor digoxin level, TSH, and transaminase levels while on amiodarone. Given new onset A-fib and heart failure, ordered TSH today. If unable to adequately rate control, can consider transesophageal echo and cardioversion but will defer further treatment to [facility] cardiology team. Continue anticoagulation for stroke risk reduction. 3. Cardiomyopathy: Baden to be tachycardia induced. Hopefully will improve with either holiness of sinus rhythm or at least rate control of atrial fibrillation. Continue medical therapy as above. A LifeVest has been placed by the primary cardiology team. 4. Recurrent DVT: As per primary hospitalist service. Patient reports IVC filter in place. Known factor V Leiden mutation. Was unable to achieve therapeutic dosing of warfarin in the past. Had recurrent DVT on Pradaxa per records and had adverse reaction to Xarelto. 5. Disposition: Patient care discussed with primary hospitalist service, Raya Chaparro PA-C. Dr. Herron to resume cardiology care tomorrow. Admission and Anticipated Discharge Date Admission Date: February 03, 2024 Subjective Patient seen this morning, covering for Dr. Herron. He still has dyspnea on exertion while ambulating in the room and orthopnea but he states that these are both chronic issues. In general, he states that his breathing is much improved. He feels palpitations, mostly in his neck. He has not had any further chest pain. He noticed some blood on the toilet paper after a bowel movement but otherwise denies melena or hematochezia. He has chronic lower extremity swelling but states that it has improved. Nursing staff states that he has diuresed very well in the past 24 hours. He very much wants to go home soon. Physical Exam Physical Exam: Gen.: No acute distress. Alert and oriented. HEENT: Anicteric sclera. Neck: Thick/bearded neck but mild JVD noted. Cardiac: Irregularly irregular. Tachycardic. Normal S1-S2. No murmurs, rubs, or gallops. Pulmonary: Clear to auscultation bilaterally without wheezes, rales, or rhonchi. Abdomen: Soft, nontender, nondistended, with normoactive bowel sounds. No bruits noted. Extremities: 2+ radial pulses bilaterally. 1+ bilateral lower extremity edema. Psychiatric: Affect appears appropriate. Results & Data Vital Signs (Past 12 Hours) Vital Signs Temp Pulse Pulse Resp BP Pulse Ox O2 Del Method 02/08/24 10:36 36.5 C 98 H 18 99/81 L 92 Room Air 02/08/24 07:50 127 H 02/08/24 07:27 36.5 C 87 19 113/65 97 Nasal Cannula 02/08/24 02:58 37.3 C 128 H 20 115/82 95 Room Air Intake & Output 02/06/24 02/07/24 02/08/24 02/09/24 06:59 06:59 06:59 06:59 Intake Total 1196.75 / 1196.75 792.25 / 792.25 1220 / 1220 Output Total 3150 / 3150 2901 / 2901 5150 / 5150 1400 / 1400 Balance -1953.25 / -1953.25 -2108.75 / -2108.75 -3930 / -3930 -1400 / -1400 Weight 361 lb 8.929 oz 360 lb 3.765 oz 359 lb 12.71 oz Laboratory Results Laboratory Results - last 24 hr 02/08/24 02/08/24 08:00 08:40 WBC 6.52 RBC 4.89 Hgb 14.6 Hct 44.8 MCV 91.6 MCH 29.9 MCHC 32.6 RDW Std Deviation 48.5 H RDW Coeff of Bala 14.3 Plt Count 270 MPV 10.7 Sodium TNP 138 Potassium TNP 3.7 Chloride 100 Carbon Dioxide 33 H Anion Gap TNP BUN 25 H Creatinine 1.15 D Est Cr Clr Drug Dosing 113.5 eGFR 73.77 BUN/Creatinine Ratio 21.7 H Glucose 126 H Calcium 8.6 Magnesium TNP 1.7 Total Bilirubin 1.3 H AST TNP 13 ALT 9 Alkaline Phosphatase 76 Total Protein 6.7 Albumin 3.5 Globulin 3.2 Albumin/Globulin Ratio 1.1 Diagnostic Findings Telemetry personally reviewed: Atrial fibrillation with rapid ventricular response. Heart rate was 120s when reviewed this morning. Labs reviewed and notable for slightly increased BUN and creatinine from previous, normal potassium, normal sodium level, normal blood counts, normal transaminase levels. Chart reviewed. Echo report reviewed from 02/04/2024: Severely reduced LV systolic function. Medications Administered Current Inpatient Medications Acetaminophen (Acetaminophen 325 Mg Tab) 650 mg PO Q4H PRN PRN Reason: Pain or Fever Stop: 03/04/24 16:29 Last Admin: 02/03/24 19:54 Dose: 650 mg [facility]iodarone HCl ([facility] 200 Mg Tab) [facility] [place]: 03/05/24 16:59 Last Admin: 02/08/24 09:01 Dose: 400 mg Amoxicillin/Clavulanate Potassium (Amoxicillin/Clavulanate 875 Mg Tab) 1 tab PO BIDM [facility]; Protocol Stop: 02/14/24 17:44 Last Admin: 02/08/24 09:01 Dose: 1 tab Apixaban (Apixaban 5 Mg Tablet) 10 mg PO BID [facility] Stop: 02/13/24 09:01 Last Admin: 02/08/24 09:03 Dose: 10 mg Apixaban (Apixaban 5 Mg Tablet) 5 mg PO BID [facility] Stop: 03/14/24 20:59 Aspirin (Aspirin 81 Mg Ectab) 81 mg PO [facility] Stop: 03/06/24 08:59 Last Admin: 02/08/24 09:01 Dose: 81 mg Atorvastatin Calcium (Atorvastatin 40 Mg Tab) 40 mg PO [facility] Stop: 03/05/24 08:59 Last Admin: 02/08/24 09:01 Dose: 40 mg Digoxin (Digoxin 0.125 Mg Tab) 0.125 mg PO DAILY@1600 [facility] Stop: 03/09/24 15:59 Fluticasone Furoate (Fluticasone Furoate 200mcg 14 Puffs/Inhaler) 1 puffs INH DAILY [facility] Stop: 03/05/24 08:59 Last Admin: 02/08/24 09:02 Dose: 1 puffs Furosemide (Furosemide 40 Mg/4 Ml Vial) 60 mg IV BID [facility] Stop: 03/06/24 20:59 Last Admin: 02/08/24 09:09 Dose: 60 mg Metoprolol Tartrate (Metoprolol Tartrate 1 Mg/Ml Vial) 2.5 mg IV Q6H PRN PRN Reason: HR > 120 Stop: 03/06/24 16:44 Metoprolol Tartrate (Metoprolol Tartrate 25 Mg Tab) 25 mg PO BID [facility] Stop: 03/07/24 09:29 Last Admin: 02/08/24 09:01 Dose: 25 mg Ondansetron HCl (Ondansetron Inj 2 Mg/Ml 2 Ml Vial) 4 mg IV Q6H PRN PRN Reason: Nausea Stop: 03/04/24 16:29 Pantoprazole Sodium (Pantoprazole 40 Mg Tab) 40 mg PO QAM [facility] Stop: 03/05/24 08:59 Last Admin: 02/08/24 09:02 Dose: 40 mg Polyethylene Glycol (Polyethylene (Miralax) 17 Gm Pack) 17 gm PO DAILY PRN PRN Reason: Constipation Stop: 03/04/24 16:29 Sacubitril/Valsartan (Valsartan/Sacubitril 26/24mg Tab) 1 tab PO BID [facility] Stop: 03/07/24 09:29 Last Admin: 02/08/24 09:01 Dose: 1 tab Tamsulosin HCl (Tamsulosin Hcl 0.4 Mg Cap) 0.4 mg PO QPM [facility] Stop: 03/04/24 20:59 Last Admin: 02/07/24 22:03 Dose: 0.4 mg Umeclidinium/Vilanterol (Umeclidinium/Vilanterol 62.5/25mcg 7 Puffs/Inhaler) 1 puffs INH DAILY [facility] Stop: 03/05/24 08:59 Last Admin: 02/08/24 09:02 Dose: 1 puffs PG Care Time/CCT Total # of Minutes Spent Total Time Spent with Patient: Total time spent is greater than 50% in coordination of care (as documented) at patient's floor/unit and/or counseling patient: Coding Level of Care Code 45722 SUB INP/OBS CARE 3/50MIN Diagnoses HFrEF (heart failure with reduced ejection fraction) I50.20 Atrial fibrillation with rapid ventricular response I48.91 Cardiomyopathy I42.9
[2024-02-08] MEDS: METOPROLOL TARTRATE 25 MG TAB PO SCH (13:42)
--- NOTE | 2024-02-08 13:51 | Hospitalist Progress Note ---
Date of Service February 08, 2024 Assessment & Plan (1) Atrial fibrillation: Plan: This is a 58 year old male with past medical history of triple A repair, PE, hypoxia, COPD, Factor V Leiden, GERD, DEWEY on CPAP who presented to the ED on 02/03/2024 with a chief complaint of shortness of breath. Baseline room air w/ portable oxygen prn. CXR: findings consistent w/ emphysema CTA: negative for PE Echo 02/03: LVEF 20-25%. beat to beat variability in EF due to A fib w/ RVR. severe global hypokinesis of left ventricle. septal dyskinesis. mild-moderate tricuspid regurgitation. RV systolic pressure elevated at 30-40mmhg prior Echo 2022 revealed EF of 65% CRP: 1.95. Troponin elevated at 28.2, repeat 25.6 Cardiology consulted and following: Continue Amiodarone 400mg BID Lasix 60mg decrease to once daily Metoprolol tartrate increase to 25 mg every 6 hours (transition to succinate at discharge) Entresto added on 02/05. add spironolactone 02/08. Consider SGLT2 inhibitor Patient will have to wait 3 weeks for cardioversion since he was on incorrect dosing of Eliquis at home. Life Vest delivered 02/06 Added Dig for rate control - check dig level in one week (02/13) TSH ordered Fluid restriction, low sodium diet. AM CBC, CMP (2) Recurrent deep vein thrombosis (DVT): Plan: LE doppler: Acute nonocclusive DVT within an intramuscular vein at the right popliteal fossa, 5 cm from the popliteal vein. Left great saphenous vein demonstrates eccentric nonocclusive thrombus which may represent chronic superficial thrombophlebitis. - increase Eliquis to 10mg BID x7 days. Back to 5mg BID on 1/6 PM (3) Puncture wound of left foot: Plan: reports dog stepped on him 2-3 weeks ago xray: without signs of osteomyelitis. Dorsal foot soft tissue swelling Started Augmentin 875 BID 02/06 (4) Right-sided congestive heart failure: Plan: see plan above (5) Hypoxia: Plan: resolved, on room air (6) Hyperbilirubinemia: Plan: Total Bilirubin on admission elevated at 2.6. Direct bili 0.7 per patient he endorses history of heavy alcohol usage but hasn't drank in ~ 10 years. etiology: underlying cirrhosis vs congestive hepatopathy RUQ US performed: contracted GB and findings concerning for early cirrhosis. TB 2.6 on admission,continues to downtrend, now 1.3 . Plan Chronic conditions: HLD: statin GERD: PPI BPH: tamsulosin DVT prophylaxis: Eliquis dose Disposition: continued inpatient stay treating AFIB RVR Discussed w/ cardiology 02/05 and 02/06 and 02/07 Admission and Anticipated Discharge Date Admission Date: February 03, 2024 Supervising Physician Co-Signing Physician Notes Attending Attestation - Chart reviewed, care plan d/w JOSEY Fowler. I agree w/ the ferrara components of her documentation. Appreciate cardiology assistance. Cont Rx of decompensated CHF & uncontrolled a.fib. Juanjo Valadez MD Subjective patient seen sitting up in the chair, is eager to go home. States that he does not feel his heart is fast unless he is moving Reports good urine output Feels like his legs are smaller Discussed DNR status and initiation of a LifeVesthe states that he is okay with life-saving measures at his home, his main priorities are to be able to live home independently. He would not want to be maintained on machines or go to a long term. Telemetry A-fib 100-1 30s Physical Exam Physical Exam: General: NAD, VS as above, obese, sitting up in the chair Resp: normal respiratory effort, lungs clear to auscultation CV: afib, tachycardic, no murmur, Abd: normal bowel sounds, mildy distended Extremities: Moves all extremities, 2+ LE edema - however improved from yesterday Neuro: A&O x3, Skin: left foot with puncture wound, no active drainage today Results & Data Results & Data Vital Signs (Past 12 Hours) Vital Signs Temp Pulse Pulse Resp BP Pulse Ox O2 Del Method 02/08/24 10:36 97.7 F 98 H 18 99/81 L 92 Room Air 02/08/24 07:50 127 H 02/08/24 07:27 97.7 F 87 19 113/65 97 Nasal Cannula 02/08/24 02:58 99.1 F 128 H 20 115/82 95 Room Air Laboratory Results CBC and chemistry reviewed PG Care Time/CCT Total # of Minutes Spent Total Time Spent with Patient: Total time spent is greater than 50% in coordination of care (as documented) at patient's floor/unit and/or counseling patient: Coding Level of Care Code 37339 SUB INP/OBS CARE 50MIN Diagnoses Atrial fibrillation, unspecified type I48.91 Atrial fibrillation type: unspecified Recurrent deep vein thrombosis (DVT) I82.409 Puncture wound of left foot S91.332A Acute right-sided congestive heart failure I50.811 Heart failure chronicity: acute Hypoxia R09.02 Hyperbilirubinemia E80.6 (1) Atrial fibrillation Atrial fibrillation type: unspecified Qualified Code(s): I48.91 - Unspecified atrial fibrillation (4) Right-sided congestive heart failure Heart failure chronicity: acute Qualified Code(s): I50.811 - Acute right heart failure
[2024-02-08] MEDS: DIGOXIN 0.125 MG TAB PO SCH (16:52)
[2024-02-09 08:15] LABS: BUN Creatinine Ratio 24.4 (10-20); Calcium 8.5 mg/dl (8.6-10.3); Creatinine Clr Calc Pharmacy 166.8 ml/min; Potassium 3.8 mmol/L (3.5-5.1)
[2024-02-09] MEDS: SPIRONOLACTONE 25 MG TAB PO SCH (08:25)
[2024-02-09] MEDS: FUROSEMIDE 40 MG/4 ML VIAL IV SCH (08:27)
[2024-02-09 10:33] VITALS: TEMP 98.1
--- NOTE | 2024-02-09 11:16 | Cardiology Progress Note ---
Date of Service February 09, 2024 Assessment & Plan (1) HFrEF (heart failure with reduced ejection fraction): (2) Atrial fibrillation with rapid ventricular response: (3) Right-sided congestive heart failure: (4) Recurrent deep vein thrombosis (DVT): (5) Factor V deficiency: Plan He is agreeable to follow up with [facility]-will do this as an outpatient. If DC I will see him in approx 1 week Needs labs on same day BP marginal would keep the metoprolol 25mg-but switch to XL qpm and Entresto / bid for now consider Lasix 80mg po bid for now stay on amio 400mg bid for now loading dose of Eliquis due to acute DVT when I see him in office-will set up for OP cardioversion Admission and Anticipated Discharge Date Admission Date: February 03, 2024 Subjective patient seen sitting up in the chair, is eager to go home. States that he does not feel his heart is fast unless he is moving Reports good urine output Feels like his legs are smaller Discussed DNR status and initiation of a LifeVesthe states that he is okay with life-saving measures at his home, his main priorities are to be able to live home independently. He would not want to be maintained on machines or go to a detention. at rest HR around 100 Discussed importance of wearing O2 24/. He may need Oxygen equipment at home. Review of Systems Review of Systems: All systems reviewed & are unremarkable except as noted in HPI & below Physical Exam Respiratory: diminished b/l Cardiovascular: irregulat, tachy Skin: stasis dermatitis edema decreased skin more wrinkled Results & Data Vital Signs (Past 12 Hours) Vital Signs Temp Pulse Pulse Resp BP BP Pulse Ox 02/09/24 10:33 36.7 C 135 H 16 169/79 H 95 02/09/24 10:18 02/09/24 10:05 36.4 C L 115 H 16 81/58 L 93 02/09/24 05:58 98 H 89/70 L 02/09/24 03:19 36.4 C L 97 H 22 123/82 93 02/08/24 23:32 36.8 C 115 H 20 111/75 94 02/08/24 23:26 119 H O2 Del Method 02/09/24 10:33 Room Air 02/09/24 10:18 Room Air, Nasal Cannula 02/09/24 10:05 Room Air 02/09/24 05:58 02/09/24 03:19 Room Air 02/08/24 23:32 Room Air 02/08/24 23:26 Laboratory Results Abnormal lab results 02/08/24 02/09/24 Range/Units 08:40 06:48 BUN/Creatinine Ratio 24.4 H (10-20) Glucose 106 H (70-99(Fasting)) mg/dl Calcium 8.5 L (8.6-10.3) mg/dl TSH 4.527 H (0.300-4.500) uIu/ml (3) Right-sided congestive heart failure Heart failure chronicity: acute Qualified Code(s): I50.811 - Acute right heart failure
--- NOTE | 2024-02-09 13:00 | Discharge Summary ---
Discharge Summary Date of Service February 09, 2024 Principal Dx & Hospital Course #1 = Principal Diagnosis (1) Atrial fibrillation: This is a 58 year old male with past medical history of triple A repair, PE, hypoxia, COPD, Factor V Leiden, GERD, DEWEY on CPAP who presented to the ED on 02/03/2024 with a chief complaint of shortness of breath. Baseline room air w/ portable oxygen prn. CXR: findings consistent w/ emphysema. CTA: negative for PE - Patient states outpatient providers are working to get him established with [facility] pulmonology Echo 02/03: LVEF 20-25%. beat to beat variability in EF due to A fib w/ RVR. severe global hypokinesis of left ventricle. septal dyskinesis. mild-moderate tricuspid regurgitation. RV systolic pressure elevated at 30-40mmhg prior Echo 2022 revealed EF of 65% Troponin elevated at 28.2, repeat 25.6 - like related to demand. TSH borderline elevation (4.527), no reflex T4. No thyroid supplementation will be started at this time, however should continue to monitor with continued amiodarone use Cardiology consulted - patient has LifeVest delivered 02/06 for reduced EF (confirms that he would not want this even though he is in hospital DNR), multiple medication changes but discussed with Dr. Herron and upon discharge remains on amiodarone 400 mg twice daily, Lasix 80 mg p.o. twice daily, metoprolol succinate 25 mg and Entresto. Educated on fluid and salt restrictions, and daily weights. Cardiology also recommending he be on oxygen continuously at 2 L. Qualified for home oxygen with ambulation, able have a concentrator delivered to his home. He has a portable unit that he had purchased himself and is functional. Plan is for discharge today with close outpatient cardiology follow-up that is already arranged. He has a paper prescription for a BMP and BNP to have done at the [facility] office prior to his appointment so Dr. Colon can review the results. (2) Recurrent deep vein thrombosis (DVT): LE doppler: Acute nonocclusive DVT within an intramuscular vein at the right popliteal fossa, 5 cm from the popliteal vein. Left great saphenous vein demonstrates eccentric nonocclusive thrombus which may represent chronic superficial thrombophlebitis. - increase Eliquis to 10mg BID x7 days. Back to 5mg BID on 1/6 PM - Patient was taking Eliquis inappropriately at home, states he has bottles and bottles of it because of this. No new prescription was sent (3) Puncture wound of left foot: reports dog stepped on him 2-3 weeks ago xray: without signs of osteomyelitis. Dorsal foot soft tissue swelling Started Augmentin 875 BID 02/06 for 7-day course. Encouraged to follow-up with outpatient wound care. (4) Right-sided congestive heart failure: see plan above (5) Hypoxia: resolved, on room air (6) Hyperbilirubinemia: Total Bilirubin on admission elevated at 2.6. Direct bili 0.7 per patient he endorses history of heavy alcohol usage but hasn't drank in ~ 10 years. etiology: underlying cirrhosis vs congestive hepatopathy RUQ US performed: contracted GB and findings concerning for early cirrhosis. TB 2.6 on admission, Downtrended to 1.3 prior to admission. Patient without abdominal pain. Recommend continued outpatient workup Plan Chronic conditions: HLD: statin GERD: PPI BPH: tamsulosin dispo: Discharge to home today Discussed w/ cardiology 02/05 and 02/06 and 02/07, 02/08 Notes For Next Care Provider newly diagnosed reduced ejection fractionwill need close cardiology follow- up, multiple medication changes Patient states he is considering converting all his care to [facility] so that everything is within 1 health systemhe should have outpatient referral to pulm and sleep medicine. Has paper slip for labs. Medication Changes From Visit Amiodarone twice daily Lasix 80 mg twice daily Metoprolol 25 mg a.m. Entresto Twice daily Admission HPI Per Admitting Provider This is a 58 year old male with past medical history of triple A repair, PE, hypoxia, COPD, Factor V Leiden, GERD, DEWEY on CPAP who presented to the ED on 02/03/2024 with a chief complaint of shortness of breath. Patient reports he had a respiratory illness ~4 weeks ago during season. States he was experiencing fevers as high as 102F for 1 week. He reports his symptoms related to the illness resolved but he persisted with SOB. He was also experiencing chest pressure but feels that this has lessened since reporting to the ER. He has been experiencing some numbness in his extremities as well. Predominantly on the left. He reports decreased appetite recently and has only been eating 1 meal per day. Denies any nausea, vomiting, or changes in bowel habits. Denies any abdominal pain. Denies any urinary symptoms including frequency, urgency, or hematuria. He states that he has oxygen to use as needed but has recently had to use it 24/7 on 5L and was still persisting with SOB at home. He also has a history of COPD but states that he does not use his Trelegy inhaler at home because he feels it does not help. He also is reportedly only taking his Eliquis once daily instead of twice daily. Patient is a former tobacco smoker, quitting about 6 years ago. Per documentation, patient has an allergy to iodine. Patient reports he has had to be intubated on multiple occasions due to iodine but also stated that Dr. Diaz told him he did not have an allergy. Patient has been premedicated with steroids prior to contrast and has had no issues. Discussion of code status took place in which patient reports he has a DNR/DNI filed and believes his PCP has a copy. Discharge Exam General: NAD, VS as above, obese, sitting up in the chair Resp: normal respiratory effort, lungs clear to auscultation CV: afib, tachycardic, no murmur, Abd: normal bowel sounds, mildy distended Extremities: Moves all extremities, 2+ LE edema - however improved from yesterday Neuro: A&O x3, Skin: left foot with puncture wound Not visualized as recently dressed by wound care Discharge Plan Discharge Items Patient Disposition: Home - Self-Care Reason For Visit: SOB Discharge Diagnosis: afib RVR Activity: Resume your previous activity Non-emergency contact: Primary Care Provider and [place] [place] Call non-emergency contact if: you have any medication questions, your symptoms worsen and your temperature is above 101 Follow-up/Referrals: Enid Hill MD [Primary Care Provider] - Sydney Herron DO [Physician] - (follow up one week ) Diet: Heart Healthy and Low Sodium (2gm) Addtl Attending Provider Instructions: Mr. Flores, You were hospitalized after worsening shortness of breath - you were found to be in a rapid heart rhythm called afib. During your stay you have remained in this rhythm despite multiple medications changes, unfortunately you are unable to have the shock on your heart yet because your Eliquis has not been taken properly (instructions on that below). You are to have close follow up with Dr. Colon next week, if you do not hear from her office by Tuesday, please call them to confirm your appointment. I have provided a paper script for you to get lab work done - please do this the day of your appointment so Dr. Colon can review them. Cardiology has recommended that you wear oxygen continuously - a new concentrator is going to be delivered to your home. This will also help with your heart function. Please continue to wear your life vest 30/08. This was ordered due to your decreased ejection fraction of your heart. Medication changes: * Amiodarone - 400mg twice a day with meals (breakfast and dinner) * Lasix - dose increased to 80mg twice a day, this new strength was sent to your pharmacy * Augmentin - this is an antibiotics take twice a day with meals (breakfast and dinner) * Entresto - this is to help your heart, you take this twice a day as well * Eliquis - you need to be taking 10mg (2 pills) TWICE a day through 02/12, on 02/13 switch to 5mg ( 1 pill) ONCE a day * Metoprolol - 25mg take this every morning Recommendations: * Please monitor your salt intake, no more than 2g per day as this can cause more fluid retention * Please weight yourself every day - contact your data entry manager if gaining more than 2 pounds in one day or 5 pound in one week * Do not drink more than 2 Liters of fluid a day * Continue to wear the life vest continuously * There were concerns for early cirrhosis on abdominal ultrasound - you should continue to have this worked up with your PCP. * Elevate your legs when able Activity: You can do normal everyday activities as your body allows. Take rest breaks if you feel tired. Do not overexert. Stop activity if you have pain, shortness of breath or feel dizzy. Follow-up appointments: Make an appointment with your primary care physician within one week of discharge. A copy of this summary will be sent to them. Every time you see your primary care physician, or any other doctor, bring your medication list, and a list of questions. CONTACT YOUR PRIMARY CARE PROVIDER if you experience any of the following: Shortness of breath or difficulty breathing Fevers or chills Feeling tired with normal activity or experiencing dizziness or fainting Difficulty following your treatment plan, or difficulty taking medications CALL 911 OR GO TO THE EMERGENCY DEPARTMENT if you experience any of the following: Severe abdominal pain or nausea/vomiting Severe chest pain, or chest pain that radiates (moves) to your jaw or arm Sudden, severe shortness of breath or difficulty breathing Thank you for allowing us to participate in your care. Addtl Branch Chief Provider Instructions: Call 911 and go to the Emergency Room if: * You have tightness or pain in your chest that does not go away with rest * You are very short of breath even with rest Call your doctor if any of the following symptoms or problems start or get worse: * Shortness of breath or difficulty breathing * Wake up at night short of breath * Chest pain * Cough * Swelling of your hands, fee, or legs * More fatigued or tired with your normal activity * Palpitations - sudden fast heart beats WEIGHT * Weigh yourself every morning after using the bathroom. * Use the same scale. * Wear the same amount of clothing. * Write your weight down on your chart. * Call your doctor if you gain more than 2-3 pounds in 1-2 days. MEDICATIONS * Use this discharge instruction sheet for instructions. * Take your medications at the time your doctor ordered. * Do not skip a dose of your medicines. * If you miss a dose of medicine, take as soon as possible, but DO NOT DOUBLE A DOSE. * Read your medicine information when you get home. * Know all of the side effects of your medicine. * Call your doctor's office if you have any side effects. * Be sure all of your doctors know what medicine and herbs you take (including cold, flu, and herbal medicine). * Pain Medicine: If you do not get relief from your pain, please call your doctor for help. Take the following with you to your follow-up doctor appointments: * Weight Chart * Medication List * List of questions Do not drink excessive alcohol, beer or wine. Pending Studies at Discharge: No Stand-Alone Forms: [employer] Smoking Cessation Medications and DC Order Prescriptions: New amoxicillin-pot clavulanate 875-125 mg Tablet 1 tab PO BIDM Qty: 10 0RF Rx Instructions: twice a day - breakfast and dinner amiodarone 200 mg Tablet 400 mg PO BIDM 30 Days Qty: 120 0RF Rx Instructions: twice a day - breakfast and dinnner sacubitril-valsartan [Entresto] 24-26 mg Tablet 1 tab PO BID Qty: 60 0RF Rx Instructions: morning and night furosemide [Lasix] 80 mg tablet 80 mg PO BID 30 Days Qty: 60 0RF Rx Instructions: Morning and before dinner metoprolol succinate 25 mg tablet extended release 24 hr 25 mg PO DAILY Qty: 30 0RF Rx Instructions: take every morning Continued omeprazole 40 mg Capsule,Delayed Release(Dr/Ec) 40 mg PO QAM Qty: 0 aspirin 325 mg Tablet 1 tab PO QAM Qty: 0 (DME) Oxygen Home Liters Per Minute See Dose Instructions .ROUTE .MEDSUPPLY Qty: 1 0RF Dose Instruction: As directed Rx Instructions: patient to use Oxygen at 2lpm through his CPAP at night (DME) Portable Oxygen Misc See Rx Instructions .ROUTE .MEDSUPPLY Qty: 1 0RF Rx Instructions: 2-4 L/min via NC with exertion to maintain Sa)2 between 88%-92%.. LOS 99 years. DX COPD with hypoxia. Maintain SaO2 88-92%. Needs Portable concentrator (DME) CPAP Machine Misc .Route Qty: 1 0RF Rx Instructions: CPAP 12 cmH2O, mask fit to patient comfort, heated communication, compliance download capabilities tamsulosin [Flomax] 0.4 mg capsule 0.4 mg PO QPM hydrocodone-acetaminophen 10-325 mg Tablet 1 tab PO Q6H PRN (Reason: Pain) pravastatin 20 mg tablet 20 mg PO QAM Rx Instructions: Pt does not believe he's been taking this. metformin 500 mg tablet extended release 24 hr 500 mg PO DAILY Ozempic 1 mg/dose (4 mg/3 mL) pen injector 1 mg SUBCUT WK Rx Instructions: On Tuesday Eliquis 5 mg Tablet 5 mg PO BID Qty: 0 0RF Rx Instructions: take 10mg (2 tabs) twice a day until 02/12, resume 5mg (1 tab) twice a day on 02/13 Trelegy Ellipta 200-62.5-25 mcg blister with device 1 inh INHALATION DAILY Discontinued furosemide 40 mg tablet 40 mg PO QAM Discharge Orders: Discharge Order (Routine); Ordered 02/09/24 Ordered By: Raya Burgos/Other Patient Handouts: Prediabetes, 5 Steps for Eating Healthier, AFib Dc, Heart Failure Dc Admission Data Admit Date/Time: 02/03/24 14:46 Attending Provider: Juanjo Valadez Admit Provider: Jamison Jin Primary Care Provider: Enid Hill Other Providers: Jamison Jin; Sydney Herron. Other Interventions: Discharge Summary Assessment (RN) Last Done: 02/09/24 13:03 Hospital Stay Data Consultations 02/03/24 13:41 ED Decision to Admit Stat 02/03/24 16:30 Consult Cardiology Routine Diagnostic Imagining Performed Chest X-Ray 02/03/24 12:25 XR chest 1V portable HISTORY: 58 years-old Male Dysrhythmia COMPARISON: Chest CT 09/26/2023 TECHNIQUE: AP view the chest FINDINGS: Cardiac silhouette is enlarged. Emphysema with chronic interstitial coarsening. No pneumothorax, pleural effusion or overt pulmonary edema. Linear right midlung atelectasis versus scarring. IMPRESSION: Emphysema without acute process. ACT 112: Negative or not required by law. The above report was generated using voice recognition software. It may contain grammatical, syntax or spelling errors. Electronically signed by: Shaun Escobar M.D. 02/03/2024 1:12 PM Gallbladder Ultrasound 02/03/24 13:43 ABDOMINAL ULTRASOUND, RIGHT UPPER QUADRANT HISTORY: Acute right upper quadrant abdominal pain with elevated LFTs CP, rapid atrial fib, elevated bili. COMPARISON: CTA 10/03/2023 FINDINGS: Pancreas: The pancreas demonstrates a normal echotexture. Liver: Heterogeneity with mildly increased echogenicity. Subtle marginal nodularity. No discrete mass. Small volume of abdominal ascites. Gallbladder: Contracted with mild wall thickening. Negative sonographic Rivera sign. No gallstones. CBD: 8 mm. Right kidney: No hydronephrosis. IMPRESSION: 1. Hepatic steatosis with findings suggestive of early cirrhosis. 2. Trace perihepatic ascites. 3. Contracted gallbladder. ACT 112: Negative or not required by law. Electronically signed by: Shaun Escobar M.D. 02/03/2024 2:44 PM Chest CTA 02/03/24 14:46 CT angio chest PE protocol CT DOSE: 1075.96 mGy.cm HISTORY: 58 years-old Male with SOB. Acute shortness of breath TECHNIQUE: Multiple CTA images of the chest were obtained after the intravenous administration of 120 ml Optiray. Coronal and sagittal MIPS were obtained from the axial data set and were submitted for review. All measurements were obtained according to NASCET criteria. A dose lowering technique was utilized adhering to the principles of ALARA. COMPARISON: Chest CT 09/26/2023 FINDINGS: CTA: Moderate cardiomegaly. No pericardial effusion. Coronary artery calcifications. Atherosclerosis of the thoracic aorta without aneurysm. Dilation of the main pulmonary artery measuring up to 3.8 cm suggestive of pulmonary arterial hypertension. No central pulmonary emboli identified. The segmental and subsegmental branches are not well evaluated secondary to respiratory motion artifact. CT CHEST: Small hypodense thyroid nodules.r mediastinal and hilar lymphadenopathy with hilar lymph nodes measuring up to 1.7 cm the right hilum on image 162. These have increased in size from prior. Small right sided pleural effusion.. Left pleural effusion. No pneumothorax. Moderate pulmonary emphysema. Intralobular septal thickening. Bibasilar mucous plugging with right lower lobe predominant linear consolidation. No suspicious pulmonary nodule is identified. Hepatomegaly with probable hepatic steatosis. Unremarkable soft tissues. Bridging osteophytes noted throughout the spine. No acute fracture identified. IMPRESSION: 1. Cardiomegaly without central pulmonary emboli identified. 2. Interstitial pulmonary edema with small right and trace left pleural effusions. 3. Right basilar predominant consolidation favors atelectasis. Pneumonia considered less likely. 4. Mediastinal and hilar lymphadenopathy is new from the October 03, 2023 exam. 5. Pulmonary emphysema. ACT 112: Negative or not required by law. The above report was generated using voice recognition software. It may contain grammatical, syntax or spelling errors. Electronically signed by: Shaun Escobar M.D. 02/03/2024 4:13 PM Venous Doppler Study 02/06/24 15:38 CR Exam(s): US VENOUS BILATERAL LOWER EXTREMITIES EXAM: US Duplex Bilateral Lower Extremities Veins CLINICAL HISTORY: Reason for exam: edema, hx of thromboembolism. TECHNIQUE: Real-time duplex ultrasound scan of the bilateral lower extremity veins integrating B-mode two-dimensional vascular structure, Doppler spectral analysis, color flow Doppler imaging and compression. COMPARISON: No relevant prior studies available. FINDINGS: Right deep veins: No DVT in the right common femoral, femoral, proximal deep femoral or popliteal veins. Nonocclusive acute DVT within a deep intramuscular vein in the popliteal fossa 5 cm from the popliteal vein. Right superficial veins: Unremarkable. No thrombus in the visualized right great saphenous vein. Left deep veins: No acute DVT in the left common femoral, femoral, proximal deep femoral or popliteal veins. Chronic recanalized DVT in the femoral vein and popliteal vein. Left superficial veins: Eccentric nonocclusive DVT in the great saphenous vein may be chronic. Soft tissues: Bilateral calf soft tissue edema. IMPRESSION: 1. Acute nonocclusive DVT within an intramuscular vein at the right popliteal fossa, 5 cm from the popliteal vein. 2. No acute DVT in the left lower extremity. 3. Left great saphenous vein demonstrates eccentric nonocclusive thrombus which may represent chronic superficial thrombophlebitis. Communications: Verify Receipt with Nurse Electronically signed by: Jose Baxter M.D. 02/06/24 20:24 PM Foot X-Ray 02/07/24 11:53 XR foot LT min 3V routine CLINICAL HISTORY: puncture wound, r/o osteo COMPARISON: Left foot radiographs October 01, 2022. FINDINGS: Alignment of the left foot is anatomic. Tarsometatarsal joints are intact. No acute fractures are present. No radiopaque foreign bodies are identified. Dorsal foot soft tissue swelling is noted. Subtle soft tissue irregularity and lucency along the lateral aspect of the left fifth metatarsal head likely reflects a wound. No bony erosion within the left foot is present. IMPRESSION: 1. Lateral left foot wound. No evidence for acute osteomyelitis. No radiopaque foreign bodies. 2. Dorsal foot soft tissue swelling. ACT 112: Negative or not required by law. Electronically signed by: Lalo Wright M.D. 02/07/2024 1:41 PM Pending Results Patient Have Any Pending Studies at Discharge: No Discharge Instructions Given to Patient (Per Discharging Provider) Mr. Flores, You were hospitalized after worsening shortness of breath - you were found to be in a rapid heart rhythm called afib. During your stay you have remained in this rhythm despite multiple medications changes, unfortunately you are unable to have the shock on your heart yet because your Eliquis has not been taken properly (instructions on that below). You are to have close follow up with Dr. Colon next week, if you do not hear from her office by Tuesday, please call them to confirm your appointment. I have provided a paper script for you to get lab work done - please do this the day of your appointment so Dr. Colon can review them. Cardiology has recommended that you wear oxygen continuously - a new concentrator is going to be delivered to your home. This will also help with y our heart function. Please continue to wear your life vest 30/08. This was ordered due to your decreased ejection fraction of your heart. Medication changes: * Amiodarone - 400mg twice a day with meals (breakfast and dinner) * Lasix - dose increased to 80mg twice a day, this new strength was sent to your pharmacy * Augmentin - this is an antibiotics take twice a day with meals (breakfast and dinner) * Entresto - this is to help your heart, you take this twice a day as well * Eliquis - you need to be taking 10mg (2 pills) TWICE a day through 02/12, on 02/13 switch to 5mg ( 1 pill) ONCE a day * Metoprolol - 25mg take this every morning Recommendations: * Please monitor your salt intake, no more than 2g per day as this can cause more fluid retention * Please weight yourself every day - contact your data entry manager if gaining more than 2 pounds in one day or 5 pound in one week * Do not drink more than 2 Liters of fluid a day * Continue to wear the life vest continuously * There were concerns for early cirrhosis on abdominal ultrasound - you should continue to have this worked up with your PCP. * Elevate your legs when able Activity: You can do normal everyday activities as your body allows. Take rest breaks if you feel tired. Do not overexert. Stop activity if you have pain, shortness of breath or feel dizzy. Follow-up appointments: Make an appointment with your primary care physician within one week of discharge. A copy of this summary will be sent to them. Every time you see your primary care physician, or any other doctor, bring your medication list, and a list of questions. CONTACT YOUR PRIMARY CARE PROVIDER if you experience any of the following: Shortness of breath or difficulty breathing Fevers or chills Feeling tired with normal activity or experiencing dizziness or fainting Difficulty following your treatment plan, or difficulty taking medications CALL 911 OR GO TO THE EMERGENCY DEPARTMENT if you experience any of the following: Severe abdominal pain or nausea/vomiting Severe chest pain, or chest pain that radiates (moves) to your jaw or arm Sudden, severe shortness of breath or difficulty breathing Thank you for allowing us to participate in your care. Total Time Total Time Spent Total Time Spent (In Minutes): Time spent day of discharge 55 minutes including direct patient care, medication reconciliation, documentation, review of labs and images, and coordination of care. Coding Level of Care Code 05409 INP/OBS DISCH >30 MIN Diagnoses Atrial fibrillation, unspecified type I48.91 Atrial fibrillation type: unspecified Recurrent deep vein thrombosis (DVT) I82.409 Puncture wound of left foot S91.332A Acute right-sided congestive heart failure I50.811 Heart failure chronicity: acute Hypoxia R09.02 Hyperbilirubinemia E80.6
[2024-02-09 13:07] VITALS: BP 89/70; PULSE 135; RESP 16; O2SAT 95
[2024-02-13] MEDS ORDERED: APIXABAN 5 MG TABLET PO SCH (21:00)
== END 2024-02-09 14:04 | disposition home or self-care (01) | DRG 309 ==
LOC: SUATTDRO → ED 11:43 → 2S 14:46 → SUATTDRO 14:46 → 2S 16:09